=== PATIENT | male | born 1935 | race Caucasian/White ===

== ENCOUNTER → 2018-05-06 10:45 | Outpatient (CLI) | payer OTHER, SELFPAY ==
[2018-05-06 11:43] LABS: Add Manual Diff / Slide Review NO; Basophils Percent Auto 0.7 % (0-2); Eosinophils Percent Auto 3.6 % (2-4); Hematocrit 46.3 % (41-53); Hemoglobin 15.8 g/dL (13.5-17.5); Mean Corpuscular Hemoglobin 30.7 PG (26-34); Mean Corpuscular Volume 90.1 fL (80-100); Monocytes Percent Auto 8.9 % (3-14); Neutrophils Absolute Auto 6200 /uL (3000-5900); Neutrophils Percent Auto 69.8 % (50-75); Platelet Count 356 X10^3/uL (150-400); Red Blood Cell Count 5.14 X10^6/uL (4.5-5.9); Red Cell Distribution Width 13.1 % (11.6-14.8); White Blood Cell Count 8.8 X10^3/uL (4.5-11.0)
[2018-05-06 12:23] LABS: Alanine Aminotransferase 27 IU/L (21-72); Albumin 4.3 g/dL (3.5-5.0); Albumin Globulin Ratio 1.4 (1.0-2.8); Alkaline Phosphatase 102 U/L (38-126); Aspartate Aminotransferase 26 IU/L (17-59); BUN Creatinine Ratio 18.8 (6-22); Bilirubin Total 1.1 mg/dL (0.2-1.3); Blood Urea Nitrogen 15 mg/dL (9-20); Calcium 9.2 mg/dL (8.4-10.2); Carbon Dioxide 30 mmol/L (22-32); Chloride 106 mmol/L (98-107); Cholesterol 122 mg/dL (140-199); Estimated Glomerular Filt Rate > 60.0 mL/min (>60); Glucose 89 mg/dL (80-110); HDL Cholesterol 38 mg/dL (40-60); HEMOLYSIS < 15 (0-50); LDL Cholesterol Calculated 69 mg/dL (<100); Potassium 5.2 mmol/L (3.4-5.1); Sodium 146 mmol/L (137-145); Total Protein 7.3 g/dL (6.3-8.2); Triglycerides 74 mg/dL (35-150)
[2018-05-06 12:51] LABS: Prostate Specific Antigen Scrn 8.94 ng/mL (0.1-4.0)
[2018-05-06 12:52] LABS: Thyroid Stimulating Hormone 2.66 uIU/mL (0.47-4.68)
== END ==
PROVIDERS: PCP Family Medicine; Visit Provider Family Medicine
DX: E78.2 Mixed hyperlipidemia (principal)
CPT/HCPCS: 36415; 80053; 80061; 84443; 85025; G0103

== ENCOUNTER → 2018-11-11 10:38 | Outpatient (CLI) | payer OTHER, SELFPAY ==
[2018-11-11 11:30] LABS: Add Manual Diff / Slide Review NO; Basophils Absolute Auto 100 /uL (0-100); Basophils Percent Auto 0.6 % (0-2); Eosinophils Absolute Auto 400 /uL (0-450); Eosinophils Percent Auto 4.3 % (2-4); Hematocrit 48.3 % (41-53); Lymphocytes Absolute Auto 1200 /uL (1100-4500); Lymphocytes Percent Auto 13.6 % (25-40); Mean Corpuscular HGB Conc 33.1 % (30-36); Mean Corpuscular Hemoglobin 30.2 PG (26-34); Mean Corpuscular Volume 91.2 fL (80-100); Monocytes Absolute Auto 700 /uL (0-900); Monocytes Percent Auto 8.5 % (3-14); Neutrophils Absolute Auto 6400 /uL (1500-7000); Platelet Count 302 X10^3/uL (150-400); White Blood Cell Count 8.7 X10^3/uL (4.5-11.0)
[2018-11-11 11:49] LABS: Alanine Aminotransferase 30 IU/L (21-72); Albumin 4.4 g/dL (3.5-5.0); Albumin Globulin Ratio 1.3 (1.0-2.8); Alkaline Phosphatase 94 U/L (38-126); Aspartate Aminotransferase 28 IU/L (17-59); BUN Creatinine Ratio 21.4 (6-22); Bilirubin Total 1.9 mg/dL (0.2-1.3); Blood Urea Nitrogen 15 mg/dL (9-20); Carbon Dioxide 29 mmol/L (22-32); Chloride 102 mmol/L (98-107); Cholesterol 124 mg/dL (140-199); Estimated Glomerular Filt Rate > 60.0 mL/min (>60); Globulin 3.4 g/dL (1.7-4.1); Glucose 93 mg/dL (80-110); HDL Cholesterol 32 mg/dL (40-60); HEMOLYSIS < 15 (0-50); LDL Cholesterol Calculated 70 mg/dL (<100); Potassium 4.5 mmol/L (3.4-5.1); Sodium 141 mmol/L (137-145); Total Protein 7.8 g/dL (6.3-8.2); Triglycerides 111 mg/dL (35-150)
[2018-11-11 12:16] LABS: Thyroid Stimulating Hormone 3.17 uIU/mL (0.47-4.68)
== END ==
PROVIDERS: PCP Family Medicine; Visit Provider Family Medicine
DX: E78.2 Mixed hyperlipidemia (principal)
CPT/HCPCS: 36415; 80053; 80061; 84443; 85025

== ENCOUNTER 2019-01-07 02:05 | Emergency (ER) | payer OTHER, SELFPAY ==
--- NOTE | 2019-01-07 02:08 | ED.SYNCOPE ---
HPI - Syncope General Chief Complaint: Syncope Stated Complaint: Syncope Time Seen by Provider: 01/07/19 02:08 Source: patient and EMS Mode of arrival: EMS Limitations: altered mental status History of Present Illness HPI narrative: The patient apparently fell in the hallway at home, on his way to the bathroom. His son heard him go down. When his son reached him he was unconscious lying on the floor. Paramedics were summoned. There were waking him. He was able sit up without issues. He was able stand without issues. The patient is oriented to person and place upon arrival. He has no complaints of chest pain or dyspnea. He denies headache. He denies visual changes. He denies focal weakness and numbness. He has had no palpitations. He has no cardiac history. His son suggested his memory has been in decline. Related Data Home Medications Medication Instructions Recorded Confirmed ASPIRIN (#ASPIRIN) 81 mg PO QDAY #0 08/22/11 11/11/18 Previous Rx's Medication Instructions Recorded sildenafil [Viagra] 100 mg PO PRN #5 tab 06/28/17 ondansetron [Zofran ODT] 4 mg SUBLINGUAL Q6HP PRN #10 odt 09/27/17 lisinopril 10 mg tablet 20 mg PO QDAY #180 tab 11/11/18 simvastatin 40 mg tablet 40 mg PO HS #90 tab 11/11/18 Allergies Allergy/AdvReac Type Severity Reaction Status Date / Time ciprofloxacin Allergy Unknown DIZZY/LIGHT Unverified 11/11/18 10:10 HEADED/CONF USION/AGITA TION Sulfa (Sulfonamide Allergy Unknown Unverified 11/11/18 10:10 Antibiotics) Review of Systems Review of Systems ROS Unobtainable: All systems reviewed & are unremarkable except as noted in HPI and below Constitutional Denies chills, Denies fatigue, Denies fever(s), Denies frequent falls, Denies lethargy and Denies weakness Eyes Denies change in vision and Denies loss of vision ENT Ears, Nose, Mouth, and Throat: Denies neck pain and Denies sore throat Cardiovascular Denies chest pain, Denies irregular heart rhythm, Denies lightheadedness, Denies palpitations, Denies dyspnea, Denies dyspnea on exertion and Denies orthopnea Respiratory Denies cough, Denies dyspnea, Denies dyspnea on exertion and Denies wheezing Gastrointestinal Gastrointestinal: Denies abdominal pain, Denies change in bowel habits, Denies diarrhea, Denies nausea and Denies vomiting Musculoskeletal Denies neck pain Integumentary/Breasts Denies pruritus, Denies erythema, Denies rash and Denies wounds Neurologic Denies frequent falls, Denies loss of vision and Denies weakness Endocrine Denies fatigue and Denies palpitations Allergic/Immunologic Denies wheezing [facility] Medical History Asthma (Chronic) Coronary artery disease (Chronic) Depression (Chronic) Elevated PSA (Chronic) Hyperlipidemia (Chronic) Hypertension (Chronic) Surgical History History of colon polyps (Resolved ~2007) S/P CABG x 3 (Resolved ~2006) Family History (Updated 02/08/18 @ 22:28 by Jennifer Carvajal) Father Stroke Social History Smoking Status: Former smoker Family History Father Stroke Social History Smoking Status: Former smoker Exam Initial Vital Signs Initial Vital Signs: Vital Signs Pulse Rate 65 01/07/19 02:11 Respiratory Rate 18 01/07/19 02:11 Blood Pressure 115/58 L 01/07/19 02:11 Pulse Oximetry 96 01/07/19 02:11 Const General: cooperative and well developed Nutritional Appearance: well nourished Orientation: alert, awake, oriented x3 and not confused [facility] Head: normocephalic Face and sinus: normal facial exam Mouth: oral mucosae normal Eyes General: appearance normal, both eyes and all related structures Eyelids: eyelids normal Conjunctivae: conjunctivae normal Sclera: sclerae normal Pupils: PERRL EOM: EOM intact bilaterally Neck Neck: supple and No tender Chest Chest: normal inspection of the chest Resp Effort & Inspection: normal respiratory effort, able to speak in complete sentences, no respiratory distress and no use of accessory muscles Auscultation: clear to auscultation bilaterally, no rales, no rhonchi and no wheezes Cardio Rate: regular rate Rhythm: regular rhythm Heart Sounds: no click, no gallops, no murmurs and no rubs Pulses: normal peripheral pulses GI Inspection: non-distended Palpation: soft, no hepatosplenomegaly, No guarding, No pulsatile mass and No tender Auscultation: normal bowel sounds Skin General: no rashes or lesions noted, No jaundice and No petechiae Neuro General: alert, oriented x3, gait normal and no focal motor deficits Speech: speech normal Extrem General: full ROM, no clubbing, cyanosis or edema, no pedal edema and no calf tenderness Psych Appearance: well kempt Mental Status: mental status grossly normal Attitude: cooperative Thought Content: normal Judgment: judgment good Course Course Narrative: The patient has been asymptomatic and neurologically intact since arrival. Posturals were normal. He can ambulate without assistance. There is no cardiovascular, neurologic, infectious, or obvious metabolic reason for the patient to pass out. His nurse noted that he had stool in his underwear, the nurse suggested he may have had a vasovagal episode shortly after leaving the toilet. This was explained to the patient. He feels well now. He is discharged home. Orders Ordered: ED Orders 01/07/19 EKG-12 Lead Stat 01/07/19 02:23 EKG-12 Lead Stat 01/07/19 02:26 Complete Blood Count AUTO DIFF Stat Comprehensive Metabolic Panel Stat Troponin & CK Cardiac Panel Stat Discontinued Medications Sodium Chloride (Normal Saline 0.9%) 1,000 mls @ 1,000 mls/hr IV BOLUS ONE Stop: 01/07/19 03:22 Last Admin: 01/07/19 02:34 Dose: 1,000 mls/hr Vital Signs - 8 hr 01/07/19 02:11 01/07/19 02:22 01/07/19 02:45 Temperature 97.9 F Pulse Rate 65 68 Pulse Rate [Orthostatic Lying] Pulse Rate [Orthostatic Sitting] Pulse Rate [Orthostatic Standing] Respiratory Rate 18 18 Blood Pressure 115/58 L Blood Pressure [Left Arm] 112/59 L Blood Pressure [Orthostatic Lying] Blood Pressure [Orthostatic Sitting] Blood Pressure [Orthostatic Standing] Pulse Oximetry 96 96 01/07/19 03:15 01/07/19 03:16 Temperature Pulse Rate Pulse Rate [Orthostatic Lying] 76 Pulse Rate [Orthostatic Sitting] 74 Pulse Rate [Orthostatic Standing] 76 Respiratory Rate Blood Pressure Blood Pressure [Left Arm] Blood Pressure [Orthostatic Lying] 113/60 Blood Pressure [Orthostatic Sitting] 114/65 Blood Pressure [Orthostatic Standing] 124/60 Pulse Oximetry MDM - Syncope Lab Data Result diagrams: 01/07/19 02:26 01/07/19 02:26 Lab Results 01/07/19 01/07/19 Range/Units 02:26 02:26 WBC 9.5 (4.5-11.0) X10^3/uL RBC 4.94 (4.5-5.9) X10^6/uL Hgb 15.3 (13.5-17.5) g/dL Hct 45.5 (41-53) % MCV 92.1 (80-100) fL MCH 31.0 (26-34) PG MCHC 33.7 (30-36) % RDW 13.0 (11.6-14.8) % Plt Count 294 (150-400) X10^3/uL Neut % (Auto) 66.2 (50-75) % Lymph % (Auto) 22.3 L (25-40) % [place] % (Auto) 7.3 (3-14) % Eos % (Auto) 3.6 (2-4) % Baso % (Auto) 0.6 (0-2) % Neut # (Auto) 6300 (6251-0581) /uL Lymph # (Auto) 2100 (1720-8934) /uL [place] # (Auto) 700 (0-900) /uL Eos # (Auto) 300 (0-450) /uL Baso # (Auto) 100 (0-100) /uL Sodium 140 (137-145) mmol/L Potassium 4.0 (3.4-5.1) mmol/L Chloride 103 (98-107) mmol/L Carbon Dioxide 26 (22-32) mmol/L BUN 21 H (9-20) mg/dL Creatinine 0.90 (0.66-1.25) mg/dL Estimated GFR > 60.0 (>60) mL/min BUN/Creatinine Ratio 23.3 H (6-22) Glucose 123 H (80-110) mg/dL Calcium 9.0 (8.4-10.2) mg/dL Total Bilirubin 1.0 (0.2-1.3) mg/dL AST 29 (17-59) IU/L ALT 23 (21-72) IU/L Alkaline Phosphatase 98 (38-126) U/L Total Creatine Kinase 68 (55-170) U/L CK-MB (CK-2) TNP CK-MB (CK-2) Rel Index TNP Troponin I 0.013 (0.01-0.034) ng/mL Total Protein 7.6 (6.3-8.2) g/dL Albumin 4.3 (3.5-5.0) g/dL Globulin 3.3 (1.7-4.1) g/dL Albumin/Globulin Ratio 1.3 (1.0-2.8) ECG Data Attestation: I personally reviewed and interpreted this ECG as follows: (Normal sinus rhythm rate 67 be PN incomplete RBBB. Voltage criteria for LVH. Possible anterior ND, no acute findings.) Discharge Plan Departure Patient Disposition: Home Clinical Impression: Syncope, vasovagal Discharge Date/Time: 01/07/19 04:05 Interventions: ED Discharge Assessment Last Done: 01/07/19 04:18 Instructions: DI for Syncope in Adults (Fainting) Activity Restrictions/Additional Instructions: Continue her current symptoms. Follow-up with her doctor, at home cardiac monitoring may be useful. Return the ER as needed. Prescriptions: No Action ASPIRIN (#ASPIRIN) 81 mg PO QDAY Qty: 0 RF: 0 sildenafil [Viagra] 100 MG tablet 100 mg PO PRN Qty: 5 RF: 3 ondansetron [Zofran ODT] 4 MG tablet,disintegrating 4 mg Sublingual Q6HP PRNQty: 10 RF: 0 lisinopril 10 mg tablet 20 mg PO QDAY Qty: 180 RF: 3 simvastatin 40 mg tablet 40 mg PO HS Qty: 90 RF: 3 Referrals: Corey Bragg MD [Primary Care Provider] -
[2019-01-07 02:11] VITALS: BP 115/58; PULSE 65; RESP 18; O2SAT 96
[2019-01-07 02:22] VITALS: TEMP 36.6
[2019-01-07 02:33] LABS: Add Manual Diff / Slide Review NO; Basophils Absolute Auto 100 /uL (0-100); Basophils Percent Auto 0.6 % (0-2); Eosinophils Absolute Auto 300 /uL (0-450); Eosinophils Percent Auto 3.6 % (2-4); Hematocrit 45.5 % (41-53); Hemoglobin 15.3 g/dL (13.5-17.5); Lymphocytes Absolute Auto 2100 /uL (1100-4500); Lymphocytes Percent Auto 22.3 % (25-40); Mean Corpuscular HGB Conc 33.7 % (30-36); Mean Corpuscular Volume 92.1 fL (80-100); Monocytes Absolute Auto 700 /uL (0-900); Monocytes Percent Auto 7.3 % (3-14); Neutrophils Absolute Auto 6300 /uL (1500-7000); Neutrophils Percent Auto 66.2 % (50-75); Platelet Count 294 X10^3/uL (150-400); Red Blood Cell Count 4.94 X10^6/uL (4.5-5.9); White Blood Cell Count 9.5 X10^3/uL (4.5-11.0)
[2019-01-07] MEDS: SODIUM CHLORIDE 0.9% 1,000 ML 1000 ML IV (02:34)
[2019-01-07 02:35] LABS: Alanine Aminotransferase 23 IU/L (21-72); Albumin 4.3 g/dL (3.5-5.0); Albumin Globulin Ratio 1.3 (1.0-2.8); Alkaline Phosphatase 98 U/L (38-126); Aspartate Aminotransferase 29 IU/L (17-59); BUN Creatinine Ratio 23.3 (6-22); Blood Urea Nitrogen 21 mg/dL (9-20); Carbon Dioxide 26 mmol/L (22-32); Chloride 103 mmol/L (98-107); Creatine Kinase 68 U/L (55-170); Estimated Glomerular Filt Rate > 60.0 mL/min (>60); Globulin 3.3 g/dL (1.7-4.1); Glucose 123 mg/dL (80-110); HEMOLYSIS 27 (0-50); Sodium 140 mmol/L (137-145); Total Protein 7.6 g/dL (6.3-8.2)
[2019-01-07 02:45] VITALS: BP 112/59; PULSE 68; RESP 18; O2SAT 96
[2019-01-07 02:47] LABS: Troponin I 0.013 ng/mL (0.01-0.034)
[2019-01-07 03:15] VITALS: BP 113/60; PULSE 76
[2019-01-07 03:16] VITALS: BP 114/65; BP 124/60; PULSE 74; PULSE 76
--- NOTE | 2019-01-28 19:49 | PC.NURSE ---
He received one liter normal saline bolus over one hour,it infused at 0325 on 01/07/19.
== END 2019-01-07 04:05 | disposition home or self-care (01) ==
PROVIDERS: Emergency Provider Emergency Medicine; PCP Family Medicine
DX: R55 Syncope and collapse (principal)
CPT/HCPCS: 80053; 82550; 84484; 85025; 93005; 93010; 96360; 99283; 99284

== ENCOUNTER → 2019-11-10 10:35 | Outpatient (CLI) | payer OTHER, SELFPAY ==
[2019-11-10 12:39] LABS: Add Manual Diff / Slide Review NO; Basophils Absolute Auto 100 /uL (0-100); Basophils Percent Auto 0.6 % (0-2); Eosinophils Absolute Auto 200 /uL (0-450); Hematocrit 47.6 % (41-53); Hemoglobin 15.8 g/dL (13.5-17.5); Lymphocytes Absolute Auto 1300 /uL (1100-4500); Lymphocytes Percent Auto 13.5 % (25-40); Mean Corpuscular HGB Conc 33.2 % (30-36); Mean Corpuscular Hemoglobin 30.5 PG (26-34); Mean Corpuscular Volume 91.9 fL (80-100); Monocytes Absolute Auto 900 /uL (0-900); Monocytes Percent Auto 9.4 % (3-14); Neutrophils Absolute Auto 7100 /uL (1500-7000); Neutrophils Percent Auto 74.5 % (50-75); Platelet Count 260 X10^3/uL (150-400); Red Blood Cell Count 5.18 X10^6/uL (4.5-5.9); Red Cell Distribution Width 13.2 % (11.6-14.8); White Blood Cell Count 9.5 X10^3/uL (4.5-11.0)
[2019-11-10 13:24] LABS: Alanine Aminotransferase 26 IU/L (<50); Albumin 4.4 g/dL (3.5-5.0); Albumin Globulin Ratio 1.3 (1.0-2.8); Alkaline Phosphatase 121 U/L (38-126); Aspartate Aminotransferase 27 IU/L (17-59); BUN Creatinine Ratio 16.5 (6-22); Bilirubin Total 2.4 mg/dL (0.2-1.3); Blood Urea Nitrogen 15 mg/dL (9-20); Calcium 9.4 mg/dL (8.4-10.2); Carbon Dioxide 29 mmol/L (22-32); Chloride 104 mmol/L (98-107); Cholesterol 128 mg/dL (140-199); Estimated Glomerular Filt Rate > 60.0 mL/min (>60); Globulin 3.4 g/dL (1.7-4.1); Glucose 95 mg/dL (80-110); HDL Cholesterol 31 mg/dL (40-60); HEMOLYSIS < 15 (0-50); LDL Cholesterol Calculated 71 mg/dL (<100); Sodium 142 mmol/L (137-145); Total Protein 7.8 g/dL (6.3-8.2); Triglycerides 130 mg/dL (35-150)
[2019-11-10 13:33] LABS: Potassium 6.2 mmol/L (3.4-5.1)
== END ==
PROVIDERS: PCP Family Medicine; Referring Provider Family Medicine; Visit Provider Family Medicine
DX: E78.2 Mixed hyperlipidemia (principal)
CPT/HCPCS: 36415; 80053; 80061; 85025

== ENCOUNTER → 2019-11-30 09:48 | Outpatient (CLI) | payer OTHER, SELFPAY ==
[2019-11-30 10:58] LABS: HEMOLYSIS < 15 (0-50); Potassium 4.4 mmol/L (3.4-5.1)
== END ==
PROVIDERS: PCP Family Medicine; Referring Provider Family Medicine; Visit Provider Family Medicine
DX: E87.5 Hyperkalemia (principal)
CPT/HCPCS: 36415; 84132

== ENCOUNTER → 2020-05-17 15:53 | Outpatient (CLI) | payer OTHER, SELFPAY | PROVIDERS: PCP Family Medicine; Visit Provider Family Medicine | DX: R30.0 Dysuria (principal); N39.0 Urinary tract infection, site not specified | CPT/HCPCS: 87086 ==

== ENCOUNTER → 2020-05-17 16:04 | Outpatient (CLI) | payer OTHER, SELFPAY ==
[2020-05-17 16:56] LABS: Add Manual Diff / Slide Review NO; Basophils Absolute Auto 0 /uL (0-100); Basophils Percent Auto 0.4 % (0-2); Eosinophils Absolute Auto 200 /uL (0-450); Eosinophils Percent Auto 2.6 % (2-4); Hematocrit 46.4 % (41-53); Hemoglobin 15.6 g/dL (13.5-17.5); Lymphocytes Absolute Auto 1300 /uL (1100-4500); Mean Corpuscular HGB Conc 33.6 % (30-36); Mean Corpuscular Hemoglobin 30.3 PG (26-34); Mean Corpuscular Volume 90.3 fL (80-100); Monocytes Absolute Auto 800 /uL (0-900); Monocytes Percent Auto 8.2 % (3-14); Neutrophils Absolute Auto 7400 /uL (1500-7000); Neutrophils Percent Auto 75.8 % (50-75); Platelet Count 271 X10^3/uL (150-400); Red Blood Cell Count 5.15 X10^6/uL (4.5-5.9); Red Cell Distribution Width 12.7 % (11.6-14.8); White Blood Cell Count 9.8 X10^3/uL (4.5-11.0)
[2020-05-17 17:17] LABS: BUN Creatinine Ratio 17.2 (6-22); Blood Urea Nitrogen 16 mg/dL (9-20); Calcium 9.4 mg/dL (8.4-10.2); Carbon Dioxide 33 mmol/L (22-32); Chloride 102 mmol/L (98-107); Estimated Glomerular Filt Rate > 60.0 mL/min (>60); Glucose 94 mg/dL (80-110); HEMOLYSIS < 15 (0-50); Sodium 143 mmol/L (137-145)
== END ==
PROVIDERS: PCP Family Medicine; Referring Provider Family Medicine; Visit Provider Family Medicine
DX: N39.0 Urinary tract infection, site not specified (principal); R30.0 Dysuria
CPT/HCPCS: 36415; 80048; 85025; 87086

== ENCOUNTER → 2020-12-29 14:26 | Outpatient (CLI) | payer MEDICARE, SELFPAY ==
[2020-12-29] MEDS: COVID-19 VACC #1, MRNA(MOD) 100 MCG/0.5 ML VIAL IM (14:37)
== END ==
PROVIDERS: PCP Family Medicine; Visit Provider Internal Medicine
DX: Z23 Encounter for immunization (principal)
CPT/HCPCS: 0011A; 91301

== ENCOUNTER → 2021-02-03 14:23 | Outpatient (CLI) | payer MEDICARE, SELFPAY ==
[2021-02-03] MEDS: COVID-19 VACC #2, MRNA(MOD) 100 MCG/0.5 ML VIAL IM (14:29)
== END ==
PROVIDERS: PCP Family Medicine; Visit Provider Internal Medicine
DX: Z23 Encounter for immunization (principal)
CPT/HCPCS: 0012A; 91301

== ENCOUNTER → 2021-06-06 09:38 | Outpatient (CLI) | payer OTHER, SELFPAY ==
[2021-06-06 10:34] LABS: Add Manual Diff / Slide Review NO; Basophils Absolute Auto 100 /uL (0-100); Basophils Percent Auto 0.6 % (0-2); Eosinophils Absolute Auto 400 /uL (0-450); Eosinophils Percent Auto 3.5 % (2-4); Hematocrit 47.3 % (41-53); Hemoglobin 15.6 g/dL (13.5-17.5); Lymphocytes Absolute Auto 1300 /uL (1100-4500); Mean Corpuscular Hemoglobin 30.2 PG (26-34); Mean Corpuscular Volume 91.6 fL (80-100); Monocytes Absolute Auto 1000 /uL (0-900); Monocytes Percent Auto 8.4 % (3-14); Neutrophils Absolute Auto 9100 /uL (1500-7000); Neutrophils Percent Auto 76.5 % (50-75); Platelet Count 275 X10^3/uL (150-400); Red Blood Cell Count 5.16 X10^6/uL (4.5-5.9); White Blood Cell Count 11.9 X10^3/uL (4.5-11.0)
[2021-06-06 11:21] LABS: Alanine Aminotransferase 17 IU/L (<50); Albumin 4.4 g/dL (3.5-5.0); Albumin Globulin Ratio 1.4 (1.0-2.8); Alkaline Phosphatase 101 U/L (38-126); Aspartate Aminotransferase 25 IU/L (17-59); BUN Creatinine Ratio 19.7 (6-22); Bilirubin Total 1.8 mg/dL (0.2-1.3); Blood Urea Nitrogen 15 mg/dL (9-20); Calcium 9.5 mg/dL (8.4-10.2); Carbon Dioxide 28 mmol/L (22-32); Chloride 101 mmol/L (98-107); Cholesterol 141 mg/dL (140-199); Estimated Glomerular Filt Rate > 60.0 mL/min (>60); Globulin 3.1 g/dL (1.7-4.1); Glucose 97 mg/dL (80-110); HDL Cholesterol 46 mg/dL (40-60); HEMOLYSIS < 15 (0-50); LDL Cholesterol Calculated 79 mg/dL (<100); Potassium 4.6 mmol/L (3.4-5.1); Sodium 139 mmol/L (137-145); Total Protein 7.5 g/dL (6.3-8.2); Triglycerides 81 mg/dL (35-150)
[2021-06-06 11:48] LABS: Prostate Specific Antigen 22.4 ng/mL (0.10-4.00)
== END ==
PROVIDERS: PCP Family Medicine; Referring Provider Family Medicine; Visit Provider Family Medicine
DX: R39.9 Unspecified symptoms and signs involving the genitourinary system (principal); Z12.11 Encounter for screening for malignant neoplasm of colon; R97.20 Elevated prostate specific antigen [PSA]
CPT/HCPCS: 36415; 80053; 80061; 84153; 85025

== ENCOUNTER → 2021-08-11 15:04 | Outpatient (CLI) | payer OTHER, SELFPAY ==
[2021-08-11 18:07] LABS: Prostate Specific Antigen 19.3 ng/mL (0.10-4.00)
== END ==
PROVIDERS: PCP Family Medicine; Referring Provider Urology; Visit Provider Urology
DX: R97.20 Elevated prostate specific antigen [PSA] (principal); R41.3 Other amnesia; R39.9 Unspecified symptoms and signs involving the genitourinary system; R39.0 Extravasation of urine
CPT/HCPCS: 36415; 51798; 81002; 84153; 99215

== ENCOUNTER → 2021-08-28 06:44 | Outpatient (CLI) | payer OTHER, SELFPAY ==
--- NOTE | 2021-08-28 06:45 | DI.MRI.S_ITS ---
PROCEDURE: MR PELIS WO/W CON INDICATIONS: Elevated PSA question prostate lesion TECHNIQUE: Coronal HASTE, axial T1 FSE with fat saturation, 3-plane nonbreath-hold T2 FSE. After the administration of contrast, dynamic axial, delayed axial and coronal VIBE or 2-D FLASH with fat saturation through the pelvis. Optional diffusion weighted imaging and ADC may be performed. COMPARISON: None. FINDINGS: Image quality: Diffusion weighted and dynamic contrast enhanced images are diagnostic. Prostate: Gland size is 5.5 x 5.4 x 5 cm; ellipsoid gland volume is 77 mL. Multiple BPH nodules. No significant intrinsic T1 hyperintense foci to suggest hemorrhage. Lesion size(s): Lesion 1: 1.8 x 1.6 cm, (12/09). Lesion 2: 1.2 x 0.6 cm, (12/12). Lesion location(s) (sector): Lesion 1: Left mid gland transitional zone anteriorly Lesion 2: Right apex peripheral zone Lesion description: Lesion 1: Oval Lesion 2: Oval T2 weighted imaging (T2WI) morphology score: Lesion 1: 5 Lesion 2: 4 Diffusion weighted imaging (DWI) morphology score: Lesion 1: 5 Lesion 2: 3 Dynamic contrast enhancement (DCE): Lesion 1: Present Lesion 2: Present Lesion PI-RADS score: Lesion 1: PI-RADS 5. No extraprostatic extension. Lesion 2: PI-RADS 4. Genitourinary system: Bladder diverticuli. Distal ureters are non distended. Bowel and peritoneum: No pathologic free pelvic fluid. Inferior colon and small bowel loops are normal in caliber. Diverticulosis. Nodes and vessels: No pelvic or inguinal adenopathy by size criteria. Abdominal aortic aneurysm measuring 4.5 cm. 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 Soft tissues: No definite inguinal hernias. Bones: Marrow demonstrates normal overall signal, without lesions to suggest metastases. IMPRESSION: 1. Prostatomegaly with multiple BPH nodules. 2. Left mid gland transitional zone anterior observation measuring 1.8 cm. PI-RADS 5. 3. Right apex peripheral zone observation measuring 1.2 cm. PI-RADS 4. 4. No enlarged lymph nodes. 5. Multiple bladder diverticuli. This suggest bladder outlet obstruction. 6. Abdominal aortic aneurysm measuring 4.5 cm. 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 -Recommend further evaluation with CTA abdomen and pelvis. 7. Diverticulosis. Comment: Findings were called to the office of Dr. Alex Walker at the time of dictation. Dictated by: Cruz Mahoney M.D. on 08/28/2021 at 9:00 Approved by: Cruz Mahoney M.D. on 08/28/2021 at 9:28
== END ==
PROVIDERS: PCP Family Medicine; Referring Provider Urology; Visit Provider Urology
DX: N40.2 Nodular prostate without lower urinary tract symptoms (principal); N40.0 Benign prostatic hyperplasia without lower urinary tract symptoms; I71.4 Abdominal aortic aneurysm, without rupture; R97.20 Elevated prostate specific antigen [PSA]; N32.3 Diverticulum of bladder; K57.90 Diverticulosis of intestine, part unspecified, without perforation or abscess without bleeding
CPT/HCPCS: 72197; A9579

== ENCOUNTER → 2021-09-08 09:59 | Outpatient (CLI) | payer OTHER, SELFPAY ==
--- NOTE | 2021-09-08 10:01 | DI.NM.S_ITS ---
PROCEDURE: NM BONE SCAN WHOLE BODY RADIOPHARMACEUTICAL: 21.4 mCi Tc-99m MDP IV. INDICATIONS: Prostate cancer new diagnosis TECHNIQUE: Delayed whole-body scintigrams were obtained approximately 3-4 hours after intravenous injection of radiotracer. Anterior and posterior views were acquired from vertex to feet. Additional left and right oblique views of the pelvis were obtained. COMPARISON: [facility], MR, MR PELVIS WO/W CON, 08/28/2021, 7:08. FINDINGS: There is a focus of increased uptake in the sternum suspicious for metastasis. Increased activity in paranasal area and maxilla are likely related to paranasal sinus disease and dental disease. No lesions are identified in skull, clavicles, scapulae, ribs, bony pelvis, and visualized shafts of the long bones. There is low level increased uptake in cervical, thoracic and lumbar spine with distribution indistinguishable from degenerative disc and facet disease; early metastasis to spine could be obscured by degenerative changes. There are foci of increased periarticular activity involving shoulders, sternoclavicular joints, elbows, wrists, hands, hips, SI joints, ankles and feet, compatible with degenerative/arthritic changes. Pelvis is partially obscured by intense urinary activity. IMPRESSION: 1. Increased uptake in sternum is suspicious for metastasis. 2. Foci of increased uptake is also noted in the lower cervical spine, lower thoracic spine and lower lumbar spine are indeterminate. Recommend radiographic correlation. Dictated by: Yanet Hamilton M.D. on 09/08/2021 at 17:12 Approved by: Yanet Hamilton M.D. on 09/08/2021 at 17:19
[2021-09-08 10:59] LABS: BUN Creatinine Ratio 18.8 (6-22); Blood Urea Nitrogen 16 mg/dL (9-20); Calcium 9.2 mg/dL (8.4-10.2); Carbon Dioxide 28 mmol/L (22-32); Chloride 104 mmol/L (98-107); Estimated Glomerular Filt Rate > 60.0 mL/min (>60); Glucose 105 mg/dL (80-110); HEMOLYSIS < 15 (0-50); Potassium 4.4 mmol/L (3.4-5.1); Sodium 139 mmol/L (137-145)
== END ==
PROVIDERS: PCP Family Medicine; Referring Provider Urology; Visit Provider Urology
DX: C61 Malignant neoplasm of prostate (principal); Z01.812 Encounter for preprocedural laboratory examination
CPT/HCPCS: 36415; 78306; 80048; A9503

== ENCOUNTER → 2021-09-13 15:35 | Outpatient (CLI) | payer OTHER, SELFPAY | PROVIDERS: PCP Family Medicine; Referring Provider Urology; Visit Provider Urology | DX: C61 Malignant neoplasm of prostate (principal); M81.0 Age-related osteoporosis without current pathological fracture; R97.20 Elevated prostate specific antigen [PSA]; M85.852 Other specified disorders of bone density and structure, left thigh; R41.3 Other amnesia; R39.9 Unspecified symptoms and signs involving the genitourinary system | CPT/HCPCS: 77080; 96402; 99214; J9217 ==

== ENCOUNTER 2021-09-19 05:34 | Emergency (ER) | payer OTHER, SELFPAY ==
--- NOTE | 2021-09-19 05:46 | ED.MALEGU ---
HPI - Male Genitourinary General Chief complaint: Urogenital-Male Stated complaint: unable to urinate x2 days Time Seen by Provider: 09/19/21 05:42 History of Present Illness HPI Narrative: Patient brought here by his son. Complaints of decreased urination the past 2 days. History of cancer of the prostate. Patient has had Mack catheters in the past for urinary retention according to son. Patient is followed by Urology, Dr. Alex Walker. Recently had PSA levels measured 6 days ago. Patient thinks he has been drinking plain water and fluids. However son states he has not been drinking very much through the day because afraid of not being able to urinate if he drinks anything Related Data Home Medications Medication Instructions Recorded Confirmed ASPIRIN (#ASPIRIN) 81 mg PO QDAY #0 08/22/11 09/13/21 Previous Rx's Medication Instructions Recorded ondansetron 4 mg disintegrating 4 mg SUBLINGUAL Q6HP PRN #10 odt 09/27/17 tablet (Zofran ODT) simvastatin 40 mg tablet See Rx Instructions .ROUTE 11/22/20 .COMPLEX #90 tab lisinopril 10 mg tablet See Rx Instructions .ROUTE 06/06/21 .COMPLEX #180 tab bicalutamide 50 mg tablet (Casodex) 50 mg PO DAILY #30 tab 08/30/21 cephalexin 500 mg capsule 500 mg PO BID #10 cap 09/19/21 Allergies Allergy/AdvReac Type Severity Reaction Status Date / Time ciprofloxacin Allergy Unknown DIZZY/LIGHT Verified 09/13/21 15:10 HEADED/CONF USION/AGITA TION Sulfa (Sulfonamide Allergy Unknown Verified 09/13/21 15:10 Antibiotics) Review of Systems Review of Systems Narrative: GENERAL: Denies chills, fatigue, malaise, fever, sweats. HEENT: Denies sinus pain, ear pain, sore throat RESPIRATORY: Denies dyspnea, cough CARDIOVASCULAR: Denies chest pain, palpitations GASTROINTESTINAL: Denies nausea, vomiting, abdominal pain : Positive retention/oliguria MUSCULOSKELETAL: denies muscle or bony pain SKIN: Denies rash, skin lesions NEUROLOGIC: Denies weakness, numbness ROS Unobtainable: All systems reviewed & are unremarkable except as noted in HPI and below Patient History Medical History Asthma Coronary artery disease Depression Elevated PSA Excessive cerumen in both ear canals Hyperlipidemia Hypertension Lower urinary tract symptoms (LUTS) Prostate cancer Screen for colon cancer Surgical History History of colon polyps (~2007) S/P CABG x 3 (~2006) Family History Father Stroke Social History marital status: number of children: 3 Previous occupational history: retired [employer] Smoking Status: Former smoker Smoking Status: Former smoker Exam Narrative Exam Narrative: GENERAL: in no distress, not toxic not dyspneic HEAD: Normocephalic. EYES: Pupils equal round No scleral icterus. NECK: Trachea midline. CARDIOVASCULAR: Regular rate and rhythm without murmurs RESPIRATORY: Clear to auscultation. Breath sounds equal bilaterally. No wheezes, rales, or rhonchi. GASTROINTESTINAL: Abdomen soft, mild suprapubic tenderness/fullness. Normal external genital exam. EXTREMITIES: No gross deformities. NEURO: Awake alert oriented self and event SKIN: Warm and dry PSYCH: Not anxious, is cooperative Initial Vital Signs Initial Vital Signs: Vital Signs Temperature 99.1 F 09/19/21 05:49 Pulse Rate 91 H 09/19/21 05:49 Respiratory Rate 15 09/19/21 05:49 Blood Pressure 192/92 H 09/19/21 05:49 Pulse Oximetry 96 09/19/21 05:49 Course Course Course Narrative: Mack catheter placed with ease, 600 mL urine in bag Orders Ordered: Discontinued Medications Cephalexin HCl (Cephalexin 250 Mg Capsule) 500 mg PO NOW ONE Stop: 09/19/21 06:27 Last Admin: 09/19/21 06:50 Dose: 500 mg Documented by: MACRINA Sodium Chloride (Normal Saline 0.9%) 1,000 mls @ 1,000 mls/hr IV BOLUS ONE Stop: 09/19/21 06:53 Last Infusion: 09/19/21 07:16 Dose: 0 mls/hr Documented by: Admin: 09/19/21 06:06 Dose: 1,000 mls/hr Documented by: MACRINA Reevaluation(s) Reevaluation #1: Reviewed results with patient and son. Agree with treatment plan and follow-up with his urologist. Prophylactic antibiotics provided. Labs are reassuring otherwise. 114/66 Time: 06:26 Vital Signs Vital signs: Vital Signs - 8 hr 09/19/21 05:49 Temperature 99.1 F Pulse Rate 91 H Respiratory Rate 15 Blood Pressure 192/92 H Pulse Oximetry 96 MDM - Male Genitourinary Differential Diagnosis Differential diagnosis: Likely urinary tract infection and acute retention of urine Lab Data Result diagrams: 09/19/21 06:00 09/19/21 06:00 Labs: Lab Results 09/19/21 09/19/21 09/19/21 Range/Units 05:45 06:00 06:00 WBC 11.4 H (4.5-11.0) X10^3/uL RBC 4.99 (4.5-5.9) X10^6/uL Hgb 14.9 (13.5-17.5) g/dL Hct 44.7 (41-53) % MCV 89.5 (80-100) fL MCH 29.8 (26-34) PG MCHC 33.2 (30-36) % RDW 12.7 (11.6-14.8) % Plt Count 257 (150-400) X10^3/uL Neut % (Auto) 76.2 H (50-75) % Lymph % (Auto) 12.2 L (25-40) % [place] % (Auto) 8.3 (3-14) % Eos % (Auto) 2.8 (2-4) % Baso % (Auto) 0.5 (0-2) % Neut # (Auto) 8700 H (4168-5958) /uL Lymph # (Auto) 1400 (6385-0271) /uL [place] # (Auto) 900 (0-900) /uL Eos # (Auto) 300 (0-450) /uL Baso # (Auto) 100 (0-100) /uL Sodium 136 L (137-145) mmol/L Potassium 4.3 (3.4-5.1) mmol/L Chloride 103 (98-107) mmol/L Carbon Dioxide 27 (22-32) mmol/L BUN 12 (9-20) mg/dL Creatinine 0.76 (0.66-1.25) mg/dL Estimated GFR > 60.0 (>60) mL/min BUN/Creatinine Ratio 15.8 (6-22) Glucose 120 H (80-110) mg/dL Calcium 9.2 (8.4-10.2) mg/dL Total Bilirubin 1.7 H (0.2-1.3) mg/dL AST 32 (17-59) IU/L ALT 22 (<50) IU/L Alkaline Phosphatase 102 (38-126) U/L Total Protein 7.8 (6.3-8.2) g/dL Albumin 4.4 (3.5-5.0) g/dL Globulin 3.4 (1.7-4.1) g/dL Albumin/Globulin Ratio 1.3 (1.0-2.8) Urine Color Yellow Urine Appearance Clear Urine pH 5.0 (4.5-8.0) Ur Specific [place] <=1.005 (1.000-1.035) Urine Protein Negative (Negative) Urine Glucose (UA) Negative (Negative) g/dL Urine Ketones Negative (NEGATIVE) Urine Occult Blood 3+ H (Negative) Urine Nitrate Negative (Negative) Urine Bilirubin Negative (NEGATIVE) Urine Urobilinogen 0.2 (0.2) E.U./dL Ur Leukocyte Esterase Negative (NEGATIVE) Urine RBC 0-1/hpf (0-5/HPF) Urine WBC None seen (0-5/HPF) Ur Transition Epith Cell 0-1/hpf (0-5/HPF) Urine Bacteria None seen (None) Ur Culture Indicated? Cult not indicated MDM Narrative Medical decision making narrative: Appropriate for discharge home. Exam and laboratory studies reassuring. Blood pressure pre Mack catheterization likely due to pain and discomfort. No imaging indicated. Return precautions reviewed patient and son. They desired discharge home. They agree with treatment plan. Discharge Plan Departure Patient Disposition: Home Clinical Impression: Acute retention of urine Instructions: How to Care for Your Mack Catheter -- Male, DI for Urinary Retention in Men Prescriptions: New cephalexin 500 mg capsule 500 mg PO BID Qty: 10 0RF No Action ASPIRIN (#ASPIRIN) 81 mg PO QDAY Qty: 0 0RF ondansetron [Zofran ODT] 4 MG tablet,disintegrating 4 mg Sublingual Q6HP PRNQty: 10 0RF simvastatin 40 mg tablet See Rx Instructions .ROUTE .COMPLEX Qty: 90 2RF Dose Instruction: TAKE 1 TABLET BY MOUTH AT BEDTIME Rx Instructions: TAKE 1 TABLET BY MOUTH AT BEDTIME lisinopril 10 mg tablet See Rx Instructions .ROUTE .COMPLEX Qty: 180 1RF Dose Instruction: TAKE 2 TABLETS BY MOUTH EVERY DAY Rx Instructions: TAKE 2 TABLETS BY MOUTH EVERY DAY bicalutamide [Casodex] 50 mg tablet 50 mg PO DAILY Qty: 30 0RF Referrals: Abraham Melton DO [Primary Care Provider] -
[2021-09-19 05:49] VITALS: BP 192/92; PULSE 91; RESP 15; TEMP 37.3; O2SAT 96; BMI 25.7
--- NOTE | 2021-09-19 05:56 | PC.NURSE ---
600 ml urine returned
[2021-09-19 05:58] LABS: Bilirubin Urine UA NEGATIVE (NEGATIVE); Color Urine UA YELLOW; Glucose Urine UA NEGATIVE (Negative); Ketones Urine UA NEGATIVE (NEGATIVE); Leukocyte Esterase Urine UA NEGATIVE (NEGATIVE); Nitrite Urine UA NEGATIVE (Negative); Occult Blood Urine UA 3+ (Negative); Protein Urine UA NEGATIVE (Negative); Specific Gravity Urine UA <=1.005 (1.000-1.035); Urobilinogen Urine UA 0.2 E.U./dL (0.2)
[2021-09-19 06:06] LABS: Appearance Urine UA CLEAR
[2021-09-19] MEDS: SODIUM CHLORIDE 0.9% 1,000 ML 1000 ML IV (06:06)
[2021-09-19 06:07] LABS: Bacteria Urine None Seen; Culture Indicated Urine Cult Not Indicated; RBC Urine 0-1/HPF (0-5/HPF); Transitional Epi Cells Urine 0-1/HPF (0-5/HPF); WBC Urine None Seen (0-5/HPF)
[2021-09-19 06:09] LABS: Add Manual Diff / Slide Review NO; Basophils Absolute Auto 100 /uL (0-100); Basophils Percent Auto 0.5 % (0-2); Eosinophils Absolute Auto 300 /uL (0-450); Eosinophils Percent Auto 2.8 % (2-4); Hematocrit 44.7 % (41-53); Hemoglobin 14.9 g/dL (13.5-17.5); Lymphocytes Absolute Auto 1400 /uL (1100-4500); Lymphocytes Percent Auto 12.2 % (25-40); Mean Corpuscular HGB Conc 33.2 % (30-36); Mean Corpuscular Hemoglobin 29.8 PG (26-34); Mean Corpuscular Volume 89.5 fL (80-100); Monocytes Absolute Auto 900 /uL (0-900); Monocytes Percent Auto 8.3 % (3-14); Neutrophils Absolute Auto 8700 /uL (1500-7000); Neutrophils Percent Auto 76.2 % (50-75); Platelet Count 257 X10^3/uL (150-400); Red Blood Cell Count 4.99 X10^6/uL (4.5-5.9); Red Cell Distribution Width 12.7 % (11.6-14.8); White Blood Cell Count 11.4 X10^3/uL (4.5-11.0)
[2021-09-19 06:18] LABS: Alanine Aminotransferase 22 IU/L (<50); Albumin 4.4 g/dL (3.5-5.0); Albumin Globulin Ratio 1.3 (1.0-2.8); Alkaline Phosphatase 102 U/L (38-126); Aspartate Aminotransferase 32 IU/L (17-59); BUN Creatinine Ratio 15.8 (6-22); Bilirubin Total 1.7 mg/dL (0.2-1.3); Blood Urea Nitrogen 12 mg/dL (9-20); Calcium 9.2 mg/dL (8.4-10.2); Carbon Dioxide 27 mmol/L (22-32); Chloride 103 mmol/L (98-107); Estimated Glomerular Filt Rate > 60.0 mL/min (>60); Globulin 3.4 g/dL (1.7-4.1); Glucose 120 mg/dL (80-110); HEMOLYSIS < 15 (0-50); Potassium 4.3 mmol/L (3.4-5.1); Sodium 136 mmol/L (137-145); Total Protein 7.8 g/dL (6.3-8.2)
[2021-09-19 06:28] VITALS: PULSE 80; O2SAT 96
[2021-09-19 06:29] VITALS: BP 114/66; PULSE 73; PULSE 78; RESP 18; O2SAT 93; O2SAT 94
[2021-09-19 06:30] VITALS: BP 113/65; PULSE 73; O2SAT 94
[2021-09-19] MEDS: cephALEXin 250 MG CAPSULE 500 MG PO (06:50)
[2021-09-19 06:53] VITALS: PULSE 79; O2SAT 94
[2021-09-19 07:01] VITALS: BP 130/65
--- NOTE | 2021-09-19 07:19 | PC.NURSE ---
leg bag placed on pt with instructions to pt and pt's son on emptying
== END 2021-09-19 07:20 | disposition home or self-care (01) ==
PROVIDERS: Emergency Provider Emergency Medicine; PCP Family Medicine
DX: R33.9 Retention of urine, unspecified (principal)
CPT/HCPCS: 36415; 80053; 81001; 85025; 96360; 99284

== ENCOUNTER → 2021-09-29 15:16 | Outpatient (CLI) | payer OTHER, SELFPAY ==
[2021-09-29 18:08] LABS: Prostate Specific Antigen 7.59 ng/mL (0.10-4.00)
[2021-10-06 15:10] LABS: 1,25-Dihydroxy, Vitamin D-2 <10 pg/mL (.)
== END ==
PROVIDERS: PCP Family Medicine; Referring Provider Urology; Visit Provider Urology
DX: C61 Malignant neoplasm of prostate (principal); M81.0 Age-related osteoporosis without current pathological fracture; R33.8 Other retention of urine
CPT/HCPCS: 36415; 51798; 52000; 82306; 82652; 84153

== ENCOUNTER → 2021-10-23 14:37 | Outpatient (CLI) | payer OTHER, SELFPAY ==
--- NOTE | 2021-10-23 14:40 | DI.RAD.S_ITS ---
PROCEDURE: XR STERNUM MIN 2V INDICATIONS: Metastisis TECHNIQUE: 2 views of the sternum acquired. COMPARISON: [facility], , CHEST 1 VIEW, 09/27/2017, 21:03. [facility], [place], [place] BONE SCAN WHOLE BODY, 09/08/2021, 14:06. FINDINGS: Sternotomy. Bones: No fractures or dislocations. No suspicious bony lesions. Soft tissues: Retrosternal soft tissues appear normal. IMPRESSION: Sternotomy. No suspicious tear in a lesion identified on radiograph. Dictated by: Yanet Hamilton M.D. on 10/23/2021 at 17:50 Approved by: Yanet Hamilton M.D. on 10/25/2021 at 8:00
--- NOTE | 2021-10-23 14:40 | DI.RAD.S_ITS ---
PROCEDURE: XR THORACIC SPINE 2V INDICATIONS: Metastasis TECHNIQUE: 3 views of the thoracic spine were acquired. COMPARISON: [place], [place], [place] BONE SCAN WHOLE BODY, 09/08/2021, 14:06. FINDINGS: Bones: No fractures or dislocations. No suspicious bony lesions. 12 pairs of ribs are noted, and appear intact where visualized. Mild degenerative disc changes noted in the upper thoracic spine. Moderate degenerative disc changes noted in the mid and lower thoracic spine. No osseous erosive changes. Soft tissues: No paravertebral stripe thickening. Status post CABG procedure. Probable gallstones. IMPRESSION: 1. No evidence of metastatic disease by plain film radiograph. No acute osseous lesion. If symptoms and/or clinical suspicion for pathology persists, evaluation with MRI should be considered for further assessment. 2. Multilevel degenerative disc disease. Dictated by: Mary Jane Woodson MD, PhD on 10/23/2021 at 16:04 Approved by: Mary Jane Woodson MD, PhD on 10/23/2021 at 16:06
--- NOTE | 2021-10-23 14:40 | DI.RAD.S_ITS ---
PROCEDURE: XR CERVICAL SPINE 2V OR 3V INDICATIONS: Metastasis TECHNIQUE: Three views of the cervical spine were acquired. COMPARISON: None. FINDINGS: Bones: No acute fractures or dislocations to the C7 level. There is reversal of the normal cervical lordosis, which may be positional or related to degenerative changes. Multilevel disc space narrowing degenerative endplate changes are seen that are most prominent at the C5-6 and C6-7 levels. Multilevel facet and uncovertebral joint hypertrophy are seen. No cervical ribs. The lateral masses of C1 appear intact on the odontoid view. No suspicious bony lesions. Soft tissues: No prevertebral soft tissue swelling. Sternal wires and mediastinal clips are partially imaged. IMPRESSION: 1. No definite focal osseous lesion is seen. If there is continued clinical concern, MRI may be obtained for further evaluation. 2. Multilevel spondylosis and reversal of the normal cervical lordosis. Dictated by: Jose Benites M.D. on 10/23/2021 at 17:00 Approved by: Jose Benites M.D. on 10/23/2021 at 17:03
--- NOTE | 2021-10-23 14:40 | DI.RAD.S_ITS ---
PROCEDURE: XR LUMBAR SPINE 2-3V INDICATIONS: Metastasis TECHNIQUE: 3 views of the lumbar spine were acquired. COMPARISON: [place], [place], [place] BONE SCAN WHOLE BODY, 09/08/2021, 14:06. FINDINGS: Bones: 5 [id number] vertebrae are present. There is grade 1 anterolisthesis of L4 on L5 secondary to facet hypertrophy. No vertebral body compression fractures. No suspicious bony lesions. Multilevel disc space narrowing and degenerative endplate changes are seen as well as multilevel facet hypertrophy. Soft tissues: Overlying bowel gas pattern is normal. Calcifications in the right upper quadrant of the abdomen are most likely gallstones. IMPRESSION: 1. No focal osseous lesion is seen. If there is continued clinical concern, recommend MRI for further evaluation. 2. Multilevel spondylosis. 3. Cholelithiasis. Dictated by: Jose Benites M.D. on 10/23/2021 at 17:03 Approved by: Jose Benites M.D. on 10/23/2021 at 17:04
== END ==
PROVIDERS: PCP Family Medicine; Referring Provider Urology; Visit Provider Urology
DX: C61 Malignant neoplasm of prostate (principal); M51.34 Other intervertebral disc degeneration, thoracic region; M47.812 Spondylosis without myelopathy or radiculopathy, cervical region; M47.816 Spondylosis without myelopathy or radiculopathy, lumbar region; K80.20 Calculus of gallbladder without cholecystitis without obstruction; R97.20 Elevated prostate specific antigen [PSA]; M81.8 Other osteoporosis without current pathological fracture; R41.3 Other amnesia; R39.9 Unspecified symptoms and signs involving the genitourinary system; R33.9 Retention of urine, unspecified; Z95.1 Presence of aortocoronary bypass graft
CPT/HCPCS: 71120; 72040; 72070; 72100; 99214

== ENCOUNTER 2021-10-31 21:05 | Emergency (ER) | payer OTHER, SELFPAY ==
[2021-10-31 21:10] VITALS: BP 211/98; PULSE 82; RESP 20; TEMP 36.1; O2SAT 96; BMI 24.4
--- NOTE | 2021-10-31 22:12 | PC.NURSE ---
Patient has had an indwelling catheter for 2 months with 3 to 4 failed attempts to successfully remove it and have patient void independently. The recent attempt was at 1530 today. Patient appears in great discomfort.
--- NOTE | 2021-10-31 22:38 | ED.MALEGU ---
HPI - Male Genitourinary General Chief complaint: Urogenital-Male Stated complaint: unable to urinate, removed catheter today Time Seen by Provider: 10/31/21 22:32 Source: patient and family Mode of arrival: Ambulatory History of Present Illness HPI Narrative: 86M non smoker with a history of prostate cancer presents with family and the chief complaint of lower abdominal pain and inability to urinate over the course of the day. He has had recent issues with urinary retention and actually had a Mack catheter removed in the office earlier today. He denies any fever chills. He is not dizzy nor weak or lightheaded. He has had no nausea or vomiting Related Data Home Medications Medication Instructions Recorded Confirmed ASPIRIN (#ASPIRIN) 81 mg PO QDAY #0 08/22/11 10/23/21 calcium carbonate 200 mg calcium 200 mg PO TID 10/05/21 10/23/21 (500 mg) chewable tablet (Tums) Previous Rx's Medication Instructions Recorded ondansetron 4 mg disintegrating 4 mg SUBLINGUAL Q6HP PRN #10 odt 09/27/17 tablet (Zofran ODT) lisinopril 10 mg tablet See Rx Instructions .ROUTE 06/06/21 .COMPLEX #180 tab bicalutamide 50 mg tablet (Casodex) 50 mg PO DAILY #30 tab 08/30/21 simvastatin 40 mg tablet See Rx Instructions .ROUTE 09/28/21 .COMPLEX #90 tab tamsulosin 0.4 mg capsule 0.8 mg PO DAILY #60 cap 09/29/21 cholecalciferol (vitamin D3) 1,250 1,250 mcg PO QWEEK #8 cap 10/05/21 mcg (50,000 unit) capsule Allergies Allergy/AdvReac Type Severity Reaction Status Date / Time ciprofloxacin Allergy Unknown DIZZY/LIGHT Verified 10/23/21 13:48 HEADED/CONF USION/AGITA TION Sulfa (Sulfonamide Allergy Unknown Verified 10/23/21 13:48 Antibiotics) Review of Systems Review of Systems Narrative: GENERAL: Denies chills, fatigue, malaise, fever, sweats. HEENT: Denies sinus pain, ear pain, sore throat, difficulty swallowing, dizziness. RESPIRATORY: Denies dyspnea, cough, wheezing, hemoptysis, sputum. CARDIOVASCULAR: Denies chest pain, palpitations, orthopnea, edema, GASTROINTESTINAL: See HPI : See HPI MUSCULOSKELETAL: denies weakness, joint pain, or bony pain SKIN: Denies rash, skin lesions, or other NEUROLOGIC: Denies weakness, headache, numbness, change in speech, confusion, seizures, incoordination. PSYCHIATRIC: No concerning psychosocial issues. 12 point review of systems is negative except for those stated above Patient History Medical History Asthma Coronary artery disease Depression Elevated PSA Excessive cerumen in both ear canals Hyperlipidemia Hypertension Lower urinary tract symptoms (LUTS) Osteoporosis Prostate cancer Screen for colon cancer Surgical History History of colon polyps (~2007) S/P CABG x 3 (~2006) Family History Father Stroke Social History marital status: number of children: 3 Previous occupational history: retired [employer] Smoking Status: Never smoker Smoking Status: Never smoker Substance Use Type: does not use Exam Narrative Exam Narrative: GEN: AOx3 and in mild distress EYES: Pupils are equal, round, and reactive to light and accommodation. Extraoccular muscles are intact bilaterally. There is no subconjunctival hemorrhage or exudate. CHEST: Lungs are clear to auscultation bilaterally and free of wheezes, rales, or rhonchi. Heart rate is regular rhythm, there are no murmurs, clicks, rubs, or gallops. There is no chest wall tenderness. ABD: Abdomen is soft and minimally tender over the bladder. There is no guarding or rebound. Bowel sounds are normal in all 4 quadrants. There is no mass or organomegaly. EXT: Full painless ROM of all extremities with no loss of sensation or strength. SKIN: Warm, pink, and dry. No erythema or rash Initial Vital Signs Initial Vital Signs: Vital Signs Temperature 97 F L 10/31/21 21:10 Pulse Rate 82 10/31/21 21:10 Respiratory Rate 20 10/31/21 21:10 Blood Pressure 211/98 H 10/31/21 21:10 Pulse Oximetry 96 10/31/21 21:10 Course Course Course Narrative: Mack catheter placed by nursing and patient has a newer immediate and complete relief Orders Ordered: ED Orders 10/31/21 22:57 Urine Microscopic Stat Vital Signs Vital signs: Vital Signs - 8 hr 10/31/21 21:10 Temperature 97 F L Pulse Rate 82 Respiratory Rate 20 Blood Pressure 211/98 H Pulse Oximetry 96 MDM - Male Genitourinary Lab Data Labs: Lab Results 10/31/21 Range/Units 22:45 Urine RBC 1-5/hpf (0-5/HPF) Urine WBC None seen (0-5/HPF) Urine Bacteria None seen (None) Ur Culture Indicated? Cult not indicated Urine Dip Bedside Urine Glucose Negative Bedside Urine Bilirubin - Negative Bedside Urine Ketone - Negative Urine Specific [place] 1.020 Bedside Urine Occult Blood +/- Bedside Urine pH 6.0 Bedside Urine Protein - Negative Bedside Urine Urobilinogen - Negative Bedside Urine Nitrite - Negative Bedside Urine Leukocytes - Negative Esterase Discharge Plan Departure Patient Disposition: Home Clinical Impression: Acute urinary retention Instructions: DI for Urinary Retention in Men Activity Restrictions/Additional Instructions: *You have been diagnosed with [urinary retention ] *What to do: *Please continue to take your regular medications as directed. [ ] New medication prescriptions sent to your pharmacy: [ ] [ ] New medication written as a paper prescription [ ] No new medications given *Please follow up with your primary care provider in 2-3 days, call for an appointment. Let them know you were seen in the Emergency Department and that we ask that you be seen in follow up. We will electronically transmit a record of today's note if your PCP is in our system *If you do not have a primary care provider please contact the [facility] Resource line at [phone]. They will ask some questions about your medical history and help get you set up with a doctor in the community. *Return to Emergency Department if you should have any new, worsening or concerning symptoms, such as [fever greater than 101 F, shaking chills, worsening pain, persistent vomiting or other bothersome symptoms] Prescriptions: No Action ASPIRIN (#ASPIRIN) 81 mg PO QDAY Qty: 0 0RF ondansetron [Zofran ODT] 4 MG tablet,disintegrating 4 mg Sublingual Q6HP PRNQty: 10 0RF simvastatin 40 mg tablet See Rx Instructions .ROUTE .COMPLEX Qty: 90 2RF Dose Instruction: TAKE 1 TABLET BY MOUTH AT BEDTIME Rx Instructions: TAKE 1 TABLET BY MOUTH AT BEDTIME cholecalciferol (vitamin D3) 1,250 mcg (50,000 unit) capsule 1,250 mcg PO QWEEK Qty: 8 0RF lisinopril 10 mg tablet See Rx Instructions .ROUTE .COMPLEX Qty: 180 1RF Dose Instruction: TAKE 2 TABLETS BY MOUTH EVERY DAY Rx Instructions: TAKE 2 TABLETS BY MOUTH EVERY DAY bicalutamide [Casodex] 50 mg tablet 50 mg PO DAILY Qty: 30 0RF tamsulosin 0.4 mg capsule 0.8 mg PO DAILY Qty: 60 12RF calcium carbonate [Tums] 200 mg calcium (500 mg) tablet,chewable 200 mg PO TID 0RF Referrals: Alex Walker MD [Physician] - Abraham Melton DO [Primary Care Provider] -
[2021-10-31 23:13] VITALS: BP 153/76; PULSE 66; RESP 14; O2SAT 94
[2021-10-31 23:16] LABS: Bacteria Urine None Seen; Culture Indicated Urine Cult Not Indicated; RBC Urine 1-5/HPF (0-5/HPF); WBC Urine None Seen (0-5/HPF)
== END 2021-10-31 23:14 | disposition home or self-care (01) ==
PROVIDERS: Emergency Provider Emergency Medicine; PCP Family Medicine
DX: R33.9 Retention of urine, unspecified (principal)
CPT/HCPCS: 51702; 51798; 81003; 81015; 99283

== ENCOUNTER 2021-11-20 08:39 | Emergency (ER) | payer OTHER, SELFPAY ==
[2021-11-20] VITALS (14 sets, daily range): BP systolic 70–127; BP diastolic 50–69; PULSE 67–80; RESP 0–18; TEMP 36.1; O2SAT 92–99; BMI 27.8
--- NOTE | 2021-11-20 08:47 | ED.GENADULT ---
HPI - General Adult General Chief complaint: Syncope Stated complaint: from urology, Became unresponsive, dizzy Time Seen by Provider: 11/20/21 08:40 Source: patient Mode of arrival: Wheelchair Limitations: no limitations History of Present Illness HPI narrative: Patient is an 86-year-old male. He is here with family. He was sent over from the urology clinic. Per report the patient was being seen in the urology clinic to have a Mack catheter removed that was placed because of urinary retention. Is reported by family that as the catheter is being removed he became unresponsive. Was diaphoretic. Unsure as to how long the situation lasted however family at bedside reports that he is not quite back to baseline but is ?getting better ?the patient does have a history of dementia and is hard of hearing although at baseline does not very often knows where he is and what year it is. Patient states he states that he feels ?better ?he denied any chest pain. No shortness of breath. No headache. He is unsure exactly what happened to him prior to arrival. There is no reports of trauma. Related Data Home Medications Medication Instructions Recorded Confirmed ASPIRIN (#ASPIRIN) 81 mg PO QDAY #0 08/22/11 10/23/21 calcium carbonate 200 mg calcium 200 mg PO TID 10/05/21 10/23/21 (500 mg) chewable tablet (Tums) Previous Rx's Medication Instructions Recorded ondansetron 4 mg disintegrating 4 mg SUBLINGUAL Q6HP PRN #10 odt 09/27/17 tablet (Zofran ODT) lisinopril 10 mg tablet See Rx Instructions .ROUTE 06/06/21 .COMPLEX #180 tab bicalutamide 50 mg tablet (Casodex) 50 mg PO DAILY #30 tab 08/30/21 simvastatin 40 mg tablet See Rx Instructions .ROUTE 09/28/21 .COMPLEX #90 tab tamsulosin 0.4 mg capsule 0.8 mg PO DAILY #60 cap 09/29/21 cholecalciferol (vitamin D3) 1,250 1,250 mcg PO QWEEK #8 cap 10/05/21 mcg (50,000 unit) capsule Allergies Allergy/AdvReac Type Severity Reaction Status Date / Time ciprofloxacin Allergy Unknown DIZZY/LIGHT Verified 11/20/21 08:55 HEADED/CONF USION/AGITA TION Sulfa (Sulfonamide Allergy Unknown Verified 11/20/21 08:55 Antibiotics) Review of Systems Review of Systems ROS Unobtainable: All systems reviewed & are unremarkable except as noted in HPI and below Patient History Medical History Asthma Coronary artery disease Depression Elevated PSA Excessive cerumen in both ear canals Hyperlipidemia Hypertension Lower urinary tract symptoms (LUTS) Osteoporosis Prostate cancer Screen for colon cancer Surgical History History of colon polyps (~2007) S/P CABG x 3 (~2006) Family History Father Stroke Social History marital status: number of children: 3 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 Smoking Status: Never smoker Smoking Status: Never smoker Substance Use Type: does not use Exam Initial Vital Signs Initial Vital Signs: Vital Signs Temperature 96.9 F L 11/20/21 08:41 Pulse Rate 72 11/20/21 08:41 Respiratory Rate 15 11/20/21 08:41 Blood Pressure 113/63 11/20/21 08:41 Pulse Oximetry 94 11/20/21 08:41 Const Other: Somewhat diaphoretic HENMT Head: normal to inspection and normocephalic Resp Effort & Inspection: normal respiratory effort Auscultation: clear to auscultation bilaterally Cardio Rate: regular rate Rhythm: regular rhythm GI Inspection: normal to inspection Palpation: soft and No tender Skin Other: Cool and clammy no lesions Neuro General: patient alert, patient awake and moves all extremities Extrem General: normal to inspection and capillary refill normal Psych Appearance: grossly normal and well kempt Course Orders Ordered: ED Orders 11/20/21 08:50 Basic Metabolic Panel Stat Complete Blood Count AUTO DIFF Stat 11/20/21 08:55 EKG-12 Lead Stat Sodium Chloride (Normal Saline 0.9%) 1,000 mls @ 500 mls/hr IV BOLUS ONE Stop: 11/20/21 11:03 Last Infusion: 11/20/21 10:20 Dose: 0 mls/hr Documented by: Admin: 11/20/21 09:07 Dose: 500 mls/hr Documented by: DONITA Vital Signs Vital signs: Vital Signs - 8 hr 11/20/21 08:41 Temperature 96.9 F L Pulse Rate 72 Respiratory Rate 15 Blood Pressure 113/63 Pulse Oximetry 94 Medical Decision Making Lab Data Result diagrams: 11/20/21 08:50 11/20/21 08:50 Labs: Lab Results 11/20/21 11/20/21 Range/Units 08:50 08:50 WBC 10.6 (4.5-11.0) X10^3/uL RBC 4.54 (4.5-5.9) X10^6/uL Hgb 13.9 (13.5-17.5) g/dL Hct 40.9 L (41-53) % MCV 90.0 (80-100) fL MCH 30.5 (26-34) PG MCHC 33.9 (30-36) % RDW 13.0 (11.6-14.8) % Plt Count 251 (150-400) X10^3/uL Neut % (Auto) 76.1 H (50-75) % Lymph % (Auto) 12.7 L (25-40) % Lane % (Auto) 7.5 (3-14) % Eos % (Auto) 3.3 (2-4) % Baso % (Auto) 0.4 (0-2) % Neut # (Auto) 8100 H (1675-7497) /uL Lymph # (Auto) 1300 (5432-7581) /uL Lane # (Auto) 800 (0-900) /uL Eos # (Auto) 400 (0-450) /uL Baso # (Auto) 0 (0-100) /uL Sodium 140 (137-145) mmol/L Potassium 4.2 (3.4-5.1) mmol/L Chloride 107 (98-107) mmol/L Carbon Dioxide 24 (22-32) mmol/L BUN 24 H (9-20) mg/dL Creatinine 0.91 (0.66-1.25) mg/dL Estimated GFR > 60.0 (>60) mL/min BUN/Creatinine Ratio 26.4 H (6-22) Glucose 125 H (80-110) mg/dL Calcium 9.2 (8.4-10.2) mg/dL ECG Data Attestation: I personally reviewed and interpreted this ECG as follows: Prior ECG tracings: available for review Interpretation: Sinus rhythm Ventricular rate of 79 Normal axis Occasional PACs Normal QRS Normal QTC Incomplete right bundle branch block LVH Nonspecific ST T wave changes MDM Narrative Medical decision making narrative: Patient is at baseline per family members who are at bedside. Patient was able to get up and walk around the emergency department without issue. Labs are unremarkable. He did have some episodes of systolic blood pressures in the 70s to 90s however his mean arterial pressure was in the mid 60s and the patient was asymptomatic at the time. The event that brought him to the emergency department occurred while he was having a Mack catheter removed. I suspect that this was a vagal reaction although I cannot be 100% sure this however there is no other signs of CVA/TIA or cardiovascular etiology. I did discuss this with the patient and family. They are going to follow all of the instructions given to them by the urologist with regard to follow-up. There were given return precautions. They both expressed understanding and agreement. Discharge Plan Departure Patient Disposition: Home Clinical Impression: Pre-syncope Instructions: Fainting Activity Restrictions/Additional Instructions: I do recommend that you follow all of the instructions given to you by the urologist with regard to follow-up later today. Continue to take all of your medications as directed. Return to the emergency department for any new or worsening symptoms. Prescriptions: No Action ASPIRIN (#ASPIRIN) 81 mg PO QDAY Qty: 0 0RF ondansetron [Zofran ODT] 4 MG tablet,disintegrating 4 mg Sublingual Q6HP PRNQty: 10 0RF simvastatin 40 mg tablet See Rx Instructions .ROUTE .COMPLEX Qty: 90 2RF Dose Instruction: TAKE 1 TABLET BY MOUTH AT BEDTIME Rx Instructions: TAKE 1 TABLET BY MOUTH AT BEDTIME cholecalciferol (vitamin D3) 1,250 mcg (50,000 unit) capsule 1,250 mcg PO QWEEK Qty: 8 0RF lisinopril 10 mg tablet See Rx Instructions .ROUTE .COMPLEX Qty: 180 1RF Dose Instruction: TAKE 2 TABLETS BY MOUTH EVERY DAY Rx Instructions: TAKE 2 TABLETS BY MOUTH EVERY DAY bicalutamide [Casodex] 50 mg tablet 50 mg PO DAILY Qty: 30 0RF tamsulosin 0.4 mg capsule 0.8 mg PO DAILY Qty: 60 12RF calcium carbonate [Tums] 200 mg calcium (500 mg) tablet,chewable 200 mg PO TID 0RF Referrals: Abraham Melton DO [Primary Care Provider] -
[2021-11-20 09:02] LABS: Add Manual Diff / Slide Review NO; Basophils Absolute Auto 0 /uL (0-100); Basophils Percent Auto 0.4 % (0-2); Eosinophils Absolute Auto 400 /uL (0-450); Eosinophils Percent Auto 3.3 % (2-4); Hematocrit 40.9 % (41-53); Hemoglobin 13.9 g/dL (13.5-17.5); Lymphocytes Absolute Auto 1300 /uL (1100-4500); Lymphocytes Percent Auto 12.7 % (25-40); Mean Corpuscular HGB Conc 33.9 % (30-36); Mean Corpuscular Hemoglobin 30.5 PG (26-34); Monocytes Absolute Auto 800 /uL (0-900); Monocytes Percent Auto 7.5 % (3-14); Neutrophils Absolute Auto 8100 /uL (1500-7000); Neutrophils Percent Auto 76.1 % (50-75); Platelet Count 251 X10^3/uL (150-400); Red Blood Cell Count 4.54 X10^6/uL (4.5-5.9); White Blood Cell Count 10.6 X10^3/uL (4.5-11.0)
[2021-11-20] MEDS: SODIUM CHLORIDE 0.9% 1,000 ML 500 ML IV (09:07)
[2021-11-20 10:05] LABS: BUN Creatinine Ratio 26.4 (6-22); Blood Urea Nitrogen 24 mg/dL (9-20); Calcium 9.2 mg/dL (8.4-10.2); Carbon Dioxide 24 mmol/L (22-32); Chloride 107 mmol/L (98-107); Estimated Glomerular Filt Rate > 60.0 mL/min (>60); Glucose 125 mg/dL (80-110); HEMOLYSIS < 15 (0-50); Potassium 4.2 mmol/L (3.4-5.1); Sodium 140 mmol/L (137-145)
== END 2021-11-20 10:41 | disposition home or self-care (01) ==
PROVIDERS: Emergency Provider Emergency Medicine; PCP Family Medicine
DX: R55 Syncope and collapse (principal); R03.1 Nonspecific low blood-pressure reading; R33.8 Other retention of urine
CPT/HCPCS: 36415; 51701; 51798; 80048; 81002; 85025; 93005; 99284

== ENCOUNTER → 2021-11-21 08:13 | Outpatient (CLI) | payer OTHER, SELFPAY | PROVIDERS: PCP Family Medicine; Visit Provider Urology | DX: R30.0 Dysuria (principal); R33.9 Retention of urine, unspecified | CPT/HCPCS: 51798; 87077; 87086; 87147; 87186 ==

== ENCOUNTER 2021-11-25 18:24 | Emergency (ER) | payer OTHER, SELFPAY ==
[2021-11-25 18:32] VITALS: BP 181/88; PULSE 75; RESP 18; TEMP 37; O2SAT 98
--- NOTE | 2021-11-25 18:46 | ED_ITS ---
HPI - Male Genitourinary <Ania Schroeder, [facility] - Last Filed: 11/27/21 13:43> General Chief complaint: Urogenital-Male Stated complaint: Needs Cath Time Seen by Provider: 11/25/21 18:28 Mode of arrival: Family Vehicle History of Present Illness HPI Narrative: This is an 86-year-old male with dementia, enlarged prostate, and history of ur inary retention with recent Mack catheter removed 5 days ago. Patient is complaining of pelvic pressure and symptoms related to bladder fullness. Patient tried to void once this morning, and only dribbled small amount of urine. Patient's son is here with him, he denies any blood in his urine, pa tient is otherwise at baseline for himself without any mental status changes, fever, abdominal pain, vomiting, or other concern. Patient was seen in the emergency department on 11/20/21 for a near syncopal event when patient was at urology clinic having his urinary catheter removed. It was presumed that patient had a vasovagal response. Patient's son states that he has not had any new mental status changes or behaviors, today he was complaining about pelvic pressure, and he watched him attempt to void and patient was unable to empty his bladder. Related Data Home Medications Medication Instructions Recorded Confirmed ASPIRIN (#ASPIRIN) 81 mg PO QDAY #0 08/22/11 10/23/21 calcium carbonate 200 mg calcium 200 mg PO TID 10/05/21 10/23/21 (500 mg) chewable tablet (Tums) Previous Rx's Medication Instructions Recorded ondansetron 4 mg disintegrating 4 mg SUBLINGUAL Q6HP PRN #10 odt 09/27/17 tablet (Zofran ODT) lisinopril 10 mg tablet See Rx Instructions .ROUTE 06/06/21 .COMPLEX #180 tab bicalutamide 50 mg tablet (Casodex) 50 mg PO DAILY #30 tab 08/30/21 simvastatin 40 mg tablet See Rx Instructions .ROUTE 09/28/21 .COMPLEX #90 tab tamsulosin 0.4 mg capsule 0.8 mg PO DAILY #60 cap 09/29/21 cholecalciferol (vitamin D3) 1,250 1,250 mcg PO QWEEK #8 cap 10/05/21 mcg (50,000 unit) capsule doxycycline monohydrate 100 mg 100 mg PO BID #20 tab 04/01/22 tablet Allergies Allergy/AdvReac Type Severity Reaction Status Date / Time ciprofloxacin Allergy Unknown DIZZY/LIGHT Verified 11/25/21 18:34 HEADED/CONF USION/AGITA TION Sulfa (Sulfonamide Allergy Unknown Verified 11/25/21 18:34 Antibiotics) Review of Systems <REVA Stanton - Last Filed: 11/27/21 13:43> Review of Systems Narrative: General: denies fever, chills Head/Neck: denies headache, neck pain Eyes: denies visual changes, eye pain Cardio: denies chest pain, palpitations Respiratory: denies shortness of breath, cough GI: denies abdominal pain, nausea, vomiting, or diarrhea, endorses pelvic pressure : denies dysuria, hematuria, penile discharge, states void was only a small dribble of urine without blood MSK: denies joint pain, muscle weakness Skin: denies rash, itching Neuro: denies numbness, tingling Patient History <REVA Stanton - Last Filed: 11/27/21 13:43> Medical History Asthma Coronary artery disease Depression Elevated PSA Excessive cerumen in both ear canals Hyperlipidemia Hypertension Lower urinary tract symptoms (LUTS) Osteoporosis Prostate cancer Screen for colon cancer Surgical History History of colon polyps (~2007) S/P CABG x 3 (~2006) Family History Father Stroke Social History marital status: number of children: 3 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 Status: Never smoker Smoking Status: Never smoker Substance Use Type: does not use Exam <REVA Stanton - Last Filed: 11/27/21 13:43> Narrative Exam Narrative: Independently reviewed vitals signs and nursing notes. General: Awake, alert, nontoxic, no cardiorespiratory distress Head/Neck: Atraumatic, neck full range of motion Eyes: EOMI, conjunctiva normal Nose: nares patent, no rhinorrhea Mouth/Throat: moist mucus membranes, no oral lesions Cardio: Regular rate and rhythm, no peripheral edema Respiratory: respirations unlabored without wheezing, stridor, or rales. No retractions. GI: Abdomen soft, non-tender, bladder pressure with palpation, visibly distended, no rash, bladder scan shows over 875 mL of urine in his bladder. Mack catheter placed by ER nurse, patient tolerated well, over 100 mL of urine draining, clear yellow MSK: Moves all extremities, neurovascularly intact Skin: Normal capillary refill, no rash Neuro: Normal speech and cognition, normal gait Initial Vital Signs Initial Vital Signs: Vital Signs Temperature 98.6 F 11/25/21 18:32 Pulse Rate 75 11/25/21 18:32 Respiratory Rate 18 11/25/21 18:32 Blood Pressure 181/88 H 11/25/21 18:32 Pulse Oximetry 98 11/25/21 18:32 <Marcela Gunter DO - Last Filed: 11/25/21 21:24> Initial Vital Signs Initial Vital Signs: Vital Signs Temperature 98.6 F 11/25/21 18:32 Pulse Rate 75 11/25/21 18:32 Respiratory Rate 18 11/25/21 18:32 Blood Pressure 181/88 H 11/25/21 18:32 Pulse Oximetry 98 11/25/21 18:32 Course <REVA Stanton - Last Filed: 11/27/21 13:43> Orders Ordered: Discontinued Medications Ceftriaxone Sodium 1,000 mg/ (Sodium Chloride) 100 mls @ 200 mls/hr IV NOW ONE Stop: 11/25/21 19:27 Last Admin: 11/25/21 19:39 Dose: Not Given Documented by: MACRINA Ceftriaxone Sodium 1,000 mg/ (Sodium Chloride) 100 mls @ 200 mls/hr IV NOW ONE Stop: 11/25/21 19:27 Last Infusion: 11/25/21 20:47 Dose: 0 mls/hr Documented by: Admin: 11/25/21 20:09 Dose: 200 mls/hr Documented by: MACRINA Lidocaine HCl (Lidocaine 2% (Glydo) 6 Ml Gel) 6 ml TOP NOW ONE Stop: 11/25/21 18:45 Last Admin: 11/25/21 18:57 Dose: Not Given Documented by: EDY Vital Signs Vital signs: Vital Signs - 8 hr 11/25/21 18:32 11/25/21 20:48 Temperature 98.6 F Pulse Rate 75 71 Respiratory Rate 18 18 Blood Pressure 181/88 H 177/95 H Pulse Oximetry 98 97 <Marcela Gunter DO - Last Filed: 11/25/21 21:24> Orders Ordered: Discontinued Medications Ceftriaxone Sodium 1,000 mg/ (Sodium Chloride) 100 mls @ 200 mls/hr IV NOW ONE Stop: 11/25/21 19:27 Last Admin: 11/25/21 19:39 Dose: Not Given Documented by: MACRINA Ceftriaxone Sodium 1,000 mg/ (Sodium Chloride) 100 mls @ 200 mls/hr IV NOW ONE Stop: 11/25/21 19:27 Last Infusion: 11/25/21 20:47 Dose: 0 mls/hr Documented by: Admin: 11/25/21 20:09 Dose: 200 mls/hr Documented by: MACRINA Lidocaine HCl (Lidocaine 2% (Glydo) 6 Ml Gel) 6 ml TOP NOW ONE Stop: 11/25/21 18:45 Last Admin: 11/25/21 18:57 Dose: Not Given Documented by: EDY Vital Signs Vital signs: Vital Signs - 8 hr 11/25/21 18:32 11/25/21 20:48 Temperature 98.6 F Pulse Rate 75 71 Respiratory Rate 18 18 Blood Pressure 181/88 H 177/95 H Pulse Oximetry 98 97 MDM - Male Genitourinary <REVA Stanton - Last Filed: 11/27/21 13:43> Lab Data Result diagrams: 11/25/21 19:40 11/25/21 19:40 Labs: Lab Results 11/25/21 11/25/21 11/25/21 Range/Units 18:59 19:40 19:40 WBC 8.6 (4.5-11.0) X10^3/uL RBC 4.74 (4.5-5.9) X10^6/uL Hgb 14.5 (13.5-17.5) g/dL Hct 42.5 (41-53) % MCV 89.7 (80-100) fL MCH 30.6 (26-34) PG MCHC 34.1 (30-36) % RDW 13.2 (11.6-14.8) % Plt Count 241 (150-400) X10^3/uL Neut % (Auto) 67.8 (50-75) % Lymph % (Auto) 18.3 L (25-40) % [place] % (Auto) 9.4 (3-14) % Eos % (Auto) 3.6 (2-4) % Baso % (Auto) 0.9 (0-2) % Neut # (Auto) 5900 (8360-9139) /uL Lymph # (Auto) 1600 (0036-8254) /uL [place] # (Auto) 800 (0-900) /uL Eos # (Auto) 300 (0-450) /uL Baso # (Auto) 100 (0-100) /uL Sodium 138 (137-145) mmol/L Potassium 5.1 (3.4-5.1) mmol/L Chloride 104 (98-107) mmol/L Carbon Dioxide 26 (22-32) mmol/L BUN 22 H (9-20) mg/dL Creatinine 0.84 (0.66-1.25) mg/dL Estimated GFR > 60.0 (>60) mL/min BUN/Creatinine Ratio 26.2 H (6-22) Glucose 101 (80-110) mg/dL Lactate (0.7-2.1) mmol/L Calcium 9.3 (8.4-10.2) mg/dL Total Bilirubin 1.5 H (0.2-1.3) mg/dL AST 35 (17-59) IU/L ALT 47 (<50) IU/L Alkaline Phosphatase 83 (38-126) U/L Total Protein 7.9 (6.3-8.2) g/dL Albumin 4.3 (3.5-5.0) g/dL Globulin 3.6 (1.7-4.1) g/dL Albumin/Globulin Ratio 1.2 (1.0-2.8) Procalcitonin 0.05 (<0.5) ng/mL Urine Color Yellow Urine Appearance Sl cloudy Urine pH 5.0 (4.5-8.0) Ur Specific [place] 1.020 (1.000-1.035) Urine Protein Negative (Negative) Urine Glucose (UA) Negative (Negative) g/dL Urine Ketones Negative (NEGATIVE) Urine Occult Blood 2+ H (Negative) Urine Nitrate Positive H (Negative) Urine Bilirubin Negative (NEGATIVE) Urine Urobilinogen 0.2 (0.2) E.U./dL Ur Leukocyte Esterase 2+ H (NEGATIVE) Urine RBC 5-10/hpf H (0-5/HPF) Urine WBC 30-100/hpf H (0-5/HPF) Ur Squamous Epith Cells 0-1 /hpf (0-5/HPF) Urine Bacteria Few (2-10) H (None) Ur Culture Indicated? Specimen cultured 11/25/21 Range/Units 19:40 WBC (4.5-11.0) X10^3/uL RBC (4.5-5.9) X10^6/uL Hgb (13.5-17.5) g/dL Hct (41-53) % MCV (80-100) fL MCH (26-34) PG MCHC (30-36) % RDW (11.6-14.8) % Plt Count (150-400) X10^3/uL Neut % (Auto) (50-75) % Lymph % (Auto) (25-40) % [place] % (Auto) (3-14) % Eos % (Auto) (2-4) % Baso % (Auto) (0-2) % Neut # (Auto) (7686-8186) /uL Lymph # (Auto) (9956-4560) /uL [place] # (Auto) (0-900) /uL Eos # (Auto) (0-450) /uL Baso # (Auto) (0-100) /uL Sodium (137-145) mmol/L Potassium (3.4-5.1) mmol/L Chloride (98-107) mmol/L Carbon Dioxide (22-32) mmol/L BUN (9-20) mg/dL Creatinine (0.66-1.25) mg/dL Estimated GFR (>60) mL/min BUN/Creatinine Ratio (6-22) Glucose (80-110) mg/dL Lactate 1.3 (0.7-2.1) mmol/L Calcium (8.4-10.2) mg/dL Total Bilirubin (0.2-1.3) mg/dL AST (17-59) IU/L ALT (<50) IU/L Alkaline Phosphatase (38-126) U/L Total Protein (6.3-8.2) g/dL Albumin (3.5-5.0) g/dL Globulin (1.7-4.1) g/dL Albumin/Globulin Ratio (1.0-2.8) Procalcitonin (<0.5) ng/mL Urine Color Urine Appearance Urine pH (4.5-8.0) Ur Specific [place] (1.000-1.035) Urine Protein (Negative) Urine Glucose (UA) (Negative) g/dL Urine Ketones (NEGATIVE) Urine Occult Blood (Negative) Urine Nitrate (Negative) Urine Bilirubin (NEGATIVE) Urine Urobilinogen (0.2) E.U./dL Ur Leukocyte Esterase (NEGATIVE) Urine RBC (0-5/HPF) Urine WBC (0-5/HPF) Ur Squamous Epith Cells (0-5/HPF) Urine Bacteria (None) Ur Culture Indicated? MDM Narrative Medical decision making narrative: This is an 86-year-old male, urinary retention, dementia who presents to the emergency department with acute urinary retention with over 875 mL of urine in his bladder. Patient's Mack catheter is removed 5 days ago at Urology. Patient was seen in the emergency department afterwards for a presumed vasovagal reaction. Patient's son states that patient is still on Flomax daily. Patient has not had any mental status changes over the last week. On chart review it appears that patient had a positive urine culture from 11/21/2021 which grew out staphylococcus lugdunesis with susceptibilities to all antibiotics listed. UA today shows 2+ blood, positive nitrates, 2+ leukocyte esterase with white blood cells, red blood cells and few bacteria on the microscopy. Specimen was cultured. Patient did not have nitrates present on his previous urine tests. Blood cultures drawn, lab work obtained and is pending. On discussing this result with patient's son, patient's son states that he started antibiotics yesterday because urology clinic called him about this urine culture. On chart review it appears that patient was prescribed a 10 day course of doxycycline for Staphylococcus lugdunesis. Patient was given 1 g of ceftriaxone in the emergency department. Patient was signed out to Dr. Marcela Gunter. A Mack catheter, 16 [place] was placed without difficulty, patient tolerated well, patient was given a referral to Dr. Walker his urologist for follow-up. Patient and his son understand to follow up with Urology next week. Patient is appropriate and amenable to discharge home. Vital signs are stable on repeat examination is unremarkable. Patient has been informed of results. Patient has been given strict return to ER precautions for any new or worsening symptoms. Patient understands to follow up closely with outpatient providers as instructed. Patient understands plan and agrees to discharge home. All questions and concerns answered at this time. <Marcela Gunter, DO - Last Filed: 11/25/21 21:24> Lab Data Labs: Lab Results 11/25/21 11/25/21 11/25/21 Range/Units 18:59 19:40 19:40 WBC 8.6 (4.5-11.0) X10^3/uL RBC 4.74 (4.5-5.9) X10^6/uL Hgb 14.5 (13.5-17.5) g/dL Hct 42.5 (41-53) % MCV 89.7 (80-100) fL MCH 30.6 (26-34) PG MCHC 34.1 (30-36) % RDW 13.2 (11.6-14.8) % Plt Count 241 (150-400) X10^3/uL Neut % (Auto) 67.8 (50-75) % Lymph % (Auto) 18.3 L (25-40) % [place] % (Auto) 9.4 (3-14) % Eos % (Auto) 3.6 (2-4) % Baso % (Auto) 0.9 (0-2) % Neut # (Auto) 5900 (9086-9555) /uL Lymph # (Auto) 1600 (7041-0502) /uL [place] # (Auto) 800 (0-900) /uL Eos # (Auto) 300 (0-450) /uL Baso # (Auto) 100 (0-100) /uL Sodium 138 (137-145) mmol/L Potassium 5.1 (3.4-5.1) mmol/L Chloride 104 (98-107) mmol/L Carbon Dioxide 26 (22-32) mmol/L BUN 22 H (9-20) mg/dL Creatinine 0.84 (0.66-1.25) mg/dL Estimated GFR > 60.0 (>60) mL/min BUN/Creatinine Ratio 26.2 H (6-22) Glucose 101 (80-110) mg/dL Lactate (0.7-2.1) mmol/L Calcium 9.3 (8.4-10.2) mg/dL Total Bilirubin 1.5 H (0.2-1.3) mg/dL AST 35 (17-59) IU/L ALT 47 (<50) IU/L Alkaline Phosphatase 83 (38-126) U/L Total Protein 7.9 (6.3-8.2) g/dL Albumin 4.3 (3.5-5.0) g/dL Globulin 3.6 (1.7-4.1) g/dL Albumin/Globulin Ratio 1.2 (1.0-2.8) Procalcitonin 0.05 (<0.5) ng/mL Urine Color Yellow Urine Appearance Sl cloudy Urine pH 5.0 (4.5-8.0) Ur Specific [place] 1.020 (1.000-1.035) Urine Protein Negative (Negative) Urine Glucose (UA) Negative (Negative) g/dL Urine Ketones Negative (NEGATIVE) Urine Occult Blood 2+ H (Negative) Urine Nitrate Positive H (Negative) Urine Bilirubin Negative (NEGATIVE) Urine Urobilinogen 0.2 (0.2) E.U./dL Ur Leukocyte Esterase 2+ H (NEGATIVE) Urine RBC 5-10/hpf H (0-5/HPF) Urine WBC 30-100/hpf H (0-5/HPF) Ur Squamous Epith Cells 0-1 /hpf (0-5/HPF) Urine Bacteria Few (2-10) H (None) Ur Culture Indicated? Specimen cultured 11/25/21 Range/Units 19:40 WBC (4.5-11.0) X10^3/uL RBC (4.5-5.9) X10^6/uL Hgb (13.5-17.5) g/dL Hct (41-53) % MCV (80-100) fL MCH (26-34) PG MCHC (30-36) % RDW (11.6-14.8) % Plt Count (150-400) X10^3/uL Neut % (Auto) (50-75) % Lymph % (Auto) (25-40) % [place] % (Auto) (3-14) % Eos % (Auto) (2-4) % Baso % (Auto) (0-2) % Neut # (Auto) (9805-0136) /uL Lymph # (Auto) (7563-4494) /uL [place] # (Auto) (0-900) /uL Eos # (Auto) (0-450) /uL Baso # (Auto) (0-100) /uL Sodium (137-145) mmol/L Potassium (3.4-5.1) mmol/L Chloride (98-107) mmol/L Carbon Dioxide (22-32) mmol/L BUN (9-20) mg/dL Creatinine (0.66-1.25) mg/dL Estimated GFR (>60) mL/min BUN/Creatinine Ratio (6-22) Glucose (80-110) mg/dL Lactate 1.3 (0.7-2.1) mmol/L Calcium (8.4-10.2) mg/dL Total Bilirubin (0.2-1.3) mg/dL AST (17-59) IU/L ALT (<50) IU/L Alkaline Phosphatase (38-126) U/L Total Protein (6.3-8.2) g/dL Albumin (3.5-5.0) g/dL Globulin (1.7-4.1) g/dL Albumin/Globulin Ratio (1.0-2.8) Procalcitonin (<0.5) ng/mL Urine Color Urine Appearance Urine pH (4.5-8.0) Ur Specific [place] (1.000-1.035) Urine Protein (Negative) Urine Glucose (UA) (Negative) g/dL Urine Ketones (NEGATIVE) Urine Occult Blood (Negative) Urine Nitrate (Negative) Urine Bilirubin (NEGATIVE) Urine Urobilinogen (0.2) E.U./dL Ur Leukocyte Esterase (NEGATIVE) Urine RBC (0-5/HPF) Urine WBC (0-5/HPF) Ur Squamous Epith Cells (0-5/HPF) Urine Bacteria (None) Ur Culture Indicated? MDM Narrative Medical decision making narrative: This is an 86-year-old male, urinary retention, dementia who presents to the emergency department with acute urinary retention with over 875 mL of urine in his bladder. Patient's Mack catheter is removed 5 days ago at Urology. Guzman ellsworth was seen in the emergency department afterwards for a presumed vasovagal reaction. Patient's son states that patient is still on Flomax daily. Patient has not had any mental status changes over the last week. On chart review it appears that patient had a positive urine culture from 11/21/2021 which grew out staphylococcus lugdunesis with susceptibilities to all antibiotics listed. UA today shows 2+ blood, positive nitrates, 2+ leukocyte esterase with white blood cells, red blood cells and few bacteria on the microscopy. Specimen was cultured. Patient did not have nitrates present on his previous urine tests. Blood cultures drawn, lab work obtained and is pending. On discussing this result with patient's son, patient's son states that he started antibiotics yesterday because urology clinic called him about this urine culture. On chart review it appears that patient was prescribed a 10 day course of doxycycline for Staphylococcus lugdunesis. Patient was given 1 g of ceftriaxone in the emergency department. Patient was signed out to Dr. Marcela Gunter. A Mack catheter, 16 [place] was placed without difficulty, patient tolerated well, patient was given a referral to Dr. Walker his urologist for follow-up. Patient and his son understand to follow up with Urology next week. Patient is appropriate and amenable to discharge home. Vital signs are stable on repeat examination is unremarkable. Patient has been informed of results. Patient has been given strict return to ER precautions for any new or worsening symptoms. Patient understands to follow up closely with outpatient providers as instructed. Patient understands plan and agrees to discharge home. All questi ons and concerns answered at this time. Seen and evaluated patient myself, overall he appears well. He is afebrile. However had UTI placed on doxycycline he has only had 1 dose of antibiotic. Today's UA does show nitrates which it did not previous with. Concern for possible worsening infection. With patient has had dementia and age may be difficult to tell on exam. Blood work is actually overall reassuring no leukocytosis normal lactate he is not tachycardic or hypotensive. He is given 1 dose of IV Rocephin in the ED. At this time will wait for urine culture blood cultures are also pending. He has an appointment with Urology next week. Continue doxycycline in till we have more information and return as needed. Discharge Plan Departure Patient Disposition: Home Clinical Impression: Acute urinary retention, Prostate cancer, Acute UTI Instructions: How to Care for Your Mack Catheter -- Male, DI for Urinary Retention in Men Activity Restrictions/Additional Instructions: *You have been diagnosed with UTI *What to do: At this time please continue your antibiotic if he were previously prescribed. If her antibiotic needs to be changed we will call you in 2-3 days. Please keep the catheter in till seen by Urology *Continue to take medications as directed *Follow up with your primary care provider in 2-3 days or call [phone] Follow-up with urology as scheduled for next *Return to ER if you should have increased confusion, increasing pain, blood in Mack catheter, fever or any new, worsening or concerning symptoms Prescriptions: No Action ASPIRIN (#ASPIRIN) 81 mg PO QDAY Qty: 0 0RF ondansetron [Zofran ODT] 4 MG tablet,disintegrating 4 mg Sublingual Q6HP PRNQty: 10 0RF simvastatin 40 mg tablet See Rx Instructions .ROUTE .COMPLEX Qty: 90 2RF Dose Instruction: TAKE 1 TABLET BY MOUTH AT BEDTIME Rx Instructions: TAKE 1 TABLET BY MOUTH AT BEDTIME cholecalciferol (vitamin D3) 1,250 mcg (50,000 unit) capsule 1,250 mcg PO QWEEK Qty: 8 0RF doxycycline monohydrate 100 mg tablet 100 mg PO BID Qty: 20 0RF lisinopril 10 mg tablet See Rx Instructions .ROUTE .COMPLEX Qty: 180 1RF Dose Instruction: TAKE 2 TABLETS BY MOUTH EVERY DAY Rx Instructions: TAKE 2 TABLETS BY MOUTH EVERY DAY bicalutamide [Casodex] 50 mg tablet 50 mg PO DAILY Qty: 30 0RF tamsulosin 0.4 mg capsule 0.8 mg PO DAILY Qty: 60 12RF calcium carbonate [Tums] 200 mg calcium (500 mg) tablet,chewable 200 mg PO TID 0RF Referrals: Alex Walker MD [Physician] - 5-7 days Abraham Melton DO [Primary Care Provider] - <Marcela Gunter DO - Last Filed: 11/25/21 21:24> Cosign ED Attending Edgarature Attestation: I was immediately available in the department for consultation. Documentation has been reviewed. I agree with assessment and plan.
[2021-11-25 19:15] LABS: Appearance Urine UA SL CLOUDY; Bilirubin Urine UA NEGATIVE (NEGATIVE); Color Urine UA YELLOW; Glucose Urine UA NEGATIVE (Negative); Ketones Urine UA NEGATIVE (NEGATIVE); Leukocyte Esterase Urine UA 2+ (NEGATIVE); Nitrite Urine UA POSITIVE (Negative); Occult Blood Urine UA 2+ (Negative); Protein Urine UA NEGATIVE (Negative); Urobilinogen Urine UA 0.2 E.U./dL (0.2)
[2021-11-25 19:23] LABS: Bacteria Urine Few (2-10); Culture Indicated Urine Specimen Cultured; RBC Urine 5-10/HPF (0-5/HPF); Squamous Epithelial Cell Urine 0-1 /HPF (0-5/HPF); WBC Urine 30-100/HPF (0-5/HPF)
[2021-11-25 19:55] LABS: Add Manual Diff / Slide Review NO; Basophils Absolute Auto 100 /uL (0-100); Basophils Percent Auto 0.9 % (0-2); Eosinophils Absolute Auto 300 /uL (0-450); Eosinophils Percent Auto 3.6 % (2-4); Hematocrit 42.5 % (41-53); Hemoglobin 14.5 g/dL (13.5-17.5); Lymphocytes Absolute Auto 1600 /uL (1100-4500); Lymphocytes Percent Auto 18.3 % (25-40); Mean Corpuscular HGB Conc 34.1 % (30-36); Mean Corpuscular Hemoglobin 30.6 PG (26-34); Mean Corpuscular Volume 89.7 fL (80-100); Monocytes Absolute Auto 800 /uL (0-900); Monocytes Percent Auto 9.4 % (3-14); Neutrophils Absolute Auto 5900 /uL (1500-7000); Neutrophils Percent Auto 67.8 % (50-75); Platelet Count 241 X10^3/uL (150-400); Red Blood Cell Count 4.74 X10^6/uL (4.5-5.9); Red Cell Distribution Width 13.2 % (11.6-14.8); White Blood Cell Count 8.6 X10^3/uL (4.5-11.0)
[2021-11-25] MEDS: cefTRIAXone 1,000 MG in SODIUM CHLORIDE 0.9% 100 ML 200 ML IV (20:09)
[2021-11-25 20:19] LABS: Alanine Aminotransferase 47 IU/L (<50); Albumin 4.3 g/dL (3.5-5.0); Albumin Globulin Ratio 1.2 (1.0-2.8); Alkaline Phosphatase 83 U/L (38-126); Aspartate Aminotransferase 35 IU/L (17-59); BUN Creatinine Ratio 26.2 (6-22); Bilirubin Total 1.5 mg/dL (0.2-1.3); Blood Urea Nitrogen 22 mg/dL (9-20); Calcium 9.3 mg/dL (8.4-10.2); Carbon Dioxide 26 mmol/L (22-32); Chloride 104 mmol/L (98-107); Estimated Glomerular Filt Rate > 60.0 mL/min (>60); Globulin 3.6 g/dL (1.7-4.1); Glucose 101 mg/dL (80-110); HEMOLYSIS 16 (0-50); Potassium 5.1 mmol/L (3.4-5.1); Sodium 138 mmol/L (137-145); Total Protein 7.9 g/dL (6.3-8.2)
[2021-11-25 20:20] LABS: Lactate (Lactic Acid) 1.3 mmol/L (0.7-2.1)
[2021-11-25 20:35] LABS: Procalcitonin 0.05 ng/mL (<0.5)
--- NOTE | 2021-11-25 20:47 | PC.NURSE ---
leg bag applied, and miller bag emptied of 700 ml of urine
[2021-11-25 20:48] VITALS: BP 177/95; PULSE 71; RESP 18; O2SAT 97
== END 2021-11-25 20:50 | disposition home or self-care (01) ==
PROVIDERS: Nurse Practitioner Critical Care Medicine; Emergency Provider Emergency Medicine; PCP Family Medicine
DX: R33.9 Retention of urine, unspecified (principal); C61 Malignant neoplasm of prostate; N39.0 Urinary tract infection, site not specified
CPT/HCPCS: 36415; 51702; 51798; 80053; 81001; 83605; 84145; 85025; 87040; 87077; 87086; 87147; 87186; 96365; 99284; J0696

== ENCOUNTER → 2021-12-07 17:22 | Outpatient (CLI) | payer OTHER, SELFPAY ==
[2021-12-07 19:24] LABS: Prostate Specific Antigen 1.22 ng/mL (0.10-4.00)
== END ==
PROVIDERS: PCP Family Medicine; Referring Provider Urology; Visit Provider Urology
DX: C61 Malignant neoplasm of prostate (principal)
CPT/HCPCS: 36415; 84153

== ENCOUNTER → 2021-12-26 11:35 | Outpatient (CLI) | payer OTHER, SELFPAY | PROVIDERS: PCP Family Medicine; Visit Provider Urology | DX: R30.0 Dysuria (principal); R33.9 Retention of urine, unspecified | CPT/HCPCS: 51701; 87077; 87086; 87186 ==

== ENCOUNTER → 2022-01-27 11:43 | Outpatient (CLI) | payer OTHER, SELFPAY | PROVIDERS: PCP Family Medicine; Referring Provider Urology; Visit Provider Urology | DX: C61 Malignant neoplasm of prostate (principal) | CPT/HCPCS: 36415; 84153 ==

== ENCOUNTER → 2022-01-29 08:57 | Outpatient (CLI) | payer OTHER, SELFPAY | PROVIDERS: PCP Family Medicine; Visit Provider Specialist | DX: C61 Malignant neoplasm of prostate (principal); R30.0 Dysuria | CPT/HCPCS: 51702; 87077; 87086; 87147; 87186 ==

== ENCOUNTER → 2022-02-27 14:28 | Outpatient (CLI) | payer OTHER, SELFPAY | PROVIDERS: PCP Family Medicine; Visit Provider Urology | DX: R30.0 Dysuria (principal); R33.9 Retention of urine, unspecified | CPT/HCPCS: 51702; 87077; 87086; 87186 ==

== ENCOUNTER → 2022-03-06 17:38 | Outpatient (CLI) | payer OTHER, SELFPAY ==
[2022-03-08 04:37] LABS: Prostate Specific Antigen 0.626 ng/mL (0.10-4.00)
[2022-03-13 16:30] LABS: Appearance Urine UA CLEAR; Bilirubin Urine UA NEGATIVE (NEGATIVE); Color Urine UA YELLOW; Glucose Urine UA NEGATIVE (Negative); Ketones Urine UA 1+ (NEGATIVE); Leukocyte Esterase Urine UA TRACE (NEGATIVE); Nitrite Urine UA POSITIVE (Negative); Occult Blood Urine UA 3+ (Negative); Protein Urine UA 2+ (Negative); Specific Gravity Urine UA 1.025 (1.000-1.035); Urobilinogen Urine UA 0.2 E.U./dL (0.2)
[2022-03-13 16:34] LABS: Amorphous Sediment Urine 1+; Bacteria Urine Moderate (10-30); Culture Indicated Urine Specimen Cultured; RBC Urine 5-10/HPF (0-5/HPF); WBC Urine 5-10/HPF (0-5/HPF)
== END ==
PROVIDERS: PCP Family Medicine; Referring Provider Urology; Visit Provider Urology
DX: C61 Malignant neoplasm of prostate (principal)
CPT/HCPCS: 36415; 81001; 84153; 87077; 87086; 87186

== ENCOUNTER 2022-03-13 15:00 | Emergency (ER) | payer OTHER, SELFPAY ==
[2022-03-13] VITALS (11 sets, daily range): BP systolic 88–128; BP diastolic 52–61; PULSE 69–78; RESP 13–19; TEMP 36.9; O2SAT 95–99; BMI 25.2
--- NOTE | 2022-03-13 15:14 | ED.SYNCOPE ---
HPI - Syncope General Chief Complaint: Syncope Stated Complaint: hypotensive / neuro changes Time Seen by Provider: 03/13/22 15:11 History of Present Illness HPI narrative: 86-year-old gentleman arrives in the emergency department today having had some sort of a spell at the clinic where he was having his catheter managed. He has a past history of urinary retention, some dementia, near syncope, essential hypertension. No history of stroke. Patient himself does not have much insight as to what happened. He said he was feeling entirely well this morning as he has been over the past few days without any recent illness such as fever cough nausea vomiting diarrhea chest pain abdominal pain or any other symptoms of illness. He denies any recent changes in his baseline status. He says he was at the clinic to get his catheter adjusted and then he said he felt suddenly strange and many people were around him. He did not have any pain at the time. Paramedics report that clinic staff say that he became rigid in his right arm and flaccid his left arm and was unable to speak for a period of time such as a few minutes. This is approximately 2:30 p.m. today. Paramedics arrived to find him with a systolic pressure of 80 but mentating normally for them with a completely negative fast examination. Related Data Home Medications Medication Instructions Recorded Confirmed ASPIRIN (#ASPIRIN) 81 mg PO QDAY ##0 08/22/11 03/13/22 calcium carbonate 200 mg calcium 200 mg PO TID 10/05/21 03/13/22 (500 mg) chewable tablet (Tums) Previous Rx's Medication Instructions Recorded bicalutamide 50 mg tablet (Casodex) 50 mg PO DAILY #30 tabs 08/30/21 simvastatin 40 mg tablet See Rx Instructions .Route 09/28/21 .COMPLEX #90 tabs tamsulosin 0.4 mg capsule 0.8 mg PO DAILY #60 caps 09/29/21 lisinopril 10 mg tablet See Rx Instructions .Route 12/04/21 .COMPLEX #180 tabs cholecalciferol (vitamin D3) 1,250 1,250 mcg PO QWEEK #8 caps 01/15/22 mcg (50,000 unit) capsule Allergies Allergy/AdvReac Type Severity Reaction Status Date / Time ciprofloxacin Allergy Unknown DIZZY/LIGHT Verified 03/13/22 15:16 HEADED/CONF USION/AGITA TION Sulfa (Sulfonamide Allergy Unknown Verified 03/13/22 15:16 Antibiotics) Review of Systems Review of Systems Narrative: Complete review of systems is negative other than as noted in the HPI. Patient History Medical History (Updated 03/13/22 @ 17:29 by Kel Hazel MD) Asthma Coronary artery disease Depression Elevated PSA Excessive cerumen in both ear canals Hyperlipidemia Hypertension Lower urinary tract symptoms (LUTS) Osteoporosis Prostate cancer Retention of urine Screen for colon cancer Surgical History History of colon polyps (~2007) S/P CABG x 3 (~2006) Family History Father Stroke Social History marital status: number of children: 3 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 Status: Never smoker Smoking Status: Never smoker Substance Use Type: does not use Exam Narrative Exam Narrative: GENERAL: Alert, cooperative and in no distress. HEAD: Atraumatic. Normocephalic. EYES: Sclera are clear without icterus. Extraocular movements are full. ENT: No rhinorrhea. Oropharynx is moist. Mouth exam is benign. NECK: Supple. Full range of motion. CARDIOVASCULAR: Normal rate and rhythm without murmur gallop or rub. RESPIRATORY: Clear to auscultation. Breath sounds equal bilaterally. No wheezes, rales, or rhonchi. GASTROINTESTINAL: Abdomen soft, non-tender, nondistended. EXTREMITIES: No edema, full range of motion. No obvious trauma. BACK: Normal inspection, no CVA tenderness. NEURO: Nonfocal examination, normal speech, normal gait. Complete NIH stroke score reveals 2 points. Two points for both not knowing his age and not knowing the year. Otherwise completely normal and nonfocal neuro exam. SKIN: No rash or erythema of visible areas PSYCH: Normally oriented. Normal range of affect. Appropriate behavior Initial Vital Signs Initial Vital Signs: Vital Signs Temperature 98.4 F 03/13/22 15:02 Pulse Rate 73 03/13/22 15:02 Respiratory Rate 16 03/13/22 15:02 Blood Pressure 128/61 03/13/22 15:02 Pulse Oximetry 97 03/13/22 15:02 Oxygen Delivery Method 03/13/22 15:02 Course Orders Ordered: ED Orders 03/13/22 14:55 CBC Auto Diff [Complete Blood Count AUTO DIFF] Stat CMP [Comprehensive Metabolic Panel] Stat 03/13/22 15:12 EKG-12 Lead Stat Vital Signs Vital signs: Vital Signs - 8 hr 03/13/22 15:02 03/13/22 15:07 03/13/22 15:30 Temperature 98.4 F Pulse Rate 73 73 75 Respiratory Rate 16 17 Blood Pressure 128/61 Pulse Oximetry 97 96 96 Oxygen Delivery Method Room Air 03/13/22 15:31 03/13/22 15:31 03/13/22 16:00 Temperature Pulse Rate 78 71 Respiratory Rate 18 13 Blood Pressure 98/52 L Pulse Oximetry 96 97 Oxygen Delivery Method 03/13/22 16:17 03/13/22 16:17 03/13/22 16:18 Temperature Pulse Rate 69 71 Respiratory Rate 17 18 Blood Pressure 88/53 L Pulse Oximetry 95 96 Oxygen Delivery Method 03/13/22 16:18 Temperature Pulse Rate Respiratory Rate Blood Pressure 90/53 L Pulse Oximetry Oxygen Delivery Method MDM - Syncope Lab Data Result diagrams: 03/13/22 14:55 03/13/22 14:55 Labs: Lab Results 03/13/22 03/13/22 Range/Units 14:55 14:55 WBC 8.4 (4.5-11.0) X10^3/uL RBC 4.28 L (4.5-5.9) X10^6/uL Hgb 13.2 L (13.5-17.5) g/dL Hct 38.8 L (41-53) % MCV 90.7 (80-100) fL MCH 30.9 (26-34) PG MCHC 34.1 (30-36) % RDW 12.7 (11.6-14.8) % Plt Count 232 (150-400) X10^3/uL Neut % (Auto) 74.0 (50-75) % Lymph % (Auto) 14.7 L (25-40) % Lamar % (Auto) 7.2 (3-14) % Eos % (Auto) 3.4 (2-4) % Baso % (Auto) 0.7 (0-2) % Neut # (Auto) 6200 (4351-2211) /uL Lymph # (Auto) 1200 (5904-3090) /uL Lamar # (Auto) 600 (0-900) /uL Eos # (Auto) 300 (0-450) /uL Baso # (Auto) 100 (0-100) /uL Sodium 140 (137-145) mmol/L Potassium 4.1 (3.4-5.1) mmol/L Chloride 103 (98-107) mmol/L Carbon Dioxide 29 (22-32) mmol/L BUN 20 (9-20) mg/dL Creatinine 0.80 (0.66-1.25) mg/dL Estimated GFR > 60 (>60) mL/min BUN/Creatinine Ratio 25.0 H (6-22) Glucose 158 H (80-110) mg/dL Calcium 9.1 (8.4-10.2) mg/dL Total Bilirubin 1.0 (0.2-1.3) mg/dL AST 27 (17-59) IU/L ALT 18 (<50) IU/L Alkaline Phosphatase 87 (38-126) U/L Total Protein 7.2 (6.3-8.2) g/dL Albumin 3.9 (3.5-5.0) g/dL Globulin 3.3 (1.7-4.1) g/dL Albumin/Globulin Ratio 1.2 (1.0-2.8) Point of Care Testing Glucose POC 176 ECG Data Interpretation: EKG obtained at 3:22 p.m. shows a sinus rhythm at 73 beats per minute. There is a right bundle branch block. QTC is 429. He has a leftward axis MDM Narrative Medical decision making narrative: The stroke was certainly considered I do not believe this is likely what occurred. Most likely in my mind is vagal event related to the manipulation of the urinary catheter. He is completely back to normal now. Will check electrolytes and an EKG and a CBC and interview family for further details. I was able to talk to his who is at the bedside when this event occurred. The staff member at the urology clinic had just drawn a urine specimen off the catheter he began to stare off into space. She says this has happened to him before. He has returned to normal now and was normal since he arrived here in the ED. I do not think further workup is necessary in the emergency department. I recommend outpatient follow-up as needed. Discharge Plan Departure Patient Disposition: Home Clinical Impression: Near syncope Activity Restrictions/Additional Instructions: Thank you for interesting us with your care today. EKG and laboratory data were reassuring. Your physical examination was completely normal. I do not suspect stroke, heart attack, infection or any other dangerous cause for the event today. I believe what probably happened was that your blood pressure briefly dropped when they were adjusting your catheter. Follow-up with your doctor in a few days to discuss the events of today. Return to the ED for new or worsening symptoms. Prescriptions: No Action ASPIRIN (#ASPIRIN) 81 mg PO QDAY Qty: 0 simvastatin 40 mg tablet See Rx Instructions .ROUTE .COMPLEX Qty: 90 2RF Dose Instruction: TAKE 1 TABLET BY MOUTH AT BEDTIME Rx Instructions: TAKE 1 TABLET BY MOUTH AT BEDTIME lisinopril 10 mg tablet See Rx Instructions .ROUTE .COMPLEX Qty: 180 3RF Dose Instruction: TAKE 2 TABLETS BY MOUTH EVERY DAY Rx Instructions: TAKE 2 TABLETS BY MOUTH EVERY DAY cholecalciferol (vitamin D3) 1,250 mcg (50,000 unit) capsule 1,250 mcg PO QWEEK Qty: 8 0RF bicalutamide [Casodex] 50 mg tablet 50 mg PO DAILY Qty: 30 0RF tamsulosin 0.4 mg capsule 0.8 mg PO DAILY Qty: 60 12RF calcium carbonate [Tums] 200 mg calcium (500 mg) tablet,chewable 200 mg PO TID Referrals: Abraham Melton DO [Primary Care Provider] -
[2022-03-13 15:21] LABS: Add Manual Diff / Slide Review NO; Basophils Absolute Auto 100 /uL (0-100); Basophils Percent Auto 0.7 % (0-2); Eosinophils Absolute Auto 300 /uL (0-450); Eosinophils Percent Auto 3.4 % (2-4); Hematocrit 38.8 % (41-53); Hemoglobin 13.2 g/dL (13.5-17.5); Lymphocytes Absolute Auto 1200 /uL (1100-4500); Lymphocytes Percent Auto 14.7 % (25-40); Mean Corpuscular HGB Conc 34.1 % (30-36); Mean Corpuscular Hemoglobin 30.9 PG (26-34); Mean Corpuscular Volume 90.7 fL (80-100); Monocytes Absolute Auto 600 /uL (0-900); Monocytes Percent Auto 7.2 % (3-14); Neutrophils Absolute Auto 6200 /uL (1500-7000); Platelet Count 232 X10^3/uL (150-400); Red Blood Cell Count 4.28 X10^6/uL (4.5-5.9); Red Cell Distribution Width 12.7 % (11.6-14.8); White Blood Cell Count 8.4 X10^3/uL (4.5-11.0)
[2022-03-13 15:36] LABS: Alanine Aminotransferase 18 IU/L (<50); Albumin 3.9 g/dL (3.5-5.0); Albumin Globulin Ratio 1.2 (1.0-2.8); Alkaline Phosphatase 87 U/L (38-126); Aspartate Aminotransferase 27 IU/L (17-59); Blood Urea Nitrogen 20 mg/dL (9-20); Calcium 9.1 mg/dL (8.4-10.2); Carbon Dioxide 29 mmol/L (22-32); Chloride 103 mmol/L (98-107); Estimated Glomerular Filt Rate > 60 mL/min (>60); Globulin 3.3 g/dL (1.7-4.1); Glucose 158 mg/dL (80-110); HEMOLYSIS < 15 (0-50); Potassium 4.1 mmol/L (3.4-5.1); Sodium 140 mmol/L (137-145); Total Protein 7.2 g/dL (6.3-8.2)
== END 2022-03-13 17:35 | disposition home or self-care (01) ==
PROVIDERS: Emergency Provider Family Medicine Addiction Medicine; PCP Family Medicine
DX: C61 Malignant neoplasm of prostate (principal); R55 Syncope and collapse; R07.9 Chest pain, unspecified; R33.9 Retention of urine, unspecified; R39.89 Other symptoms and signs involving the genitourinary system; I95.0 Idiopathic hypotension; R41.82 Altered mental status, unspecified; R29.3 Abnormal posture; Z87.440 Personal history of urinary (tract) infections
CPT/HCPCS: 80053; 85025; 93005; 93010; 99215; 99281; 99284

== ENCOUNTER → 2022-03-27 10:39 | Outpatient (CLI) | payer OTHER, SELFPAY | PROVIDERS: PCP Family Medicine; Visit Provider Urology | DX: R30.0 Dysuria (principal); R33.9 Retention of urine, unspecified | CPT/HCPCS: 51702; 87086 ==

== ENCOUNTER → 2022-04-24 09:52 | Outpatient (CLI) | payer OTHER, SELFPAY ==
[2022-04-24 10:29] LABS: Appearance Urine UA CLOUDY; Bilirubin Urine UA NEGATIVE (NEGATIVE); Color Urine UA YELLOW; Glucose Urine UA TRACE g/dL (Negative); Ketones Urine UA TRACE (NEGATIVE); Leukocyte Esterase Urine UA 2+ (NEGATIVE); Nitrite Urine UA POSITIVE (Negative); Occult Blood Urine UA 3+ (Negative); Protein Urine UA 1+ (Negative); Specific Gravity Urine UA 1.025 (1.000-1.035); Urobilinogen Urine UA 0.2 E.U./dL (0.2)
[2022-04-24 10:57] LABS: Bacteria Urine None Seen; RBC Urine 30-100/HPF (0-5/HPF); Squamous Epithelial Cell Urine 1-5 /HPF (0-5/HPF); WBC Urine 10-30/HPF (0-5/HPF)
[2022-04-24 10:58] LABS: Culture Indicated Urine Specimen Cultured
== END ==
PROVIDERS: PCP Family Medicine; Visit Provider Urology
DX: N39.0 Urinary tract infection, site not specified (principal); R33.9 Retention of urine, unspecified; R39.9 Unspecified symptoms and signs involving the genitourinary system
CPT/HCPCS: 51702; 81001; 87077; 87086

== ENCOUNTER → 2022-05-22 09:48 | Outpatient (CLI) | payer OTHER, SELFPAY | PROVIDERS: PCP Family Medicine; Visit Provider Urology | DX: R39.9 Unspecified symptoms and signs involving the genitourinary system (principal); Z97.8 Presence of other specified devices | CPT/HCPCS: 51702; 87086 ==

== ENCOUNTER 2022-06-10 20:37 | Emergency (ER) | payer OTHER, SELFPAY ==
[2022-06-10 20:42] VITALS: BP 131/98; PULSE 113; RESP 22; TEMP 36.6; O2SAT 98
--- NOTE | 2022-06-10 20:47 | ED_ITS ---
HPI - Male Genitourinary General Chief complaint: Urogenital-Male Stated complaint: Catheter plugged up Time Seen by Provider: 06/10/22 20:41 Source: patient Mode of arrival: Ambulatory History of Present Illness HPI Narrative: 86-year-old male nonsmoker with a history of Miller catheter for many months presents with family in the chief complaint that it stopped draining about for 5 hours ago. Since his Miller has stopped draining he is developed some lower abdominal discomfort but states he felt fine earlier in the day. He is had no runny nose, sore throat or cough. He denies any chest pain or shortness of breath. Denies any change in bowel habits. He is had no fever or chills. His Miller catheter was last changed about 2 weeks ago Related Data Home Medications Medication Instructions Recorded Confirmed ASPIRIN (#ASPIRIN) 81 mg PO QDAY ##0 08/22/11 03/13/22 calcium carbonate 200 mg calcium 200 mg PO TID 10/05/21 03/13/22 (500 mg) chewable tablet (Tums) Previous Rx's Medication Instructions Recorded bicalutamide 50 mg tablet (Casodex) 50 mg PO DAILY #30 tabs 08/30/21 simvastatin 40 mg tablet See Rx Instructions .Route 09/28/21 .COMPLEX #90 tabs tamsulosin 0.4 mg capsule 0.8 mg PO DAILY #60 caps 09/29/21 lisinopril 10 mg tablet See Rx Instructions .Route 12/04/21 .COMPLEX #180 tabs cholecalciferol (vitamin D3) 1,250 1,250 mcg PO QWEEK #8 caps 01/15/22 mcg (50,000 unit) capsule cefdinir 300 mg capsule 300 mg PO BID #20 caps 03/15/22 amoxicillin 500 mg-potassium 1 tab PO TID #30 tabs 05/01/22 clavulanate 125 mg tablet (Augmentin) Allergies Allergy/AdvReac Type Severity Reaction Status Date / Time ciprofloxacin Allergy Unknown DIZZY/LIGHT Verified 03/13/22 15:16 HEADED/CONF USION/AGITA TION Sulfa (Sulfonamide Allergy Unknown Verified 03/13/22 15:16 Antibiotics) Review of Systems Review of Systems Narrative: GENERAL: Denies chills, fatigue, malaise, fever, sweats. HEENT: Denies sinus pain, ear pain, sore throat, difficulty swallowing, dizziness. RESPIRATORY: Denies dyspnea, cough, wheezing, hemoptysis, sputum. CARDIOVASCULAR: Denies chest pain, palpitations, orthopnea, edema, GASTROINTESTINAL: See HPI : See HPI MUSCULOSKELETAL: denies weakness, joint pain, or bony pain SKIN: Denies rash, skin lesions, or other NEUROLOGIC: Denies weakness, headache, numbness, change in speech, confusion, seizures, incoordination. PSYCHIATRIC: No concerning psychosocial issues. 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 Extraoccular muscles are intact bilaterally. There is no subconjunctival hemorrhage or exudate. CHEST: Lungs are clear to auscultation bilaterally and free of wheezes, rales, or rhonchi. Heart rate is regular rhythm, there are no murmurs, clicks, rubs, or gallops. There is no chest wall tenderness. ABD: Abdomen is soft and minimally tender. There is no guarding or rebound. Bowel sounds are normal in all 4 quadrants. There is no mass or organomegaly. EXT: Full painless ROM of all extremities with no loss of sensation or strength. SKIN: Warm, pink, and dry. No erythema or rash Initial Vital Signs Initial Vital Signs: Vital Signs Temperature 97.8 F 06/10/22 20:42 Pulse Rate 113 H 06/10/22 20:42 Respiratory Rate 22 06/10/22 20:42 Blood Pressure 131/98 H 06/10/22 20:42 Pulse Oximetry 98 06/10/22 20:42 Oxygen Delivery Method 06/10/22 20:42 Course Course Course Narrative: nursing care with miller easily flushes and there is appropriate urine flow. Patient with near immediate and complete improvement in symptoms Vital Signs Vital signs: Vital Signs - 8 hr 06/10/22 20:42 Temperature 97.8 F Pulse Rate 113 H Respiratory Rate 22 Blood Pressure 131/98 H Pulse Oximetry 98 Oxygen Delivery Method Room Air Discharge Plan Departure Patient Disposition: Home Clinical Impression: Miller catheter problem Instructions: How to Care for Your Miller Catheter -- Male Activity Restrictions/Additional Instructions: *You have been diagnosed with [Miller catheter problem, thankfully this was easily resolved with flush] *What to do: *Please continue to take your regular medications as directed. *Please follow up with your primary care provider in 2-3 days, call for an appointment. Let them know you were seen in the Emergency Department and that we ask that you be seen in follow up. We will electronically transmit a record of today's note if your PCP is in our system *Return to Emergency Department if you should have any new, worsening or concerning symptoms Prescriptions: No Action ASPIRIN (#ASPIRIN) 81 mg PO QDAY Qty: 0 simvastatin 40 mg tablet See Rx Instructions .ROUTE .COMPLEX Qty: 90 2RF Dose Instruction: TAKE 1 TABLET BY MOUTH AT BEDTIME Rx Instructions: TAKE 1 TABLET BY MOUTH AT BEDTIME lisinopril 10 mg tablet See Rx Instructions .ROUTE .COMPLEX Qty: 180 3RF Dose Instruction: TAKE 2 TABLETS BY MOUTH EVERY DAY Rx Instructions: TAKE 2 TABLETS BY MOUTH EVERY DAY cholecalciferol (vitamin D3) 1,250 mcg (50,000 unit) capsule 1,250 mcg PO QWEEK Qty: 8 0RF cefdinir 300 mg capsule 300 mg PO BID Qty: 20 0RF amoxicillin-pot clavulanate [Augmentin] 500-125 mg tablet 1 tab PO TID Qty: 30 0RF bicalutamide [Casodex] 50 mg tablet 50 mg PO DAILY Qty: 30 0RF tamsulosin 0.4 mg capsule 0.8 mg PO DAILY Qty: 60 12RF calcium carbonate [Tums] 200 mg calcium (500 mg) tablet,chewable 200 mg PO TID Referrals: Mumtaz Melton DO [Primary Care Provider] - Visit Report Forms: Patient Portal/API
== END 2022-06-10 21:04 | disposition home or self-care (01) ==
PROVIDERS: Emergency Provider Emergency Medicine; PCP Family Medicine
DX: T83.9XXA Unspecified complication of genitourinary prosthetic device, implant and graft, initial encounter (principal)
CPT/HCPCS: 51798; 99282

== ENCOUNTER 2022-06-13 16:07 | Inpatient (IN) | payer OTHER, SELFPAY ==
[2022-06-13 16:28] VITALS: BP 164/86; PULSE 87; RESP 16; TEMP 35.9; O2SAT 98; BMI 24.4
--- NOTE | 2022-06-13 17:23 | ED_ITS ---
HPI - Male Genitourinary <Ania Schroeder, [facility] - Last Filed: 06/13/22 20:08> General Chief complaint: Urogenital-Male Stated complaint: urinary catheter is plugged Time Seen by Provider: 06/13/22 17:15 Mode of arrival: Family Vehicle History of Present Illness HPI Narrative: This is an 86-year-old male who presents to the emergency department with his son with reported urinary catheter obstruction. He was seen 3 days ago in the emergency department for Mack catheter problem with obstruction, his Mack catheter had been in for 2 weeks at that time, did not have signs or symptoms of infection, his urinary catheter was flushed and he was discharged home there was no urine evaluation that day. He is brought in today for altered mental status, chills, concern for urinary tract infection with suprapubic tenderness. He has history of UTIs, wears a catheter for BPH and prostate cancer and is chronically indwelling. Patient's primary care provider is Dr. Melton. Review of urine cultures below. Patient went to his bridge engineer's appointment this morning, was getting clearance for upcoming urogenital surgery to ?remove his Mack catheter ?. Patient is not on anticoagulants, has not had recent antibiotics, currently on tamsulosin b.i.d., simvastatin, lisinopril and baby aspirin daily. Patient reports feeling ill, fatigued, he was diaphoretic during his cardiology appointment this morning and encouraged to go to the emergency department for evaluation. Patient reports having chills. Patient's son states that he was di aphoretic during his appointment at the bridge engineer office today. Name: Isaias Patel Age/Sex: 86/M Attend Dr: Alex Walker MD Unit#: [id number] : 1935Location: LAB Re04/24/22 Disch: Status: REG CLI SPEC #: [id number] PUMA: 04/24/22 STATUS: COMP REQ #: [id number] SPDESC: RECD: 04/24/22-[address]: Alex Walker MD SOURCE: UA Reflex ENTR: 04/24/22-[address]: Mumtaz Melton D.O. FAX TO: ORDERED: URINE CULTURE Procedure Result Verified Site Urine Culture Final 04/26/22-1040 Organism 1 Pantoea spp [place] Count >100,000 CFU/ml Action to follow Sent to Reference Lab for Workup Pantoea spp is unclaimed for sensitivity on the Vitek 2 panel. If further workup is requested, this organism will be sent to the reference lab. 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 Serratia liquefaciens group [facility] RX --------- --- * Amoxicillin/Clavulanate R * Cefazolin >=64 R * Cefepime <=1 S * Ceftazidime <=1 S * Ceftriaxone <=1 S * Ciprofloxacin <=0.25 S * Ertapenem <=0.5 S * Gentamicin <=1 S * Imipenem 1 S * Levofloxacin <=0.12 S * Nitrofurantoin 128 R * Tobramycin <=1 S * Trimethoprim/Sulfamethoxazole <=20 S * Piperacillin/Tazobactam <=4 S Related Data Home Medications Medication Instructions Recorded Confirmed ASPIRIN (#ASPIRIN) 81 mg PO QDAY ##0 08/22/11 06/13/22 calcium carbonate 200 mg calcium 200 mg PO TID 10/05/21 06/13/22 (500 mg) chewable tablet (Tums) lisinopril 10 mg tablet 20 mg PO DAILY 06/13/22 06/13/22 simvastatin 40 mg tablet 40 mg PO QPM 06/13/22 06/13/22 Previous Rx's Medication Instructions Recorded bicalutamide 50 mg tablet (Casodex) 50 mg PO DAILY #30 tabs 08/30/21 tamsulosin 0.4 mg capsule 0.8 mg PO DAILY #60 caps 09/29/21 Allergies Allergy/AdvReac Type Severity Reaction Status Date / Time ciprofloxacin Allergy Unknown DIZZY/LIGHT Verified 06/13/22 16:33 HEADED/CONF USION/AGITA TION Sulfa (Sulfonamide Allergy Unknown Verified 06/13/22 16:33 Antibiotics) Review of Systems <REVA Stanton - Last Filed: 06/13/22 20:08> Review of Systems Narrative: Review of systems is negative for acute abnormalities unless otherwise noted in HPI Patient History <REVA Stanton - Last Filed: 06/13/22 20:08> Medical History Asthma Chronic indwelling Mack catheter Coronary artery disease Depression Elevated PSA Excessive cerumen in both ear canals Hyperlipidemia Hypertension Lower urinary tract symptoms (LUTS) Osteoporosis Prostate cancer Retention of urine Screen for colon cancer Surgical History History of colon polyps (~2007) S/P CABG x 3 (~2006) Family History Father Stroke Social History marital status: number of children: 3 household members: spouse, family and children 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 General: cooperative, comfortable, in no acute distress, well groomed, warm skin to palpation HEENT: symmetrical facial expressions, moist mucous membranes Cardiovascular: regular rate and rhythm, no peripheral edema, warm extremities Respiratory: normal effort, able to speak in complete sentences, without wheezing, stridor, or abnormal breath sounds. No retractions or tachypnea. GI: abdomen soft, nontender to palpation, nondistended, without masses, rebound tenderness or exquisite tenderness with exam. : Indwelling Mack catheter was removed without difficulty, patient c omplained of pain with this procedure, new Mack catheter was placed and urine sample obtained and sent to lab. Patient has tenderness to his suprapubic region, excoriation/rash to his groin in intertriginous folds MSK: moves all extremities, neurovascularly intact, no weakness, normal tone Skin: brisk capillary refill, without pallor or erythema, erythema to the right groin skin fold with erythema to his scrotum, Neuro: normal speech and cognition, A&O x3, ambulatory, clear speech Psych: mental status is grossly normal, congruent mood, normal affect, pleasant and cooperative Initial Vital Signs Initial Vital Signs: Vital Signs Temperature 96.7 F L 06/13/22 16:28 Pulse Rate 87 06/13/22 16:28 Respiratory Rate 16 06/13/22 16:28 Blood Pressure 164/86 H 06/13/22 16:28 Pulse Oximetry 98 06/13/22 16:28 Oxygen Delivery Method 06/13/22 16:28 <Marcela Gunter DO - Last Filed: 06/14/22 07:42> Initial Vital Signs Initial Vital Signs: Vital Signs Temperature 96.7 F L 06/13/22 16:28 Pulse Rate 87 06/13/22 16:28 Respiratory Rate 16 06/13/22 16:28 Blood Pressure 164/86 H 06/13/22 16:28 Pulse Oximetry 98 06/13/22 16:28 Oxygen Delivery Method 06/13/22 16:28 Course <REVA Stanton - Last Filed: 06/13/22 20:08> Course Course Narrative: Consultation with pharmacy regarding patient's history of multiple drug resistance UTIs, chronic indwelling catheter, recent antibiotic of cefdinir, and she recommends ceftriaxone and ertapenem if discharging home, if admitting to the hospital to transition to Zosyn q.8 hours. Patient's lab work resulted with mild leukocytosis, hyperkalemia, elevation of his total bilirubin and patient has altered mental status currently. Will attempt admission to the hospitalist for sepsis with a urogenital source. Orders Ordered: Acetaminophen (Acetaminophen 325 Mg Tablet) 650 mg PO Q6H PRN PRN Reason: Fever/Mild Pain (1-3) Aspirin (Aspirin Ec 81 Mg Tablet) 81 mg PO DAILY [facility] Hydromorphone HCl (Hydromorphone 1 Mg Inj) 1 mg IV Q4H PRN PRN Reason: Pain, Severe (7-10) Sodium Chloride (Normal Saline 0.45%) 1,000 mls @ 100 mls/hr IV CONT [facility] Last Admin: 06/13/22 22:04 Dose: 100 mls/hr Documented By: DIANN Piperacillin Sod/Tazobactam (Sod 3.375 gm/ Sodium Chloride) 100 mls @ 25 mls/hr IV Q8H [facility] Last Admin: 06/14/22 06:17 Dose: 25 mls/hr Documented By: DIANN Lisinopril (Lisinopril 10 Mg Tablet) 10 mg PO DAILY [facility] Naloxone HCl (Naloxone 0.4 Mg/Ml Vial) 0.2 mg IV Q2MIN PRN PRN Reason: Opiate Reversal Ondansetron HCl (Ondansetron 4 Mg/2 Ml Inj) 4 mg IV Q8HR PRN PRN Reason: Nausea And Vomiting Oxycodone HCl (Oxycodone Ir 5 Mg Tablet) 5 mg PO Q3H PRN PRN Reason: Pain, Moderate (4-6) Tamsulosin HCl (Tamsulosin 0.4 Mg Capsule) 0.8 mg PO DAILY [facility] Discontinued Medications Sodium Chloride (Normal Saline 0.9%) 1,000 mls @ 1,000 mls/hr IV BOLUS ONE Stop: 06/13/22 18:23 Last Infusion: 06/13/22 19:37 Dose: 0 mls/hr Documented By: Admin: 06/13/22 18:27 Dose: 1,000 mls/hr Documented By: GARCIA Ceftriaxone Sodium 1,000 mg/ (Sodium Chloride) 100 mls @ 200 mls/hr IV NOW ONE Stop: 06/13/22 17:45 Last Infusion: 06/13/22 20:23 Dose: 0 mls/hr Documented By: Admin: 06/13/22 19:32 Dose: 200 mls/hr Documented By: ANASTACIA Ertapenem 1 gm/ Sodium (Chloride) 100 mls @ 200 mls/hr IV NOW ONE Stop: 06/13/22 17:59 Last Infusion: 06/13/22 19:32 Dose: 0 mls/hr Documented By: Admin: 06/13/22 18:27 Dose: 200 mls/hr Documented By: GARCIA Reevaluation(s) Reevaluation #1: Bladder scan shows 385, patient smells of urine, no drainage out catheter, patient states he is had this indwelling catheter for 3 weeks or longer, poor historian, new Mack catheter placed, urine sample obtained from new Mack catheter Vital Signs Vital signs: Vital Signs - 8 hr 06/13/22 16:28 Temperature 96.7 F L Pulse Rate 87 Respiratory Rate 16 Blood Pressure 164/86 H Pulse Oximetry 98 Oxygen Delivery Method Room Air <Marcela Botnick, DO - Last Filed: 06/14/22 07:42> Orders Ordered: Acetaminophen (Acetaminophen 325 Mg Tablet) 650 mg PO Q6H PRN PRN Reason: Fever/Mild Pain (1-3) Aspirin (Aspirin Ec 81 Mg Tablet) 81 mg PO DAILY TETO Hydromorphone HCl (Hydromorphone 1 Mg Inj) 1 mg IV Q4H PRN PRN Reason: Pain, Severe (7-10) Sodium Chloride (Normal Saline 0.45%) 1,000 mls @ 100 mls/hr IV CONT [facility] Last Admin: 06/13/22 22:04 Dose: 100 mls/hr Documented By: DIANN Piperacillin Sod/Tazobactam (Sod 3.375 gm/ Sodium Chloride) 100 mls @ 25 mls/hr IV Q8H [facility] Last Admin: 06/14/22 06:17 Dose: 25 mls/hr Documented By: DIANN Lisinopril (Lisinopril 10 Mg Tablet) 10 mg PO DAILY TETO Naloxone HCl (Naloxone 0.4 Mg/Ml Vial) 0.2 mg IV Q2MIN PRN PRN Reason: Opiate Reversal Ondansetron HCl (Ondansetron 4 Mg/2 Ml Inj) 4 mg IV Q8HR PRN PRN Reason: Nausea And Vomiting Oxycodone HCl (Oxycodone Ir 5 Mg Tablet) 5 mg PO Q3H PRN PRN Reason: Pain, Moderate (4-6) Tamsulosin HCl (Tamsulosin 0.4 Mg Capsule) 0.8 mg PO DAILY [facility] Discontinued Medications Sodium Chloride (Normal Saline 0.9%) 1,000 mls @ 1,000 mls/hr IV BOLUS ONE Stop: 06/13/22 18:23 Last Infusion: 06/13/22 19:37 Dose: 0 mls/hr Documented By: Admin: 06/13/22 18:27 Dose: 1,000 mls/hr Documented By: GARCIA Ceftriaxone Sodium 1,000 mg/ (Sodium Chloride) 100 mls @ 200 mls/hr IV NOW ONE Stop: 06/13/22 17:45 Last Infusion: 06/13/22 20:23 Dose: 0 mls/hr Documented By: Admin: 06/13/22 19:32 Dose: 200 mls/hr Documented By: ANASTACIA Ertapenem 1 gm/ Sodium (Chloride) 100 mls @ 200 mls/hr IV NOW ONE Stop: 06/13/22 17:59 Last Infusion: 06/13/22 19:32 Dose: 0 mls/hr Documented By: Admin: 06/13/22 18:27 Dose: 200 mls/hr Documented By: GARCIA Vital Signs Vital signs: Vital Signs - 8 hr 06/13/22 16:28 Temperature 96.7 F L Pulse Rate 87 Respiratory Rate 16 Blood Pressure 164/86 H Pulse Oximetry 98 Oxygen Delivery Method Room Air MDM - Male Genitourinary <ROSY StantonP - Last Filed: 06/13/22 20:08> Lab Data Result diagrams: 06/13/22 18:00 06/13/22 18:00 Labs: Lab Results 06/13/22 06/13/22 06/13/22 Range/Units 17:26 18:00 18:00 WBC 11.1 H (4.5-11.0) X10^3/uL RBC 4.34 L (4.5-5.9) X10^6/uL Hgb 13.2 L (13.5-17.5) g/dL Hct 39.0 L (41-53) % MCV 89.9 (80-100) fL MCH 30.3 (26-34) PG MCHC 33.7 (30-36) % RDW 13.0 (11.6-14.8) % Plt Count 232 (150-400) X10^3/uL Neut % (Auto) 84.7 H (50-75) % Lymph % (Auto) 7.3 L (25-40) % [place] % (Auto) 7.4 (3-14) % Eos % (Auto) 0.3 L (2-4) % Baso % (Auto) 0.3 (0-2) % Neut # (Auto) 9400 H (0428-6908) /uL Lymph # (Auto) 800 L (6366-6150) /uL [place] # (Auto) 800 (0-900) /uL Eos # (Auto) 0 (0-450) /uL Baso # (Auto) 0 (0-100) /uL Sodium 138 (137-145) mmol/L Potassium 5.2 H (3.4-5.1) mmol/L Chloride 102 (98-107) mmol/L Carbon Dioxide 27 (22-32) mmol/L BUN 28 H (9-20) mg/dL Creatinine 0.85 (0.66-1.25) mg/dL Estimated GFR > 60 (>60) mL/min BUN/Creatinine Ratio 32.9 H (6-22) Glucose 111 H (80-110) mg/dL Lactate (0.7-2.1) mmol/L Calcium 9.4 (8.4-10.2) mg/dL Total Bilirubin 1.6 H (0.2-1.3) mg/dL AST 31 (17-59) IU/L ALT 26 (<50) IU/L Alkaline Phosphatase 96 (38-126) U/L C-Reactive Protein 0.6 (<1.0) mg/dL Total Protein 7.9 (6.3-8.2) g/dL Albumin 4.3 (3.5-5.0) g/dL Globulin 3.6 (1.7-4.1) g/dL Albumin/Globulin Ratio 1.2 (1.0-2.8) Procalcitonin 0.06 (<0.5) ng/mL Urine Color Yellow Urine Appearance Cloudy Urine pH 7.0 (4.5-8.0) Ur Specific [place] 1.010 (1.000-1.035) Urine Protein 1+ H (Negative) Urine Glucose (UA) Negative (Negative) g/dL Urine Ketones Negative (NEGATIVE) Urine Occult Blood 3+ H (Negative) Urine Nitrate Positive H (Negative) Urine Bilirubin Negative (NEGATIVE) Urine Urobilinogen 0.2 (0.2) E.U./dL Ur Leukocyte Esterase 3+ H (NEGATIVE) Urine RBC 5-10/hpf H (0-5/HPF) Urine WBC 5-10/hpf H (0-5/HPF) Amorphous Sediment 1+ Urine Bacteria Moderate (10-30) H (None) Ur Culture Indicated? Culture not indicate 06/13/22 Range/Units 18:00 WBC (4.5-11.0) X10^3/uL RBC (4.5-5.9) X10^6/uL Hgb (13.5-17.5) g/dL Hct (41-53) % MCV (80-100) fL MCH (26-34) PG MCHC (30-36) % RDW (11.6-14.8) % Plt Count (150-400) X10^3/uL Neut % (Auto) (50-75) % Lymph % (Auto) (25-40) % [place] % (Auto) (3-14) % Eos % (Auto) (2-4) % Baso % (Auto) (0-2) % Neut # (Auto) (1683-0509) /uL Lymph # (Auto) (1847-0786) /uL [place] # (Auto) (0-900) /uL Eos # (Auto) (0-450) /uL Baso # (Auto) (0-100) /uL Sodium (137-145) mmol/L Potassium (3.4-5.1) mmol/L Chloride (98-107) mmol/L Carbon Dioxide (22-32) mmol/L BUN (9-20) mg/dL Creatinine (0.66-1.25) mg/dL Estimated GFR (>60) mL/min BUN/Creatinine Ratio (6-22) Glucose (80-110) mg/dL Lactate 1.3 (0.7-2.1) mmol/L Calcium (8.4-10.2) mg/dL Total Bilirubin (0.2-1.3) mg/dL AST (17-59) IU/L ALT (<50) IU/L Alkaline Phosphatase (38-126) U/L C-Reactive Protein (<1.0) mg/dL Total Protein (6.3-8.2) g/dL Albumin (3.5-5.0) g/dL Globulin (1.7-4.1) g/dL Albumin/Globulin Ratio (1.0-2.8) Procalcitonin (<0.5) ng/mL Urine Color Urine Appearance Urine pH (4.5-8.0) Ur Specific [place] (1.000-1.035) Urine Protein (Negative) Urine Glucose (UA) (Negative) g/dL Urine Ketones (NEGATIVE) Urine Occult Blood (Negative) Urine Nitrate (Negative) Urine Bilirubin (NEGATIVE) Urine Urobilinogen (0.2) E.U./dL Ur Leukocyte Esterase (NEGATIVE) Urine RBC (0-5/HPF) Urine WBC (0-5/HPF) Amorphous Sediment Urine Bacteria (None) Ur Culture Indicated? MDM Narrative Medical decision making narrative: This is a 86-year-old male with history of prostate cancer and indwelling catheter for the last 2 weeks and 2 days who presents to the emergency department with his son for urinary catheter obstruction with no drainage from his catheter. He was seen in the emergency department 3 days ago and his Mack catheter was flushed but no urine sample was obtained and he re obstructed his catheter today. This catheter was removed and a new 1 was placed without difficulty, patient complained of pain but did not have any difficulty placing. Patient's son reports that patient was diaphoretic this morning, on my exam he has an altered mental status, suprapubic pain, urine odor and prior history of multiple drug-resistant urinary tract infections. Consultation with the pharmacist for antibiotic recommendations, decided on ceftriaxone while in the emergency department with 1 g of ertapenem. His lab work was lost and unfortunately took 3 hours to result so when it did, it was notable that patient had end-organ changes concerning for sepsis and dehydration. Will transition to [facility] as an inpatient, attempted to call hospitalist for admission but they are changing shift, will retry later. Patient is receiving his IV fluids and antibiotics currently. Dr. Orozco hospitalist accepts patient for inpatient admission for urinary retention, sepsis with urinary source, ordered a renal ultrasound to rule out hydronephrosis, discuss his presentation, history with the Mack catheter, visit with Dr. Walker, recent antibiotics, and antibiotic plan as discussed with pharmacy for [facility] if admitted to the hospital for more complete coverage with MDR urine culture history. Patient was informed of lab and imaging results, pertinent diagnoses, consulting physicians, and treatment plan. I have spoken with the patient in regard to admission, patient understands and agrees. I have communicated the patient's evaluation and treatment plan to the admitting physician who agrees with admission. All questions answered at this time. <Marcela Gunter, DO - Last Filed: 06/14/22 07:42> Lab Data Labs: Lab Results 06/13/22 06/13/22 06/13/22 Range/Units 17:26 18:00 18:00 WBC 11.1 H (4.5-11.0) X10^3/uL RBC 4.34 L (4.5-5.9) X10^6/uL Hgb 13.2 L (13.5-17.5) g/dL Hct 39.0 L (41-53) % MCV 89.9 (80-100) fL MCH 30.3 (26-34) PG MCHC 33.7 (30-36) % RDW 13.0 (11.6-14.8) % Plt Count 232 (150-400) X10^3/uL Neut % (Auto) 84.7 H (50-75) % Lymph % (Auto) 7.3 L (25-40) % [place] % (Auto) 7.4 (3-14) % Eos % (Auto) 0.3 L (2-4) % Baso % (Auto) 0.3 (0-2) % Neut # (Auto) 9400 H (2903-7407) /uL Lymph # (Auto) 800 L (1204-4470) /uL [place] # (Auto) 800 (0-900) /uL Eos # (Auto) 0 (0-450) /uL Baso # (Auto) 0 (0-100) /uL Sodium 138 (137-145) mmol/L Potassium 5.2 H (3.4-5.1) mmol/L Chloride 102 (98-107) mmol/L Carbon Dioxide 27 (22-32) mmol/L BUN 28 H (9-20) mg/dL Creatinine 0.85 (0.66-1.25) mg/dL Estimated GFR > 60 (>60) mL/min BUN/Creatinine Ratio 32.9 H (6-22) Glucose 111 H (80-110) mg/dL Lactate (0.7-2.1) mmol/L Calcium 9.4 (8.4-10.2) mg/dL Total Bilirubin 1.6 H (0.2-1.3) mg/dL AST 31 (17-59) IU/L ALT 26 (<50) IU/L Alkaline Phosphatase 96 (38-126) U/L C-Reactive Protein 0.6 (<1.0) mg/dL Total Protein 7.9 (6.3-8.2) g/dL Albumin 4.3 (3.5-5.0) g/dL Globulin 3.6 (1.7-4.1) g/dL Albumin/Globulin Ratio 1.2 (1.0-2.8) Procalcitonin 0.06 (<0.5) ng/mL Urine Color Yellow Urine Appearance Cloudy Urine pH 7.0 (4.5-8.0) Ur Specific [place] 1.010 (1.000-1.035) Urine Protein 1+ H (Negative) Urine Glucose (UA) Negative (Negative) g/dL Urine Ketones Negative (NEGATIVE) Urine Occult Blood 3+ H (Negative) Urine Nitrate Positive H (Negative) Urine Bilirubin Negative (NEGATIVE) Urine Urobilinogen 0.2 (0.2) E.U./dL Ur Leukocyte Esterase 3+ H (NEGATIVE) Urine RBC 5-10/hpf H (0-5/HPF) Urine WBC 5-10/hpf H (0-5/HPF) Amorphous Sediment 1+ Urine Bacteria Moderate (10-30) H (None) Ur Culture Indicated? Culture not indicate 06/13/22 Range/Units 18:00 WBC (4.5-11.0) X10^3/uL RBC (4.5-5.9) X10^6/uL Hgb (13.5-17.5) g/dL Hct (41-53) % MCV (80-100) fL MCH (26-34) PG MCHC (30-36) % RDW (11.6-14.8) % Plt Count (150-400) X10^3/uL Neut % (Auto) (50-75) % Lymph % (Auto) (25-40) % [place] % (Auto) (3-14) % Eos % (Auto) (2-4) % Baso % (Auto) (0-2) % Neut # (Auto) (8250-8992) /uL Lymph # (Auto) (9886-3689) /uL [place] # (Auto) (0-900) /uL Eos # (Auto) (0-450) /uL Baso # (Auto) (0-100) /uL Sodium (137-145) mmol/L Potassium (3.4-5.1) mmol/L Chloride (98-107) mmol/L Carbon Dioxide (22-32) mmol/L BUN (9-20) mg/dL Creatinine (0.66-1.25) mg/dL Estimated GFR (>60) mL/min BUN/Creatinine Ratio (6-22) Glucose (80-110) mg/dL Lactate 1.3 (0.7-2.1) mmol/L Calcium (8.4-10.2) mg/dL Total Bilirubin (0.2-1.3) mg/dL AST (17-59) IU/L ALT (<50) IU/L Alkaline Phosphatase (38-126) U/L C-Reactive Protein (<1.0) mg/dL Total Protein (6.3-8.2) g/dL Albumin (3.5-5.0) g/dL Globulin (1.7-4.1) g/dL Albumin/Globulin Ratio (1.0-2.8) Procalcitonin (<0.5) ng/mL Urine Color Urine Appearance Urine pH (4.5-8.0) Ur Specific [place] (1.000-1.035) Urine Protein (Negative) Urine Glucose (UA) (Negative) g/dL Urine Ketones (NEGATIVE) Urine Occult Blood (Negative) Urine Nitrate (Negative) Urine Bilirubin (NEGATIVE) Urine Urobilinogen (0.2) E.U./dL Ur Leukocyte Esterase (NEGATIVE) Urine RBC (0-5/HPF) Urine WBC (0-5/HPF) Amorphous Sediment Urine Bacteria (None) Ur Culture Indicated? Discharge Plan Departure Patient Disposition: Admitted As Inpatient Clinical Impression: Acute urinary retention, Acute cystitis with hematuria, Acute hyperkalemia, Acute alteration in mental status, Total bilirubin, elevated Sepsis Qualifiers: Sepsis type: sepsis due to unspecified organism Sepsis acute organ dysfunction status: with acute organ dysfunction Severe sepsis acute organ dysfunction type: unspecified Admit Date/Time: 06/13/22 19:49 Admit Provider: Raven Orozco <Marcela Gunter DO - Last Filed: 06/14/22 07:42> Cosign ED Attending Edgarature Attestation: I was immediately available in the department for consultation. Documentation has been reviewed. I agree with assessment and plan.
[2022-06-13 17:50] LABS: Appearance Urine UA CLOUDY; Bilirubin Urine UA NEGATIVE (NEGATIVE); Color Urine UA YELLOW; Glucose Urine UA NEGATIVE (Negative); Ketones Urine UA NEGATIVE (NEGATIVE); Leukocyte Esterase Urine UA 3+ (NEGATIVE); Nitrite Urine UA POSITIVE (Negative); Occult Blood Urine UA 3+ (Negative); Protein Urine UA 1+ (Negative); Urobilinogen Urine UA 0.2 E.U./dL (0.2)
[2022-06-13 17:56] LABS: RBC Urine 5-10/HPF (0-5/HPF); WBC Urine 5-10/HPF (0-5/HPF)
[2022-06-13 17:57] LABS: Amorphous Sediment Urine 1+; Bacteria Urine Moderate (10-30)
[2022-06-13 18:12] LABS: Add Manual Diff / Slide Review NO; Basophils Absolute Auto 0 /uL (0-100); Basophils Percent Auto 0.3 % (0-2); Eosinophils Absolute Auto 0 /uL (0-450); Eosinophils Percent Auto 0.3 % (2-4); Hemoglobin 13.2 g/dL (13.5-17.5); Lymphocytes Absolute Auto 800 /uL (1100-4500); Lymphocytes Percent Auto 7.3 % (25-40); Mean Corpuscular HGB Conc 33.7 % (30-36); Mean Corpuscular Hemoglobin 30.3 PG (26-34); Mean Corpuscular Volume 89.9 fL (80-100); Monocytes Absolute Auto 800 /uL (0-900); Monocytes Percent Auto 7.4 % (3-14); Neutrophils Absolute Auto 9400 /uL (1500-7000); Neutrophils Percent Auto 84.7 % (50-75); Platelet Count 232 X10^3/uL (150-400); Red Blood Cell Count 4.34 X10^6/uL (4.5-5.9); White Blood Cell Count 11.1 X10^3/uL (4.5-11.0)
[2022-06-13] MEDS: SODIUM CHLORIDE 0.9% 1,000 ML 1000 ML IV (18:27)
[2022-06-13] MEDS: ERTAPENEM 1 GM in SODIUM CHLORIDE 0.9% 100 ML IV (18:27)
[2022-06-13 18:34] LABS: Lactate (Lactic Acid) 1.3 mmol/L (0.7-2.1)
[2022-06-13 18:35] LABS: Alanine Aminotransferase 26 IU/L (<50); Albumin 4.3 g/dL (3.5-5.0); Albumin Globulin Ratio 1.2 (1.0-2.8); Alkaline Phosphatase 96 U/L (38-126); Aspartate Aminotransferase 31 IU/L (17-59); BUN Creatinine Ratio 32.9 (6-22); Bilirubin Total 1.6 mg/dL (0.2-1.3); Blood Urea Nitrogen 28 mg/dL (9-20); Calcium 9.4 mg/dL (8.4-10.2); Carbon Dioxide 27 mmol/L (22-32); Chloride 102 mmol/L (98-107); Estimated Glomerular Filt Rate > 60 mL/min (>60); Globulin 3.6 g/dL (1.7-4.1); Glucose 111 mg/dL (80-110); HEMOLYSIS < 15 (0-50); Potassium 5.2 mmol/L (3.4-5.1); Sodium 138 mmol/L (137-145); Total Protein 7.9 g/dL (6.3-8.2)
[2022-06-13 18:52] LABS: Procalcitonin 0.06 ng/mL (<0.5)
[2022-06-13 19:05] LABS: C-Reactive Protein Quant 0.6 mg/dL (<1.0)
[2022-06-13] MEDS: cefTRIAXone 1,000 MG in SODIUM CHLORIDE 0.9% 100 ML 200 MG IV (19:32)
--- NOTE | 2022-06-13 19:40 | DI.US.S_ITS ---
PROCEDURE: US RENAL COMPLETE INDICATIONS: HYDRONEPHROSIS TECHNIQUE: Real-time scanning was performed of the kidneys and bladder, with image documentation. COMPARISON: None. FINDINGS: Kidneys: Kidneys are normal in size. Right kidney measures 11.3 cm long; left kidney measures 12.5 cm long. Right renal cortical thickness is 1.4 cm; left renal cortical thickness is 1.6 cm. Renal cortical echotexture is normal. No hydronephrosis or nephrolithiasis. No suspicious solid mass lesions. 2 simple appearing cysts are seen in right kidney measures 3.8 x 3 x 2.4 cm in size in lower pole right kidney and 2 x 1.8 x 2.4 cm in upper pole right kidney. Bladder: Mack catheter is seen in decompressed urinary bladder. Miscellaneous: No free pelvic fluid. IMPRESSION: Simple right renal cysts as above. No nephrolithiasis or hydronephrosis. No gross solid appearing renal lesion. Mack catheter in decompressed urinary bladder. Dictated by: Burton Mandujano M.D. on 06/13/2022 at 21:16 Approved by: Burton Mandujano M.D. on 06/13/2022 at 21:18
--- NOTE | 2022-06-13 20:46 | PM.HP.1 ---
History of Present Illness History of Present Illness Date Patient Seen: 06/13/22 Chief complaint: urinary catheter is plugged Narrative: This is an 86-year-old male who presents to the emergency department with his son with reported urinary catheter obstruction.? He was seen 3 days ago in the emergency department for Mack catheter problem with obstruction, his Mack catheter had been in for 2 weeks at that time, did not have signs or symptoms of infection, his urinary catheter was flushed and he was discharged home there was no urine evaluation that day.? He is brought in today for altered mental status, chills, concern for urinary tract infection with suprapubic tenderness.? He has history of UTIs, wears a catheter for BPH and prostate cancer and is chronically indwelling.? Patient's primary care provider is Dr. Melton.? Review of urine cultures below. Patient went to his extension service advisor's appointment this morning, was getting clearance for upcoming urogenital surgery to ?remove his Mack catheter ?.? Patient is not on anticoagulants, has not had recent antibiotics, currently on tamsulosin b.i.d., simvastatin, lisinopril and baby aspirin daily.? Patient reports feeling ill, fatigued, he was diaphoretic during his cardiology appointment this morning and encouraged to go to the emergency department for evaluation.? Patient reports having chills.? Patient's son states that he was diaphoretic during his appointment at the extension service advisor office today. Patient came to the ER for further evaluation and found to be in sepsis secondary to UTI. Mack catheter was not flushing, ER replaced Mack, IV fluid challenge help, urine output is adequate. Called for admission for sepsis secondary to UTI. When I saw the patient patient seems to be interactive, able to make a reasonable conversation even though he has some hard of hearing issues., son is at bedside confirmed most of the details as mentioned above. Patient denies any abdominal pain, fevers or chills at this time. Able to tolerate diet okay. Patient History Medical History Asthma Chronic indwelling Mack catheter Coronary artery disease Depression Elevated PSA Excessive cerumen in both ear canals Hyperlipidemia Hypertension Lower urinary tract symptoms (LUTS) Osteoporosis Prostate cancer Retention of urine Screen for colon cancer Surgical History History of colon polyps (~2007) S/P CABG x 3 (~2006) Family & Social History Family History Father Stroke Safety & Behavioral: Feels Safe in Current Yes Environment Been Physically Hurt or No Threatened By a Person Tobacco & Substance use: Smoking Status Never smoker Substance Use Type does not use Comment: Patient has 3 children, lives with his son who is at bedside. 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 Meds Home Medications and Allergies Home Medications Medication Instructions Recorded Confirmed Type ASPIRIN (#ASPIRIN) 81 mg PO QDAY ##0 08/22/11 03/13/22 History bicalutamide 50 mg tablet (Casodex) 50 mg PO DAILY #30 tabs 08/30/21 03/13/22 Rx simvastatin 40 mg tablet See Rx Instructions .Route 09/28/21 03/13/22 Rx .COMPLEX #90 tabs tamsulosin 0.4 mg capsule 0.8 mg PO DAILY #60 caps 09/29/21 03/13/22 Rx calcium carbonate 200 mg calcium 200 mg PO TID 10/05/21 03/13/22 History (500 mg) chewable tablet (Tums) lisinopril 10 mg tablet See Rx Instructions .Route 12/04/21 03/13/22 Rx .COMPLEX #180 tabs cholecalciferol (vitamin D3) 1,250 1,250 mcg PO QWEEK #8 caps 01/15/22 03/13/22 Rx mcg (50,000 unit) capsule cefdinir 300 mg capsule 300 mg PO BID #20 caps 03/15/22 Rx amoxicillin 500 mg-potassium 1 tab PO TID #30 tabs 05/01/22 Rx clavulanate 125 mg tablet (Augmentin) Allergies Allergy/AdvReac Type Severity Reaction Status Date / Time ciprofloxacin Allergy Unknown DIZZY/LIGHT Verified 06/13/22 16:33 HEADED/CONF USION/AGITA TION Sulfa (Sulfonamide Allergy Unknown Verified 06/13/22 16:33 Antibiotics) Review of Systems Review of Systems Narrative: All organ systems reviewed, negative other than as mentioned above in HPI. Exam Vital Signs (past 8 hours): - 06/13/22 16:28 Temperature 96.7 F L Pulse Rate 87 Respiratory Rate 16 Blood Pressure 164/86 H Pulse Oximetry 98 Oxygen Delivery Method Room Air Oxygen Delivery Method Room Air Narrative Exam Narrative: Alert oriented, able to make a reasonable conversation, hard of hearing, mild abdominal discomfort on deep palpation in the suprapubic area, no organomegaly, bowel sounds heard okay. Air entry bilateral lung fernando clear, few basal crackles, trace pedal edema. Cardiovascular, constitutional, HEENT, respiratory, GI, , skin, neuro, psych exam done, negative. Mack catheter is in place. Objective Labs Result Diagrams: 06/13/22 18:00 06/13/22 18:00 Labs: Laboratory Results - last 24 hr 06/13/22 06/13/22 06/13/22 17:26 18:00 18:00 WBC 11.1 H RBC 4.34 L Hgb 13.2 L Hct 39.0 L MCV 89.9 MCH 30.3 MCHC 33.7 RDW 13.0 Plt Count 232 Neut % (Auto) 84.7 H Lymph % (Auto) 7.3 L [place] % (Auto) 7.4 Eos % (Auto) 0.3 L Baso % (Auto) 0.3 Neut # (Auto) 9400 H Lymph # (Auto) 800 L [place] # (Auto) 800 Eos # (Auto) 0 Baso # (Auto) 0 Sodium 138 Potassium 5.2 H Chloride 102 Carbon Dioxide 27 BUN 28 H Creatinine 0.85 Estimated GFR > 60 BUN/Creatinine Ratio 32.9 H Glucose 111 H Lactate Calcium 9.4 Total Bilirubin 1.6 H AST 31 ALT 26 Alkaline Phosphatase 96 C-Reactive Protein 0.6 Total Protein 7.9 Albumin 4.3 Globulin 3.6 Albumin/Globulin Ratio 1.2 Procalcitonin 0.06 Urine Color Yellow Urine Appearance Cloudy Urine pH 7.0 Ur Specific [place] 1.010 Urine Protein 1+ H Urine Glucose (UA) Negative Urine Ketones Negative Urine Occult Blood 3+ H Urine Nitrate Positive H Urine Bilirubin Negative Urine Urobilinogen 0.2 Ur Leukocyte Esterase 3+ H Urine RBC 5-10/hpf H Urine WBC 5-10/hpf H Amorphous Sediment 1+ Urine Bacteria Moderate (10-30) H Ur Culture Indicated? Culture not indicate 06/13/22 18:00 WBC RBC Hgb Hct MCV MCH MCHC RDW Plt Count Neut % (Auto) Lymph % (Auto) [place] % (Auto) Eos % (Auto) Baso % (Auto) Neut # (Auto) Lymph # (Auto) [place] # (Auto) Eos # (Auto) Baso # (Auto) Sodium Potassium Chloride Carbon Dioxide BUN Creatinine Estimated GFR BUN/Creatinine Ratio Glucose Lactate 1.3 Calcium Total Bilirubin AST ALT Alkaline Phosphatase C-Reactive Protein Total Protein Albumin Globulin Albumin/Globulin Ratio Procalcitonin Urine Color Urine Appearance Urine pH Ur Specific [place] Urine Protein Urine Glucose (UA) Urine Ketones Urine Occult Blood Urine Nitrate Urine Bilirubin Urine Urobilinogen Ur Leukocyte Esterase Urine RBC Urine WBC Amorphous Sediment Urine Bacteria Ur Culture Indicated? Assessment & Plan Assessment and plan (1) Sepsis: Qualifiers: Sepsis acute organ dysfunction status: with acute organ dysfunction Sepsis type: sepsis due to unspecified organism Severe sepsis acute organ dysfunction type: unspecified Status: Acute (2) Acute cystitis with hematuria: Status: Acute (3) Mack catheter problem: Status: Acute Assessment & Plan narrative: Sepsis secondary to UTI in setting of indwelling Mack catheter -history of drug-resistant organisms UTI in the past, discussed with the pharmacyBlake recommended at this time -continue IV fluids, cultures pending, final antibiotics once cultures are back Indwelling Mack catheter presented with obstruction, replaced -now draining appropriately -urology consultation as an outpatient Other medical conditions Benign essential hypertension Hyperlipidemia Prostate cancer -urology following Lovenox for DVT prophylaxis, ppi for GI prophylaxis Patient is full code Care plan discussed with the patient and family members at bedside, answered all questions Time Spent With Patient Critical Care time: I spent a total of [] minutes of critical care time on this patient's care today; this time is exclusive of procedural time.
[2022-06-13 21:35] VITALS: BP 136/84; PULSE 83; RESP 20; TEMP 36.3; O2SAT 100
[2022-06-13 21:37] LABS: COVID19 -Nasal RAPID Negative (Negative)
[2022-06-13 21:51] VITALS: BMI 24.4
[2022-06-13] MEDS: SODIUM CHLORIDE 0.45% 1,000 ML 100 ML IV (22:04)
[2022-06-14] VITALS (7 sets, daily range): BP systolic 106–145; BP diastolic 59–83; PULSE 61–75; RESP 12–20; TEMP 35.8–36.3; O2SAT 95–99
--- NOTE | 2022-06-14 02:22 | PC.ADMIT ---
[facility] [place] Admission Note: The patient,Isaias Patel,86 y/o, was given written information regarding hospital policies, unit procedures and contact persons. Patient's smoking status: Former smoker. Vital Signs - 8 hr 06/13/22 21:35 06/14/22 02:13 06/14/22 02:18 Temperature 97.4 F L 97.1 F L Pulse Rate 83 73 Respiratory Rate 20 12 Blood Pressure 136/84 106/68 Pulse Oximetry 100 95 Oxygen Delivery Method Room Air Oxygen Flow Rate 0 0 Patient admitted at 2135 from ER per stretcher. Is alert; oriented only to name, birthdate and place. Breath sounds CTA with RA sat of 95%. HRR w/telemetry reading of SR w/1st degree AVB. Denies nausea. BT present and abdomen is soft. Indwelling catheter is patent; urine is clear yellow. Is able to turn himself in bed. Gait not assessed and unknown if he uses an assistive device at home (no family present at this time). Trace bilateral pedal edema. Bilateral calf SCD's were applied during admission. Fall risk score is high and bed alarm is activated. Denies pain. Oriented to call light and bed controls.
[2022-06-14] MEDS: PIPERACILLIN/TAZO 3.375 GM in SODIUM CHLORIDE 0.9% 100 ML IV ×3 (06:17→22:02)
[2022-06-14 08:02] LABS: Add Manual Diff / Slide Review NO; Basophils Absolute Auto 0 /uL (0-100); Basophils Percent Auto 0.4 % (0-2); Eosinophils Absolute Auto 300 /uL (0-450); Eosinophils Percent Auto 4.6 % (2-4); Hematocrit 35.7 % (41-53); Lymphocytes Absolute Auto 1400 /uL (1100-4500); Mean Corpuscular HGB Conc 33.7 % (30-36); Mean Corpuscular Hemoglobin 30.5 PG (26-34); Mean Corpuscular Volume 90.6 fL (80-100); Monocytes Absolute Auto 700 /uL (0-900); Monocytes Percent Auto 9.6 % (3-14); Neutrophils Absolute Auto 4700 /uL (1500-7000); Neutrophils Percent Auto 65.4 % (50-75); Platelet Count 229 X10^3/uL (150-400); Red Blood Cell Count 3.94 X10^6/uL (4.5-5.9); Red Cell Distribution Width 13.2 % (11.6-14.8); White Blood Cell Count 7.2 X10^3/uL (4.5-11.0)
[2022-06-14 08:21] LABS: Alanine Aminotransferase 21 IU/L (<50); Albumin 3.4 g/dL (3.5-5.0); Albumin Globulin Ratio 1.1 (1.0-2.8); Alkaline Phosphatase 86 U/L (38-126); Aspartate Aminotransferase 27 IU/L (17-59); BUN Creatinine Ratio 25.3 (6-22); Bilirubin Total 0.9 mg/dL (0.2-1.3); Blood Urea Nitrogen 20 mg/dL (9-20); C-Reactive Protein Quant 0.6 mg/dL (<1.0); Calcium 8.7 mg/dL (8.4-10.2); Carbon Dioxide 26 mmol/L (22-32); Chloride 106 mmol/L (98-107); Estimated Glomerular Filt Rate > 60 mL/min (>60); Globulin 3.1 g/dL (1.7-4.1); Glucose 94 mg/dL (80-110); HEMOLYSIS < 15 (0-50); Potassium 4.5 mmol/L (3.4-5.1); Sodium 139 mmol/L (137-145); Total Protein 6.5 g/dL (6.3-8.2)
[2022-06-14] MEDS: ASPIRIN EC 81 MG TABLET PO (08:34)
[2022-06-14] MEDS: lisinopriL 10 MG TABLET PO (08:34)
[2022-06-14] MEDS: SODIUM CHLORIDE 0.45% 1,000 ML 100 ML IV ×2 (08:35→18:50)
[2022-06-14] MEDS: TAMSULOSIN 0.4 MG CAPSULE 0.8 MG PO (08:35)
--- NOTE | 2022-06-14 10:44 | CM.DANOTE ---
Initial Discharge Assessment Note: Case reviewed, met with patient who is somewhat cognitively impaired, unsure of baseline. Introduced self and role. Payer: [facility] and self pay PCP: Dr Mumtaz Melton 86 year old male admitted yesterday with urinary catheter blockage and diagnosed with sepsis, UTI and placed on Zosyn IV. Awaiting cultures. Pt lives in [place] with his Flori and their son Lee. Per son, spouse has parkinson's disease. Son reports patient has been diagnosed with dementia. Spouse and son assist him in all ADLs. He is ambulatory but could use a walker the son states. He further reports that Dr Walker manages the miller catheter and he has had it for 7-8 months and is replaced monthly by urology. Son states that Home Health has not been involved but would be interested in having a HH RN for miller management. Will obtain orders. Son will come visit this afternoon. Plan: Return home to care of son and and patient's . Home Health RN, PT/OT, will send referral. CHETAN Discharge Planning/Care Management CM Discharge Assessment Start: 06/14/22 10:37 Freq: Status: Active Protocol: Document 06/14/22 10:37 (Rec: 06/14/22 10:44 [id number]) Discharge Planning Assessment Assigned Logging Engineer Chasity Mota RN/DCP Advance Directives? No History Provided By Patient,Medical Record Prior Living Arrangements House Household Members spouse,family,children Type of transporation used prior to Relies on Others admit Independent with ADL's Yes Is patient alert and oriented? Yes Needs Assistance With Bathing,Meal Prep,Managing Medications,Home Chores / Shopping Caregiver for Another No Barriers to Discharge No Discharge Plan Home Additional Comment Most likely need HH for miller catheter management Whiteboard Updated in Patient Room with Yes name and ext. # of Logging Engineer Review Status In Process Next Review Type Continued Stay Review
--- NOTE | 2022-06-14 12:25 | DI.ECHO.S_ITS ---
[facility] +---------+ : : [address] : : : : [id number] : : : : Phone: [phone] Echocardiogram Report + + :Name: DELISA DAVIS Study Date: 06/14/2022 Height: 72 in : :[facility] ReadingLocation: Weight: 180 lb : : Gender: Male BSA: 2.0 m2 : :: 1935 Age: 86 yrs BP: 116/59 mmHg: :Reason For Study: CORONARY ARTERY DISEASE, HYPERTENSION : :Ordering Physician: AJIT, : :NARAYAN Performed By: Carmen Perez : :Referring: NARAYAN FONG : + + Interpretation Summary Normal sinus rhythm. Normal LV size. There is moderate concentric left ventricular hypertrophy with ejection fraction of 60-65%. Moderate left atrial enlargement. Otherwise normal chamber sizes. Aortic valve is a trileaflet structure. Aortic valve leaflets are moderately thickened and calcified with moderately reduced leaflet excursion. Left coronary leaflet demonstrates best movement. There is moderate associated aortic stenosis with peak velocity of 3 m/s and mean gradient of 21 millimeters mercury. Calculated valve area is 1.2cmA? which is consistent with moderate aortic stenosis. There is mild-moderate associated aortic regurgitation. Pressure half-time is 605 ms which is more consistent with mild aortic regurgitation. There is mild tricuspid regurgitation with pulmonary artery systolic pressure estimated at 42 mm hg assuming RA pressure of 10 mm hg. No prior study available for comparison. Procedure: A two-dimensional transthoracic echocardiogram with color flow and Doppler was performed. The study quality was technically adequate. There is no prior echocardiogram noted for this patient. The patient was in sinus rhythm with heart rates between 63-68 bpm during the exam. Left Ventricle: The left ventricle is normal in size. There is moderate concentric left ventricular hypertrophy. The ejection fraction is estimated to be 50-55%. Right Ventricle: The right ventricle is normal size. Right ventricular systolic function is mildly reduced. Atria: The left atrium is moderately dilated. Right atrial size is normal. There is no Doppler evidence for an interatrial shunt. Mitral Valve: The mitral valve is normal in structure and function. There is mild mitral regurgitation. Aortic Valve: The aortic valve is moderately calcified. The aortic valve is trileaflet. The peak aortic velocity is 3.0 m/sec. The aortic valve mean gradient is 21 mmHg. The calculated aortic valve area is 1.2 cm2. There is moderate aortic stenosis. There is mild to moderate aortic regurgitation. Tricuspid Valve: The tricuspid valve is normal. There is mild to moderate tricuspid regurgitation. Right ventricular systolic pressure is estimated to be 32 mmHg plus the clinically estimated CVP which cannot be estimated on this exam. Pulmonic Valve: The pulmonic valve leaflets are thin and pliable; valve motion is normal. There is mild pulmonic regurgitation. Great Vessels: The aortic root is normal size. The dimensions of the ascending aorta are normal. The inferior vena cava was not well visualized. Pericardium/ Pleura There is no pericardial effusion. There is no pleural effusion. MMode/2D Measurements & Calculations LVIDd: 4.9 cm LVOT diam: 2.4 cm LVIDs: 3.2 cm Ao root diam: 3.9 cm FS: 34.7 % asc Aorta Diam: 3.7 cm EPSS: 0.89 cm Ao Arch Diam (Prox Trans): 3.0 cm IVSd: 1.4 cm LVPWd: 1.5 cm LV concepcion. diameter/BSA (cm/m^2): 2.4 LV sys. diameter/BSA (cm/m^2): 1.6 LA A2 area: 28.1 cm2 RA long axis: 5.4 cm LA A4 area: 19.4 cm2 RA area: 16.8 cm2 LA length (vol): 5.2 cm RA vol: 44.9 ml LA vol: 89.4 ml RA : 22.1 ml/m2 LA vol index: 43.9 ml/m2 RVD1 (basal): 3.9 cm TAPSE: 1.5 cm Doppler Measurements & Calculations Ao V2 max: 299.3 cm/sec LVOT Max Suresh: 79.1 cm/sec Ao V2 mean: 211.8 cm/sec LV V1 max P.5 mmHg Ao max P.8 mmHg LV V1 VTI: 17.2 cm Ao mean P.2 mmHg RENATA(I,D): 1.3 cm2 Ao V2 VTI: 59.4 cm RENATA(V,D): 1.2 cm2 sev ratio: 0.29 RENATA indexed to BSA (cm^2/m^2): 0.65 AI P1/2t: 610.9 msec AI dec slope: 214.3 cm/sec2 MV E max suresh: 59.8 cm/sec TR max suresh: 282.5 cm/sec MV A max suresh: 43.0 cm/sec TR max P.9 mmHg MV E/A: 1.4 PA V2 max: 70.8 cm/sec Med Peak E' Suresh: 4.9 cm/sec PA V2 mean: 49.3 cm/sec E/E' med: 12.2 PA mean P.1 mmHg Lat Peak E' Suresh: 6.7 cm/sec PA pr(Accel): 55.0 mmHg E/E' lat: 8.9 E/e' average: 10.6 MV dec time: 0.16 sec SV(LVOT): 78.6 ml Electronically signed by: Mary Wood M.D. on Reading Physician:06/14/2022 03:26 PM
--- NOTE | 2022-06-14 12:40 | P.PN_ITS ---
Subjective Subjective Interval history: This is an 86-year-old male who presented to the emergency department with his son with reported urinary catheter obstruction.? He was seen 3 days prior in the emergency department for Mack catheter problem with obstruction, his Mack catheter had been in for 2 weeks at that time, did not have signs or symptoms of infection, his urinary catheter was flushed and he was discharged home there was no urine evaluation that day.? He is brought in yesterday for altered mental status, chills, concern for urinary tract infection with suprapubic tenderness.? Urine culture is positive with Gram-positive cocci and patient is on Pip/Tazo intravenous medication. There was also a concern for sepsis however blood cultures are still pending. Patient feeling better today no fever or chills. No decrease in mentation. No discomfort. Exam Vital Signs (past 8 hours): - 06/14/22 05:25 06/14/22 08:34 06/14/22 08:44 Temperature 97.4 F L 96.5 F L Pulse Rate 68 65 61 Respiratory Rate 15 16 Blood Pressure 116/59 L 132/68 132/68 Pulse Oximetry 97 99 Oxygen Flow Rate 0 0 06/14/22 12:22 Temperature 96.9 F L Pulse Rate 63 Respiratory Rate 18 Blood Pressure 126/71 Pulse Oximetry 95 Oxygen Flow Rate 0 Oxygen Delivery Method Room Air Oxygen Flow Rate 0 Narrative Exam Narrative: General: Alert, appears in no acute medical distress. Obvious decreased hearing. Cardiovascular: Heart sounds normal. Respiratory: Clear to auscultation. : Mack in place draining well. Objective Labs Result Diagrams: 06/15/22 06:02 06/15/22 06:02 Labs: Laboratory Results - last 24 hr 06/13/22 06/13/22 06/13/22 17:26 18:00 18:00 WBC 11.1 H RBC 4.34 L Hgb 13.2 L Hct 39.0 L MCV 89.9 MCH 30.3 MCHC 33.7 RDW 13.0 Plt Count 232 Neut % (Auto) 84.7 H Lymph % (Auto) 7.3 L [place] % (Auto) 7.4 Eos % (Auto) 0.3 L Baso % (Auto) 0.3 Neut # (Auto) 9400 H Lymph # (Auto) 800 L [place] # (Auto) 800 Eos # (Auto) 0 Baso # (Auto) 0 Sodium 138 Potassium 5.2 H Chloride 102 Carbon Dioxide 27 BUN 28 H Creatinine 0.85 Estimated GFR > 60 BUN/Creatinine Ratio 32.9 H Glucose 111 H Lactate Calcium 9.4 Total Bilirubin 1.6 H AST 31 ALT 26 Alkaline Phosphatase 96 C-Reactive Protein 0.6 Total Protein 7.9 Albumin 4.3 Globulin 3.6 Albumin/Globulin Ratio 1.2 Procalcitonin 0.06 Urine Color Yellow Urine Appearance Cloudy Urine pH 7.0 Ur Specific [place] 1.010 Urine Protein 1+ H Urine Glucose (UA) Negative Urine Ketones Negative Urine Occult Blood 3+ H Urine Nitrate Positive H Urine Bilirubin Negative Urine Urobilinogen 0.2 Ur Leukocyte Esterase 3+ H Urine RBC 5-10/hpf H Urine WBC 5-10/hpf H Amorphous Sediment 1+ Urine Bacteria Moderate (10-30) H Ur Culture Indicated? Culture not indicate SARS-CoV-2 (PCR) 06/13/22 06/13/22 06/14/22 18:00 20:30 07:30 WBC 7.2 RBC 3.94 L Hgb 12.0 L Hct 35.7 L MCV 90.6 MCH 30.5 MCHC 33.7 RDW 13.2 Plt Count 229 Neut % (Auto) 65.4 Lymph % (Auto) 20.0 L [place] % (Auto) 9.6 Eos % (Auto) 4.6 H Baso % (Auto) 0.4 Neut # (Auto) 4700 Lymph # (Auto) 1400 [place] # (Auto) 700 Eos # (Auto) 300 Baso # (Auto) 0 Sodium Potassium Chloride Carbon Dioxide BUN Creatinine Estimated GFR BUN/Creatinine Ratio Glucose Lactate 1.3 Calcium Total Bilirubin AST ALT Alkaline Phosphatase C-Reactive Protein Total Protein Albumin Globulin Albumin/Globulin Ratio Procalcitonin Urine Color Urine Appearance Urine pH Ur Specific [place] Urine Protein Urine Glucose (UA) Urine Ketones Urine Occult Blood Urine Nitrate Urine Bilirubin Urine Urobilinogen Ur Leukocyte Esterase Urine RBC Urine WBC Amorphous Sediment Urine Bacteria Ur Culture Indicated? SARS-CoV-2 (PCR) Negative 06/14/22 07:30 WBC RBC Hgb Hct MCV MCH MCHC RDW Plt Count Neut % (Auto) Lymph % (Auto) [place] % (Auto) Eos % (Auto) Baso % (Auto) Neut # (Auto) Lymph # (Auto) [place] # (Auto) Eos # (Auto) Baso # (Auto) Sodium 139 Potassium 4.5 Chloride 106 Carbon Dioxide 26 BUN 20 Creatinine 0.79 Estimated GFR > 60 BUN/Creatinine Ratio 25.3 H Glucose 94 Lactate Calcium 8.7 Total Bilirubin 0.9 AST 27 ALT 21 Alkaline Phosphatase 86 C-Reactive Protein 0.6 Total Protein 6.5 Albumin 3.4 L Globulin 3.1 Albumin/Globulin Ratio 1.1 Procalcitonin Urine Color Urine Appearance Urine pH Ur Specific [place] Urine Protein Urine Glucose (UA) Urine Ketones Urine Occult Blood Urine Nitrate Urine Bilirubin Urine Urobilinogen Ur Leukocyte Esterase Urine RBC Urine WBC Amorphous Sediment Urine Bacteria Ur Culture Indicated? 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 Sepsis concern. Blood cultures are still pending. Patient clinically improving. ? ? ? 2. Acute cystitis with hematuria. Urine culture is positive. Currently on Zosyn. Continue and await identification of bacteria and sensitivities. 3. Indwelling Mack catheter with obstruction. Obstruction has been corrected and catheter replaced. Will need follow-up with Urology. 4. Hypertension. Adequately controlled with current medication. Continue. 5. Hyperlipidemia. Continue home medication.. 6. Prostate cancer. Urology is following as an outpatient. Follow labs and clinically. ? ? Lovenox for DVT prophylaxis. PPI for GI prophylaxis Patient is full code Substitute decision maker: Patient's son with whom he lives. Time Spent With Patient Critical Care time: I spent a total of [] minutes of critical care time on this patient's care today; this time is exclusive of procedural time.
[2022-06-15] VITALS (8 sets, daily range): BP systolic 140–180; BP diastolic 70–86; PULSE 60–71; RESP 18–20; TEMP 35.8–37; O2SAT 95–97
[2022-06-15] MEDS: SODIUM CHLORIDE 0.45% 1,000 ML 100 ML IV (04:23)
[2022-06-15] MEDS: PIPERACILLIN/TAZO 3.375 GM in SODIUM CHLORIDE 0.9% 100 ML IV ×3 (05:49→21:49)
[2022-06-15 06:40] LABS: Add Manual Diff / Slide Review NO; Basophils Absolute Auto 100 /uL (0-100); Basophils Percent Auto 0.9 % (0-2); Eosinophils Absolute Auto 500 /uL (0-450); Eosinophils Percent Auto 7.1 % (2-4); Hematocrit 35.9 % (41-53); Hemoglobin 12.2 g/dL (13.5-17.5); Lymphocytes Absolute Auto 1400 /uL (1100-4500); Lymphocytes Percent Auto 19.7 % (25-40); Mean Corpuscular HGB Conc 33.9 % (30-36); Mean Corpuscular Hemoglobin 30.4 PG (26-34); Mean Corpuscular Volume 89.9 fL (80-100); Monocytes Absolute Auto 700 /uL (0-900); Monocytes Percent Auto 9.6 % (3-14); Neutrophils Absolute Auto 4600 /uL (1500-7000); Neutrophils Percent Auto 62.7 % (50-75); Platelet Count 210 X10^3/uL (150-400); Red Blood Cell Count 3.99 X10^6/uL (4.5-5.9); Red Cell Distribution Width 13.2 % (11.6-14.8); White Blood Cell Count 7.3 X10^3/uL (4.5-11.0)
[2022-06-15 06:47] LABS: Alanine Aminotransferase 18 IU/L (<50); Albumin 3.4 g/dL (3.5-5.0); Albumin Globulin Ratio 1.1 (1.0-2.8); Alkaline Phosphatase 92 U/L (38-126); Aspartate Aminotransferase 24 IU/L (17-59); Bilirubin Total 0.8 mg/dL (0.2-1.3); Blood Urea Nitrogen 18 mg/dL (9-20); C-Reactive Protein Quant < 0.5 mg/dL (<1.0); Calcium 8.6 mg/dL (8.4-10.2); Carbon Dioxide 24 mmol/L (22-32); Chloride 107 mmol/L (98-107); Estimated Glomerular Filt Rate > 60 mL/min (>60); Globulin 3.2 g/dL (1.7-4.1); Glucose 98 mg/dL (80-110); HEMOLYSIS < 15 (0-50); Potassium 4.4 mmol/L (3.4-5.1); Sodium 139 mmol/L (137-145); Total Protein 6.6 g/dL (6.3-8.2)
[2022-06-15] MEDS: TAMSULOSIN 0.4 MG CAPSULE 0.8 MG PO (08:35)
[2022-06-15] MEDS: lisinopriL 10 MG TABLET PO (08:35)
[2022-06-15] MEDS: ASPIRIN EC 81 MG TABLET PO (08:36)
--- NOTE | 2022-06-15 09:12 | PM.PN.1 ---
Subjective Subjective Interval history: This is an 86-year-old male who presented to the emergency department with his son with reported urinary catheter obstruction.? He was seen 3 days prior to this admission in the emergency department for Mack catheter problem with obstruction, his Mack catheter had been in for 2 weeks at that time, did not have signs or symptoms of infection, his urinary catheter was flushed and he was discharged home. There was no urine evaluation that day.? On this admission, he presented to the ER with altered mental status, chills, concern for urinary tract infection with suprapubic tenderness.? Patient feeling well today, eating and drinking well. He has been afebrile. Slight increase in blood pressure and will not change medication just monitor at this time and stop IV fluids. Urine culture remains only as Gram-positive cocci with no identification but patient responding well to antibiotics. Exam Vital Signs (past 8 hours): - 06/15/22 04:31 06/15/22 07:57 06/15/22 08:35 Temperature 97.6 F 96.4 F L Pulse Rate 61 60 60 Respiratory Rate 18 18 Blood Pressure 142/70 H 152/77 H 155/77 H Pulse Oximetry 97 96 Oxygen Flow Rate 0 0 Oxygen Delivery Method Room Air Oxygen Flow Rate 0 Narrative Exam Narrative: General: Alert, appears in no acute medical distress. Obvious decreased hearing. Cardiovascular: Heart sounds normal. Respiratory: Clear to auscultation. : Mack in place draining well. Objective Labs Result Diagrams: 06/15/22 06:02 06/15/22 06:02 Labs: Laboratory Results - last 24 hr 06/15/22 06/15/22 06:02 06:02 WBC 7.3 RBC 3.99 L Hgb 12.2 L Hct 35.9 L MCV 89.9 MCH 30.4 MCHC 33.9 RDW 13.2 Plt Count 210 Neut % (Auto) 62.7 Lymph % (Auto) 19.7 L Campbell % (Auto) 9.6 Eos % (Auto) 7.1 H Baso % (Auto) 0.9 Neut # (Auto) 4600 Lymph # (Auto) 1400 Campbell # (Auto) 700 Eos # (Auto) 500 H Baso # (Auto) 100 Sodium 139 Potassium 4.4 Chloride 107 Carbon Dioxide 24 BUN 18 Creatinine 0.90 Estimated GFR > 60 BUN/Creatinine Ratio 20.0 Glucose 98 Calcium 8.6 Total Bilirubin 0.8 AST 24 ALT 18 Alkaline Phosphatase 92 C-Reactive Protein < 0.5 Total Protein 6.6 Albumin 3.4 L Globulin 3.2 Albumin/Globulin Ratio 1.1 PFS Medical History Asthma Chronic indwelling Mack catheter Coronary artery disease Depression Elevated PSA Excessive cerumen in both ear canals Hyperlipidemia Hypertension Lower urinary tract symptoms (LUTS) Osteoporosis Prostate cancer Retention of urine Screen for colon cancer Surgical History History of colon polyps (~2007) S/P CABG x 3 (~2006) Family History Father Stroke Social History marital status: number of children: 3 household members: spouse, family and children 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 Sepsis concern.? This has been ruled out with negative cultures. ? ? ? 2.? Acute cystitis with hematuria.? Urine culture is positive.? Currently on Zosyn.? Continue and await identification of bacteria and sensitivities. Currently only identified as Gram-positive cocci. 3. Indwelling Mack catheter with obstruction.? Obstruction has been corrected and catheter replaced.? Will need follow-up with Urology as an outpatient. 4. Hypertension.? Some slight elevation today. Discontinue IV fluids. Continue to monitor blood pressure. Continue regular medication. 5. Hyperlipidemia.? Continue home medication.. 6. Prostate cancer.? Urology is following as an outpatient. Follow labs and clinically. ? ? Lovenox for DVT prophylaxis. PPI for GI prophylaxis Patient is full code Substitute decision maker:? Patient's son with whom he lives. Time Spent With Patient Critical Care time: I spent a total of [] minutes of critical care time on this patient's care today; this time is exclusive of procedural time.
[2022-06-15] MEDS: SODIUM CHLORIDE 0.9% FLUSH 10 ML IV (21:49)
[2022-06-15] MEDS: OXYCODONE IR 5 MG TABLET PO (23:52)
[2022-06-16] VITALS (7 sets, daily range): BP systolic 117–144; BP diastolic 61–80; PULSE 61–70; RESP 16–20; TEMP 35.7–36.4; O2SAT 93–99
[2022-06-16] MEDS: OXYCODONE IR 5 MG TABLET PO (05:08)
[2022-06-16] MEDS: SODIUM CHLORIDE 0.9% FLUSH 10 ML IV ×3 (05:10→22:15)
[2022-06-16] MEDS: PIPERACILLIN/TAZO 3.375 GM in SODIUM CHLORIDE 0.9% 100 ML IV ×3 (05:13→22:15)
[2022-06-16] MEDS: lisinopriL 10 MG TABLET PO (10:14)
[2022-06-16] MEDS: ASPIRIN EC 81 MG TABLET PO (10:15)
[2022-06-16] MEDS: TAMSULOSIN 0.4 MG CAPSULE 0.8 MG PO (10:15)
[2022-06-16 10:52] LABS: Add Manual Diff / Slide Review NO; Basophils Absolute Auto 100 /uL (0-100); Basophils Percent Auto 0.7 % (0-2); Eosinophils Absolute Auto 500 /uL (0-450); Eosinophils Percent Auto 6.9 % (2-4); Hematocrit 40.2 % (41-53); Hemoglobin 13.5 g/dL (13.5-17.5); Lymphocytes Absolute Auto 1200 /uL (1100-4500); Lymphocytes Percent Auto 16.9 % (25-40); Mean Corpuscular HGB Conc 33.5 % (30-36); Mean Corpuscular Hemoglobin 30.5 PG (26-34); Monocytes Absolute Auto 600 /uL (0-900); Monocytes Percent Auto 8.1 % (3-14); Neutrophils Absolute Auto 4700 /uL (1500-7000); Neutrophils Percent Auto 67.4 % (50-75); Platelet Count 223 X10^3/uL (150-400); Red Blood Cell Count 4.42 X10^6/uL (4.5-5.9); Red Cell Distribution Width 13.2 % (11.6-14.8)
[2022-06-16 11:15] LABS: BUN Creatinine Ratio 20.2 (6-22); Blood Urea Nitrogen 19 mg/dL (9-20); Calcium 9.5 mg/dL (8.4-10.2); Carbon Dioxide 29 mmol/L (22-32); Chloride 102 mmol/L (98-107); Estimated Glomerular Filt Rate > 60 mL/min (>60); Glucose 116 mg/dL (80-110); HEMOLYSIS < 15 (0-50); Sodium 141 mmol/L (137-145)
[2022-06-16 11:16] LABS: Potassium 5.9 mmol/L (3.4-5.1)
--- NOTE | 2022-06-16 14:25 | P.PN_ITS ---
Subjective Subjective Date Patient Seen: 06/16/22 Interval history: This is an 86-year-old male who presented to the emergency department with his son with reported urinary catheter obstruction.? He was seen 3 days prior to this admission in the emergency department for Mack catheter problem with obstruction, his Mack catheter had been in for 2 weeks at that time, did not have signs or symptoms of infection, his urinary catheter was flushed and he was discharged home. There was no urine evaluation that day.? On this admission, he presented to the ER with altered mental status, chills, concern for urinary tract infection with suprapubic tenderness.? Patient feeling well today, eating and drinking well. He has been afebrile. Cultures are still pending at this time with gram positive cocci, now with two organisms growing now. Continue to await speciation and sensitivites to d etermine appropriate antibotics for discharge home. Exam Vital Signs (past 8 hours): - 06/16/22 08:09 06/16/22 10:14 06/16/22 12:13 Temperature 96.2 F L 96.3 F L Pulse Rate 70 70 61 Respiratory Rate 20 20 Blood Pressure 125/70 125/70 131/77 Pulse Oximetry 96 95 Oxygen Flow Rate 0 0 Oxygen Delivery Method Room Air Oxygen Flow Rate 0 Narrative Exam Narrative: General:? Patient is well developed and well nourished, in no distress at this time. HEENT:? Normocephalic, atraumatic, extraocular muscles intact, oral pharynx is clear and mucous membranes are moist. Neck: supple and symmetric, trachea is midline, no cervical adenopathy. Negative for JVD Chest:? Normal AP diameter and contour without kyphoscoliosis, no tachypnea, equal chest rise bilaterally. Lungs:? CTA b/l no wheezing rhonchi or rales. Cardio:?RRR no m/r/g. Abdomen: S NT ND. No CVA tenderness. Musculoskeletal:? Muscle strength and tone are equal within normal limits, no deformity. Extremities: No edema or joint effusions. No cyanosis or clubbing. Neuro:? Alert, sensation to touch intact in all extremities, no gross deficits noted of cranial nerves. Psych:? Patient has a well-kept appearance, appropriate affect, mental status attitude thought context and judgment are appropriate for age. Objective Labs Result Diagrams: 06/16/22 10:30 06/16/22 10:30 Labs: Laboratory Results - last 24 hr 06/16/22 06/16/22 10:30 10:30 WBC 7.0 RBC 4.42 L Hgb 13.5 Hct 40.2 L MCV 91.0 MCH 30.5 MCHC 33.5 RDW 13.2 Plt Count 223 Neut % (Auto) 67.4 Lymph % (Auto) 16.9 L Preston % (Auto) 8.1 Eos % (Auto) 6.9 H Baso % (Auto) 0.7 Neut # (Auto) 4700 Lymph # (Auto) 1200 Preston # (Auto) 600 Eos # (Auto) 500 H Baso # (Auto) 100 Sodium 141 Potassium 5.9 H D Chloride 102 Carbon Dioxide 29 BUN 19 Creatinine 0.94 Estimated GFR > 60 BUN/Creatinine Ratio 20.2 Glucose 116 H Calcium 9.5 PFSH Medical History Asthma Chronic indwelling Mack catheter Coronary artery disease Depression Elevated PSA Excessive cerumen in both ear canals Hyperlipidemia Hypertension Lower urinary tract symptoms (LUTS) Osteoporosis Prostate cancer Retention of urine Screen for colon cancer Surgical History History of colon polyps (~2007) S/P CABG x 3 (~2006) Family History Father Stroke Social History marital status: number of children: 3 household members: spouse, family and children 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 Sepsis concern.? This has been ruled out given SOFA score <2. ? ? ? 2.? Acute cystitis with hematuria.? Urine culture is positive.? Currently on Zosyn.? Continue and await identification of bacteria and sensitivities. Currently only identified as Gram-positive cocci. He is clinically improving so no changes for now until cultures result. 3. Indwelling Mack catheter with obstruction.? Obstruction has been corrected and catheter replaced.? Will need follow-up with Urology as an outpatient. 4. Hypertension.? Some slight elevation during the course of his admission though improved today. Discontinued IV fluids. Continue to monitor blood pressure. Continue regular medication. 5. Hyperlipidemia.? Continue home medication.. 6. Prostate cancer.? Urology is following as an outpatient. 7. Hyperkalemia, - unclear etiology at this time. Repeat testing, consider cessation of alexys- inhibition. ? ? Lovenox for DVT prophylaxis. PPI for GI prophylaxis Patient is full code Substitute decision maker:? Patient's son with whom he lives. Dispo: awaiting culture results to determine appropriate discharge therapy. He will discharge home with home health. Time Spent With Patient Critical Care time: I spent a total of [] minutes of critical care time on this patient's care today; this time is exclusive of procedural time.
[2022-06-17] VITALS (11 sets, daily range): BP systolic 78–164; BP diastolic 44–88; PULSE 65–77; RESP 14–20; TEMP 35.9–36.5; O2SAT 94–99
--- NOTE | 2022-06-17 03:53 | PC.NURSE ---
Pt has flat affect. No fever present, urine is clear and yellow. Pt has cough, states this is normal for him. Pt alert to self and place, when asked how is he at different times pt states still kicking, pt states he has not got much sleep.
[2022-06-17] MEDS: PIPERACILLIN/TAZO 3.375 GM in SODIUM CHLORIDE 0.9% 100 ML IV ×2 (05:46→14:10)
[2022-06-17 09:02] LABS: BUN Creatinine Ratio 21.2 (6-22); Blood Urea Nitrogen 18 mg/dL (9-20); Calcium 9.5 mg/dL (8.4-10.2); Carbon Dioxide 27 mmol/L (22-32); Chloride 101 mmol/L (98-107); Estimated Glomerular Filt Rate > 60 mL/min (>60); Glucose 114 mg/dL (80-110); HEMOLYSIS < 15 (0-50); Potassium 4.1 mmol/L (3.4-5.1); Sodium 140 mmol/L (137-145)
[2022-06-17] MEDS: lisinopriL 10 MG TABLET PO (09:37)
[2022-06-17] MEDS: ASPIRIN EC 81 MG TABLET PO (09:37)
[2022-06-17] MEDS: TAMSULOSIN 0.4 MG CAPSULE 0.8 MG PO (09:37)
--- NOTE | 2022-06-17 10:31 | P.DS_ITS ---
History of Present Illness History of Present Illness Date Patient Seen: 06/17/22 Chief complaint: urinary catheter is plugged Narrative: Per Dr. Orozco, This is an 86-year-old male who presents to the emergency department with his son with reported urinary catheter obstruction.? He was seen 3 days ago in the emergency department for Mack catheter problem with obstruction, his Mack catheter had been in for 2 weeks at that time, did not have signs or symptoms of infection, his urinary catheter was flushed and he was discharged home there was no urine evaluation that day.? He is brought in today for altered mental status, chills, concern for urinary tract infection with suprapubic tenderness.? He has history of UTIs, wears a catheter for BPH and prostate cancer and is chronically indwelling.? Patient's primary care provider is Dr. Melton.? Review of urine cultures below. Patient went to his corporation lawyer's appointment this morning, was getting clearance for upcoming urogenital surgery to ?remove his Mack catheter ?.? Patient is not on anticoagulants, has not had recent antibiotics, currently on tamsulosin b.i.d., simvastatin, lisinopril and baby aspirin daily.? Patient reports feeling ill, fatigued, he was diaphoretic during his cardiology appointment this morning and encouraged to go to the emergency department for evaluation.? Patient reports having chills.? Patient's son states that he was diaphoretic during his appointment at the corporation lawyer office today. Patient came to the ER for further evaluation and found to be in sepsis secondary to UTI. Mack catheter was not flushing, ER replaced Mack, IV fluid challenge help, urine output is adequate. Called for admission for sepsis secondary to UTI. When I saw the patient patient seems to be interactive, able to make a reasonable conversation even though he has some hard of hearing issues., son is at bedside confirmed most of the details as mentioned above. Patient denies any abdominal pain, fevers or chills at this time. Able to tolerate diet okay. Discharge Providers Provider Date of admission: 06/13/22 19:49 Discharge Date: 06/17/22 Primary care physician: Mumtaz Melton DO Consults: 06/13/22 22:06 Consult to [employer]ER - Hand Folder Routine Comment: extra needs at home 06/14/22 11:27 Consult to Home Health Routine Comment: Mack catheter management, safety, DME, strengthen Reason For Exam: Home Health: for RN, PT/OT Discharge provider: Perez Canada DO Summary Hospital Course Discharge Diagnosis: 1.? Sepsis concern.? This has been ruled out given SOFA score <2. ? ? ? 2.? Acute cystitis with hematuria.? Urine culture is positive.? Currently on Zosyn.? Continue and await identification of bacteria and sensitivities.? Currently only identified as Gram-positive cocci. He is clinically improving so no changes for now until cultures result. 3. Indwelling Mack catheter with obstruction.? Obstruction has been corrected and catheter replaced.? Will need follow-up with Urology as an outpatient. 4. Hypertension.? Some slight elevation during the course of his admission though improved today.? Discontinued IV fluids.? Continue to monitor blood pressure.? Continue regular medication. 5. Hyperlipidemia.? Continue home medication.. 6. Prostate cancer.? Urology is following as an outpatient. 7. Hyperkalemia, ?- unclear etiology at this time. Repeat testing, consider cessation of alexys- inhibition. Time Spent with Patient Time spent: Greater than 30 minutes Exam Vital Signs (past 8 hours): - 06/17/22 05:44 06/17/22 07:37 Temperature 97.1 F L 97.7 F Pulse Rate 74 67 Respiratory Rate 19 18 Blood Pressure 164/88 H 141/82 H Pulse Oximetry 96 97 Oxygen Flow Rate 0 0 Oxygen Delivery Method Room Air Oxygen Flow Rate 0 Narrative Exam Narrative: General:? Patient is well developed and well nourished, in no distress at this time. HEENT:? Normocephalic, atraumatic, extraocular muscles intact, oral pharynx is clear and mucous membranes are moist. Neck: supple and symmetric, trachea is midline, no cervical adenopathy. Negative for JVD Chest:? Normal AP diameter and contour without kyphoscoliosis, no tachypnea, equal chest rise bilaterally. Lungs:? CTA b/l no wheezing rhonchi or rales. Cardio:?RRR no m/r/g. Abdomen: S NT ND. No CVA tenderness. Musculoskeletal:? Muscle strength and tone are equal within normal limits, no deformity. Extremities: No edema or joint effusions. No cyanosis or clubbing. Neuro:? Alert, sensation to touch intact in all extremities, no gross deficits noted of cranial nerves. Psych:? Patient has a well-kept appearance, appropriate affect, mental status attitude thought context and judgment are appropriate for age. Objective Labs Result Diagrams: 06/16/22 10:30 06/17/22 08:40 Labs: Laboratory Results - last 24 hr 06/16/22 06/16/22 06/17/22 10:30 10:30 08:40 WBC 7.0 RBC 4.42 L Hgb 13.5 Hct 40.2 L MCV 91.0 MCH 30.5 MCHC 33.5 RDW 13.2 Plt Count 223 Neut % (Auto) 67.4 Lymph % (Auto) 16.9 L Dale % (Auto) 8.1 Eos % (Auto) 6.9 H Baso % (Auto) 0.7 Neut # (Auto) 4700 Lymph # (Auto) 1200 Dale # (Auto) 600 Eos # (Auto) 500 H Baso # (Auto) 100 Sodium 141 140 Potassium 5.9 H D 4.1 D Chloride 102 101 Carbon Dioxide 29 27 BUN 19 18 Creatinine 0.94 0.85 Estimated GFR > 60 > 60 BUN/Creatinine Ratio 20.2 21.2 Glucose 116 H 114 H Calcium 9.5 9.5 PFSH Medical History Asthma Chronic indwelling Mack catheter Coronary artery disease Depression Elevated PSA Excessive cerumen in both ear canals Hyperlipidemia Hypertension Lower urinary tract symptoms (LUTS) Osteoporosis Prostate cancer Retention of urine Screen for colon cancer Surgical History History of colon polyps (~2007) S/P CABG x 3 (~2006) Family History Father Stroke Social History marital status: number of children: 3 household members: spouse, family and children 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 Status: Former smoker alcohol intake: never Discharge Plan Discharge Plan Patient Disposition: Home Health Service Discharge orders & Medications Prescriptions: New linezolid 600 mg tablet 600 mg PO BID 7 Days Qty: 14 0RF Continued ASPIRIN (#ASPIRIN) 81 mg PO QDAY Qty: 0 lisinopril 10 mg tablet 20 mg PO DAILY simvastatin 40 mg tablet 40 mg PO QPM bicalutamide [Casodex] 50 mg tablet 50 mg PO DAILY Qty: 30 0RF tamsulosin 0.4 mg capsule 0.8 mg PO DAILY Qty: 60 12RF calcium carbonate [Tums] 200 mg calcium (500 mg) tablet,chewable 200 mg PO TID Follow up/Referrals: Mumtaz Melton, [Primary Care Provider] - Discharge Data Primary Care Provider: Mumtaz Melton
[2022-06-17] MEDS: SODIUM CHLORIDE 0.9% 500 ML 1000 ML IV (13:26)
--- NOTE | 2022-06-17 13:44 | PC.NURSE ---
hypotensive event approx 1315 pt leaning forward in recliner and states I feel a half inch from passing out. Pt assisted to sit back in recliner with feet elevated and head back. VS checked and showed low BP (78/45). Pt pale in coloration. notified by pt's primary RN Ambrosio and order for 500cc fluid bolus obtained. New IV placed and fluid bolus started. Reference EMAR.
--- NOTE | 2022-06-17 13:55 | CM.DPC ---
DCP Cont Per MD, pt seems medically stable to d/c home today and agreeable with HH. [facility] referral already made and F2F sent. Per RN, attempting to get ahold of pt's son or someone to provide transport. Pt then had hypotensive event and low bp and felt like he may pass out and being given a bolus and unclear if pt will d/c home today or not. Plan: SW to follow for possible d/c home this evening vs tomorrow and will alert [facility] at d/c. FARZAD Burnham
--- NOTE | 2022-06-17 14:14 | PM.PN.1 ---
Subjective Subjective Date Patient Seen: 06/17/22 Interval history: This is an 86-year-old male who presented to the emergency department with his son with reported urinary catheter obstruction.? He was seen 3 days prior to this admission in the emergency department for Miller catheter problem with obstruction, his Miller catheter had been in for 2 weeks at that time, did not have signs or symptoms of infection, his urinary catheter was flushed and he was discharged home. There was no urine evaluation that day.? On this admission, he presented to the ER with altered mental status, chills, concern for urinary tract infection with suprapubic tenderness.? Patient feeling well today, eating and drinking well. He has been afebrile. Cultures grew two separate staph species, antibiotics were to be narrowed to linezolid based on culture data and dischraged home but patient became hypotensive and dizzy, responsive to IV Fluid bolus today so discharge was held. Exam Vital Signs (past 8 hours): - 06/17/22 07:37 06/17/22 13:22 06/17/22 13:48 Temperature 97.7 F Pulse Rate 67 65 Respiratory Rate 18 18 Blood Pressure 141/82 H 78/45 L 82/44 L Pulse Oximetry 97 Oxygen Flow Rate 0 06/17/22 13:55 06/17/22 13:58 06/17/22 14:05 Temperature Pulse Rate 67 68 71 Respiratory Rate Blood Pressure 120/60 119/62 126/62 Pulse Oximetry Oxygen Flow Rate Oxygen Delivery Method Room Air Oxygen Flow Rate 0 Narrative Exam Narrative: General:? Patient is well developed and well nourished, in no distress at this time. HEENT:? Normocephalic, atraumatic, extraocular muscles intact, oral pharynx is clear and mucous membranes are moist. Neck: supple and symmetric, trachea is midline, no cervical adenopathy. Negative for JVD Chest:? Normal AP diameter and contour without kyphoscoliosis, no tachypnea, equal chest rise bilaterally. Lungs:? CTA b/l no wheezing rhonchi or rales. Cardio:?RRR no m/r/g. Abdomen: S NT ND. No CVA tenderness. Musculoskeletal:? Muscle strength and tone are equal within normal limits, no deformity. Extremities: No edema or joint effusions. No cyanosis or clubbing. Neuro:? Alert, sensation to touch intact in all extremities, no gross deficits noted of cranial nerves. Psych:? Patient has a well-kept appearance, appropriate affect, mental status attitude thought context and judgment are appropriate for age. Objective Labs Result Diagrams: 06/16/22 10:30 06/17/22 08:40 Labs: Laboratory Results - last 24 hr 06/17/22 08:40 Sodium 140 Potassium 4.1 D Chloride 101 Carbon Dioxide 27 BUN 18 Creatinine 0.85 Estimated GFR > 60 BUN/Creatinine Ratio 21.2 Glucose 114 H Calcium 9.5 PFSH Medical History Asthma Chronic indwelling Miller catheter Coronary artery disease Depression Elevated PSA Excessive cerumen in both ear canals Hyperlipidemia Hypertension Lower urinary tract symptoms (LUTS) Osteoporosis Prostate cancer Retention of urine Screen for colon cancer Surgical History History of colon polyps (~2007) S/P CABG x 3 (~2006) Family History Father Stroke Social History marital status: number of children: 3 household members: spouse, family and children 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 Sepsis with acute metabolic encephalopathy, hypotension secondary to #2. - Patient with confusion per ER reports, ipmroved with antibiotic therapy. - developed hypotension today as discussed above - continue antibiotics as noted below in problem #2. ? ? ? 2.? Acute cystitis with hematuria secondary to chronic indwelling miller catheter - Urine culture with two separate positive staph species. Was on zosyn but may not have been effective against these staph species.?Will change to linezolid today. With low BP today and dizziness will hold on discharge today. 3. Indwelling Miller catheter with obstruction.? Obstruction has been corrected and catheter replaced.? Will need follow-up with Urology as an outpatient. 4. Hypertension.? Some slight elevation during the course of his admission though improved today. Discontinued IV fluids. Continue to monitor blood pressure. Continue regular medication. 5. Hyperlipidemia.? Continue home medication.. 6. Prostate cancer.? Urology is following as an outpatient. 7. Hyperkalemia, - unclear etiology at this time. Repeat testing unremarkable the following day, consider cessation of alexys-inhibition. ? ? Lovenox for DVT prophylaxis. Patient is full code Substitute decision maker:? Patient's son with whom he lives. Dispo: awaiting culture results to determine appropriate discharge therapy. He will discharge home with home health. Time Spent With Patient Critical Care time: I spent a total of [] minutes of critical care time on this patient's care today; this time is exclusive of procedural time.
[2022-06-17] MEDS: LINEZOLID 600 MG TABLET PO (20:34)
[2022-06-17] MEDS: SODIUM CHLORIDE 0.9% FLUSH 10 ML IV (20:35)
[2022-06-18 04:11] VITALS: BP 103/56; PULSE 65; RESP 17; TEMP 36.2; O2SAT 100
--- NOTE | 2022-06-18 07:40 | PM.DS.1 ---
History of Present Illness History of Present Illness Date Patient Seen: 06/18/22 Chief complaint: urinary catheter is plugged Narrative: This is an 86-year-old male who presents to the emergency department with his son with reported urinary catheter obstruction.? He was seen 3 days ago in the emergency department for Miller catheter problem with obstruction, his Miller catheter had been in for 2 weeks at that time, did not have signs or symptoms of infection, his urinary catheter was flushed and he was discharged home there was no urine evaluation that day.? He is brought in today for altered mental status, chills, concern for urinary tract infection with suprapubic tenderness.? He has history of UTIs, wears a catheter for BPH and prostate cancer and is chronically indwelling.? Patient's primary care provider is Dr. Melton.? Review of urine cultures below. Patient went to his negative checker's appointment this morning, was getting clearance for upcoming urogenital surgery to ?remove his Miller catheter ?.? Patient is not on anticoagulants, has not had recent antibiotics, currently on tamsulosin b.i.d., simvastatin, lisinopril and baby aspirin daily.? Patient reports feeling ill, fatigued, he was diaphoretic during his cardiology appointment this morning and encouraged to go to the emergency department for evaluation.? Patient reports having chills.? Patient's son states that he was diaphoretic during his appointment at the negative checker office today.? Patient came to the ER for further evaluation and found to be in sepsis secondary to UTI.? Miller catheter was not flushing, ER replaced Miller, IV fluid challenge help, urine output is adequate.? Called for admission for sepsis secondary to UTI.? When I saw the patient patient seems to be interactive, able to make a reasonable conversation even though he has some hard of hearing issues., son is at bedside confirmed most of the details as mentioned above.? Patient denies any abdominal pain, fevers or chills at this time.? Able to tolerate diet okay. Discharge Providers Provider Date of admission: 06/13/22 19:49 Discharge Date: 06/18/22 Primary care physician: Mumtaz Melton DO Consults: 06/13/22 22:06 Consult to PLASTER APPLICATOR - Group Manager Routine Comment: extra needs at home 06/14/22 11:27 Consult to Home Health Routine Comment: Miller catheter management, safety, DME, strengthen Reason For Exam: Home Health: for RN, PT/OT Discharge provider: Zackery Monroe, DO Summary Hospital Course Discharge Diagnosis: 1.? Sepsis with acute toxic encephalopathy resolved ?- Patient with confusion per ER reports and likely due to UTI, improved with antibiotic therapy. ? ? ? 2.? Acute cystitis with hematuria secondary to chronic indwelling miller catheter - Urine culture with two separate positive staph species (staph epi and staph xylosus). Zosyn changed to linezolid following sensitivities to complete 10 days of treatment. 3. Indwelling Miller catheter with obstruction.? Obstruction has been corrected and catheter replaced.? Will need follow-up with Urology as an outpatient. 4. Hypertension.? Some slight elevation during the course of his admission though improved today.? Discontinued IV fluids.? Continue to monitor blood pressure.? Holding BP meds due to hypotension. 5. Hyperlipidemia.? Continue home medication.. 6. Prostate cancer.? Urology is following as an outpatient. 7. Hyperkalemia ?- unclear etiology at this time. Repeat testing unremarkable the following day, will stop home lisinopril on dc given hypotension and HyperK. 8. Hypotension -fluid responsive, BP meds held and flomax dose halved from 0.8 to 0.4mg daily -orthostatics negative prior to dc Hospital Course: Admitted for AMS and chills and found to have urinary tract infection with 2 staph species. Improved with IV Zosyn then discharged on 5 additional days of linezolid to complete 10 day course. You had low blood pressure and dizziness while in the hospital so lisinopril was stopped and lowered the dose of your flomax. Patient will f/u with urology as outpatient for miller and urinary retention management. Home health services setup at discharge. Time Spent with Patient Time spent: Greater than 30 minutes Exam Vital Signs (past 8 hours): - 06/18/22 04:11 Temperature 97.1 F L Pulse Rate 65 Respiratory Rate 17 Blood Pressure 103/56 L Pulse Oximetry 100 Oxygen Flow Rate 0 Oxygen Delivery Method Room Air Oxygen Flow Rate 0 Narrative Exam Narrative: General:? Patient is well developed and well nourished, in no distress at this time. HEENT:? Normocephalic, atraumatic, extraocular muscles intact, oral pharynx is clear and mucous membranes are moist. Neck: supple and symmetric, trachea is midline, no cervical adenopathy. Negative for JVD Chest:? Normal AP diameter and contour without kyphoscoliosis, no tachypnea, equal chest rise bilaterally. Lungs:? CTA b/l no wheezing rhonchi or rales. Cardio:?RRR no m/r/g. Abdomen: S NT ND. No CVA tenderness. Musculoskeletal:? Muscle strength and tone are equal within normal limits, no deformity. Extremities: No edema or joint effusions. No cyanosis or clubbing. Neuro:? Alert, sensation to touch intact in all extremities, no gross deficits noted of cranial nerves. Psych:? Patient has a well-kept appearance, appropriate affect, mental status attitude thought context and judgment are appropriate for age. Objective Labs Result Diagrams: 06/16/22 10:30 06/17/22 08:40 Labs: Laboratory Results - last 24 hr 06/17/22 08:40 Sodium 140 Potassium 4.1 D Chloride 101 Carbon Dioxide 27 BUN 18 Creatinine 0.85 Estimated GFR > 60 BUN/Creatinine Ratio 21.2 Glucose 114 H Calcium 9.5 PFSH Medical History Asthma Chronic indwelling Miller catheter Coronary artery disease Depression Elevated PSA Excessive cerumen in both ear canals Hyperlipidemia Hypertension Lower urinary tract symptoms (LUTS) Osteoporosis Prostate cancer Retention of urine Screen for colon cancer Surgical History History of colon polyps (~2007) S/P CABG x 3 (~2006) Family History Father Stroke Social History marital status: number of children: 3 household members: spouse, family and children Previous occupational history: retired [employer] Smoking Status: Former smoker alcohol intake: never Discharge Plan Discharge Plan Patient Disposition: Home Health Service Provider Discharge Comment: You were admitted to the hospital with a urinary tract infection. You improved with IV antibiotics, and will discharge on 5 additional days of oral antibiotic to finish which will complete treatment for your UTI. You had low blood pressure and dizziness while in the hospital so I stopped your lisinopril and lowered the dose of your flomax as these can both contribute to low blood pressure. Discharge orders & Medications Prescriptions: New linezolid 600 mg Tablet 600 mg PO BID 5 Days Qty: 10 0RF Rx Instructions: start morning of 06/19 Continued ASPIRIN (#ASPIRIN) 81 mg PO QDAY Qty: 0 simvastatin 40 mg tablet 40 mg PO QPM bicalutamide [Casodex] 50 mg tablet 50 mg PO DAILY Qty: 30 0RF calcium carbonate [Tums] 200 mg calcium (500 mg) tablet,chewable 200 mg PO TID Changed tamsulosin 0.4 mg capsule 0.4 mg PO DAILY Qty: 60 12RF Discontinued lisinopril 10 mg tablet 20 mg PO DAILY Follow up/Referrals: Mumtaz Melton DO [Primary Care Provider] - 2 Weeks Diet/Activity/Treatments Diet: Diet as Tolerated Activity: As tolerated Catheter: 2-way Miller Visit Report/Discharge Packet Instructions: Urinary Tract Infection, DI for Urinary Tract Infection (UTI), Linezolid Discharge Data Primary Care Provider: Mumtaz Melton
[2022-06-18 07:50] VITALS: BP 128/73; PULSE 64; RESP 16; TEMP 36.1; O2SAT 97
--- NOTE | 2022-06-18 08:48 | CM.DPC ---
DCP Discharge Home with HH Per MD, pt now medically stable to d/c after d/c was cancelled yesterday due to orthostatics and no identified barriers to discharge. SW called [facility] and alerted them to d/c and confirmed they have the F2F, referral and orders to open pt to service likely tomorrow 06/19/22. Plan: Patient to d/c home today via son POV and new [facility] to start after discharge. No further SW needs at this time. FARZAD Burnham
[2022-06-18 09:32] VITALS: BP 113/75; BP 117/67; BP 122/71; PULSE 101; PULSE 66; PULSE 71
[2022-06-18] MEDS: ASPIRIN EC 81 MG TABLET PO (09:34)
[2022-06-18] MEDS: LINEZOLID 600 MG TABLET PO (09:35)
[2022-06-18] MEDS: lisinopriL 10 MG TABLET PO (09:35)
[2022-06-18] MEDS: TAMSULOSIN 0.4 MG CAPSULE 0.8 MG PO (09:35)
[2022-06-18] MEDS: SODIUM CHLORIDE 0.9% FLUSH 10 ML IV (09:37)
--- NOTE | 2022-06-18 10:50 | PC.NURSE ---
Pt vss, afebrile, AnOx2. Fine crackles auscultated bilaterally on lung bases. Normoactive bowel sounds. Pt denies pain, reports feeling much better today. No dizziness during orthostatic vitals.
--- NOTE | 2022-06-18 12:29 | PC.NURSE ---
Pt discharged and paperwork gone over with Son. Getting dressed now and will go down to car by wheelchair.
== END 2022-06-18 12:43 | disposition home health service (06) | DRG 698 ==
LOC: ED 19:49 → AC 19:51
PROVIDERS: Neuromusculoskeletal Medicine, Sports Medicine; Nurse Practitioner Family; Admitting Provider Family Medicine; Emergency Provider Nurse Practitioner Critical Care Medicine; PCP Family Medicine; Referring Provider Nurse Practitioner Critical Care Medicine; Visit Provider Family Medicine
DX: T83.511A Infection and inflammatory reaction due to indwelling urethral catheter, initial encounter (principal); A41.9 Sepsis, unspecified organism; G93.41 Metabolic encephalopathy; R65.20 Severe sepsis without septic shock; N30.01 Acute cystitis with hematuria; C61 Malignant neoplasm of prostate; I10 Essential (primary) hypertension; E78.5 Hyperlipidemia, unspecified; B95.7 Other staphylococcus as the cause of diseases classified elsewhere; N40.1 Benign prostatic hyperplasia with lower urinary tract symptoms; Z20.822 Contact with and (suspected) exposure to COVID-19; Z87.891 Personal history of nicotine dependence
CPT/HCPCS: 36415; 51702; 51798; 76770; 80048; 80053; 81001; 83605; 84145; 85025; 86140; 87040; 87077; 87086; 87147; 87186; 87635; 93306; 96365; 96367; 99282; 99284; C9803; J0696; J1335; J2543; J7050

== ENCOUNTER → 2022-07-17 10:14 | Outpatient (CLI) | payer OTHER, SELFPAY ==
[2022-07-17 12:56] LABS: Prostate Specific Antigen 0.402 ng/mL (0.10-4.00)
== END ==
PROVIDERS: PCP Family Medicine; Referring Provider Urology; Visit Provider Urology
DX: C61 Malignant neoplasm of prostate (principal); N39.0 Urinary tract infection, site not specified; R33.8 Other retention of urine; R97.20 Elevated prostate specific antigen [PSA]; R41.3 Other amnesia; R55 Syncope and collapse; Z79.818 Long term (current) use of other agents affecting estrogen receptors and estrogen levels
CPT/HCPCS: 36415; 51702; 84153; 87077; 87086; 87186; 96402; 99214; J9217

== ENCOUNTER → 2022-08-06 15:54 | Outpatient (CLI) | payer OTHER, SELFPAY | PROVIDERS: PCP Family Medicine; Visit Provider Urology | DX: C61 Malignant neoplasm of prostate (principal); R33.8 Other retention of urine; R41.3 Other amnesia; B35.6 Tinea cruris; Z97.8 Presence of other specified devices; Z87.440 Personal history of urinary (tract) infections | CPT/HCPCS: 87077; 87086; 87186; 99214 ==

== ENCOUNTER 2022-08-14 11:13 | Day surgery (SDC) | payer OTHER, SELFPAY ==
[2022-08-14] VITALS (9 sets, daily range): BP systolic 108–152; BP diastolic 72–89; PULSE 67–92; RESP 11–22; TEMP 36.1–36.9; O2SAT 95–99; BMI 26.4
[2022-08-14] MEDS: LACTATED RINGERS 1,000 ML 42 ML IV (11:42)
[2022-08-14 11:57] LABS: COVID19 -Nasal RAPID Negative (Negative)
--- NOTE | 2022-08-14 12:02 | PM.PREOP ---
Pre-operative Note COVID-19 COVID-19 status: Negative Result date/Date tested (Pos, Neg/Pending): 08/14/22 Criteria for continued procedure: Delay expected to result in less-positive ultimate med/surg outcome and Non-surgical alternatives not available or appropriate per current SOC Interval Note History & Physical reviewed/Exam performed by Physician: Yes Changes to H&P: No
--- NOTE | 2022-08-14 12:24 | SUR.OPER ---
Lithotomy on padded OR bed, head on pillow, arms secured on padded arm boards at <90 degrees abduction. Legs secured in padded yellow fins stirrups.
[2022-08-14] MEDS: CEFAZOLIN 2 GM/100 ML PREMIX 100 ML IV (12:40)
[2022-08-14] MEDS: BUPIVACAINE 0.25% (PF) VIAL 5 ML SUBCUT (13:00)
[2022-08-14] MEDS: MINERAL OIL LIGHT TOPICAL 10 ML TOP (13:02)
--- NOTE | 2022-08-14 13:20 | PM.OP.1 ---
Procedure & Clinicians Procedure: Cystoscopy with percutaneous direct vision placement of suprapubic tube. Same procedure as scheduled: Yes Indications: This 87-year-old male has urinary retention and has been managed by an indwelling Mack catheter. He presents to transition to a suprapubic tube to manage his urinary concerns. Patient is covered with appropriate antibiotics. Surgeon: Alex Walker Click Yes if Unassisted: Yes Anesthesia Type: General Operative Notes Findings: Urethra normal to the prostatic fossa which shows some obstructive character. 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 There is some erythema from his Mack catheter having been in place. Otherwise normal anatomy was observed ureteral orifices in normal position with clear efflux. An 18 South African 5 cc all silicone catheter was placed as a SP tube and was in good position and draining well. Closure Type: primary Specimen(s): none sent Prosthetic devices, grafts, tissues, transplants, or devices: Eighteen South African all silicone catheter 10 cc of sterile water in balloon as an SP tube. Estimated Blood Loss (mL): 5 Blood products transfused: none Procedure in detail: Procedure in detail: After informed consent was obtained, the patient was identified and brought to the operating room where was placed in a supine position on the table. Patient then had anesthesia induced and maintained. Ensuring that there was an adequate level of anesthesia the patient was transitioned to the lithotomy position. Once in lithotomy position he was shaved, prepped, draped and prepared in a sterile fashion for the above procedure. After time-out, ensuring an adequate level of anesthesia 25 South African cystoscope was passed through the urethra prostate into bladder under direct vision. Cystoscopy was performed. The dome of the bladder was identified and 1 fingerbreadth above the mid pubic symphysis a spinal needle was passed into the bladder under direct vision. The spinal needle was then used to infiltrate the bladder wall subcutaneous tissues and skin with cord% plain Marcaine. A transverse incision was made. The trocar and sheath were then passed under direct vision with the patient in steep Trendelenburg from the skin into the bladder. The trocar was removed the sheath was left in place an 18 South African catheter was passed through the sheath and into the bladder where the balloon was filled with 10 cc of sterile water. The sheath was then backed out and removed and the catheter was left in place. The whole process was done under direct vision with the cystoscope. With the catheter in good position a 2-0 nylon was used in a horizontal mattress fashion to reapproximate the skin edges around the catheter and then the catheter was secured in place with a 2-0 nylon. This catheter was in check for drainage it drained well hemostasis was good and the scope was removed. Dressings were applied the catheter was placed to gravity drainage the patient was awakened and transferred to the postanesthesia care unit having tolerated the procedure well. There were no complications patient is to follow up my office in 10 days for stent removal in 30 days for his 1st SP tube change. Complications: none Post-operative Condition: stable Disposition: PACU Plan for aftercare: Discharge to home with SP tube in place follow-up my office 10 days for stitch removal (approximate) and then in 30 days for his 1st SP tube exchange.
== END 2022-08-14 14:45 | disposition home or self-care (01) ==
PROVIDERS: PCP Family Medicine; Referring Provider Urology; Visit Provider Urology
PROC: 0T9B30Z Drainage of Bladder with Drainage Device, Percutaneous Approach (ICD-10-PCS; CPT 51102; principal; 2022-08-14 12:30)
DX: R33.9 Retention of urine, unspecified (principal); C61 Malignant neoplasm of prostate; Z20.822 Contact with and (suspected) exposure to COVID-19
CPT/HCPCS: 51102; 82962; 87635; C9803; J0690; J2704; J3010; J3490

== ENCOUNTER → 2022-09-14 15:37 | Outpatient (CLI) | payer OTHER, SELFPAY | PROVIDERS: PCP Family Medicine; Visit Provider Urology | DX: C61 Malignant neoplasm of prostate (principal); N30.01 Acute cystitis with hematuria; R33.8 Other retention of urine; R33.9 Retention of urine, unspecified; Z43.5 Encounter for attention to cystostomy | CPT/HCPCS: 87077; 87086; 87186; 99213 ==

== ENCOUNTER → 2022-10-22 15:59 | Outpatient (CLI) | payer OTHER, SELFPAY | PROVIDERS: PCP Family Medicine; Visit Provider Urology | DX: C61 Malignant neoplasm of prostate (principal); Z43.5 Encounter for attention to cystostomy; R33.9 Retention of urine, unspecified; M81.8 Other osteoporosis without current pathological fracture; Z79.818 Long term (current) use of other agents affecting estrogen receptors and estrogen levels | CPT/HCPCS: 51702; 87077; 87086; 87186; 96402; 99214; J9217 ==

== ENCOUNTER → 2022-11-21 15:38 | Outpatient (CLI) | payer OTHER, SELFPAY | PROVIDERS: PCP Family Medicine; Visit Provider Urology | DX: R33.8 Other retention of urine (principal); R41.3 Other amnesia; Z97.8 Presence of other specified devices; Z43.5 Encounter for attention to cystostomy | CPT/HCPCS: 51702; 87086; 99213 ==

== ENCOUNTER → 2023-01-01 15:24 | Outpatient (CLI) | payer OTHER, SELFPAY | PROVIDERS: PCP Family Medicine; Visit Provider Urology | DX: N39.0 Urinary tract infection, site not specified (principal) | CPT/HCPCS: 87086 ==

== ENCOUNTER → 2023-01-01 16:07 | Outpatient (CLI) | payer OTHER, SELFPAY ==
[2023-01-01 18:20] LABS: Prostate Specific Antigen 0.279 ng/mL (0.10-4.00)
== END ==
PROVIDERS: PCP Family Medicine; Referring Provider Urology; Visit Provider Urology
DX: C61 Malignant neoplasm of prostate (principal); N39.0 Urinary tract infection, site not specified; R33.9 Retention of urine, unspecified; Z43.5 Encounter for attention to cystostomy
CPT/HCPCS: 36415; 51702; 84153; 87086; 99213

== ENCOUNTER → 2023-02-05 16:08 | Outpatient (CLI) | payer OTHER, SELFPAY | PROVIDERS: PCP Family Medicine; Visit Provider Urology | DX: N39.0 Urinary tract infection, site not specified (principal); R33.8 Other retention of urine; R39.9 Unspecified symptoms and signs involving the genitourinary system; R58 Hemorrhage, not elsewhere classified | CPT/HCPCS: 17250; 51702; 87077; 87086; 87186 ==

== ENCOUNTER → 2023-03-04 13:07 | Outpatient (CLI) | payer OTHER, SELFPAY | PROVIDERS: PCP Family Medicine; Visit Provider Specialist | DX: Z43.5 Encounter for attention to cystostomy (principal); R33.8 Other retention of urine; R33.9 Retention of urine, unspecified; R39.9 Unspecified symptoms and signs involving the genitourinary system; N39.0 Urinary tract infection, site not specified | CPT/HCPCS: 17250; 51702; 87077; 87086; 87186 ==

== ENCOUNTER → 2023-04-01 12:15 | Outpatient (CLI) | payer OTHER, SELFPAY | PROVIDERS: PCP Family Medicine; Visit Provider Urology | DX: Z43.5 Encounter for attention to cystostomy (principal); L92.8 Other granulomatous disorders of the skin and subcutaneous tissue; N30.01 Acute cystitis with hematuria; R33.8 Other retention of urine; R33.9 Retention of urine, unspecified; R39.9 Unspecified symptoms and signs involving the genitourinary system | CPT/HCPCS: 17250; 51702; 87077; 87086; 87186 ==

== ENCOUNTER → 2023-04-15 16:55 | Outpatient (CLI) | payer OTHER, SELFPAY ==
[2023-04-15 18:47] LABS: Prostate Specific Antigen 0.435 ng/mL (0.10-4.00)
== END ==
PROVIDERS: PCP Family Medicine; Referring Provider Urology; Visit Provider Urology
DX: C61 Malignant neoplasm of prostate (principal)
CPT/HCPCS: 36415; 84153

== ENCOUNTER 2023-04-16 17:29 | Emergency (ER) | payer OTHER, SELFPAY ==
[2023-04-16 17:38] VITALS: BP 137/84; PULSE 96; RESP 15; TEMP 36.8; O2SAT 96; BMI 24.4
[2023-04-16 18:49] LABS: Bacteria Urine Moderate (10-30); Culture Indicated Urine Specimen Cultured; RBC Urine None Seen (0-5/HPF); Squamous Epithelial Cell Urine None Seen (0-5/HPF); WBC Urine 10-30/HPF (0-5/HPF); White Blood Cell Casts Urine 1-5/LPF
--- NOTE | 2023-04-16 19:12 | ED_ITS ---
HPI - General Adult General Chief complaint: Urogenital-Male Stated complaint: urinary cath is plugged Time Seen by Provider: 04/16/23 18:03 Source: patient and family Mode of arrival: Ambulatory Limitations: no limitations History of Present Illness HPI narrative: Patient is an 87-year-old male. Has a history of a suprapubic catheter. He is here with family stating that the catheter has not drained most of the day. Patient denies any pain. No vomiting. The catheter that is currently in place has been there for approximately 2 weeks. The catheter is in place because of prostate cancer. Related Data Home Medications Medication Instructions Recorded Confirmed aspirin 81 mg capsule 81 mg PO DAILY ##0 08/22/11 04/01/23 calcium carbonate 200 mg calcium 200 mg PO TID 10/05/21 04/01/23 (500 mg) chewable tablet (Tums) Previous Rx's Medication Instructions Recorded nystatin 100,000 unit/gram topical 1 applic topical BID #60 grams 08/06/22 powder tamsulosin 0.4 mg capsule See Rx Instructions .Route 10/22/22 .COMPLEX #60 caps Allergies Allergy/AdvReac Type Severity Reaction Status Date / Time ciprofloxacin Allergy Unknown DIZZY/LIGHT Verified 04/16/23 17:38 HEADED/CONF USION/AGITA TION Sulfa (Sulfonamide Allergy Unknown Verified 04/16/23 17:38 Antibiotics) Review of Systems Gastrointestinal Gastrointestinal: Reports system reviewed and no additional complaints, except as documented Genitourinary Genitourinary: Reports system reviewed and no additional complaints, except as documented Integumentary/Breasts Skin/Breast: Reports system reviewed and no additional complaints, except as documented Patient History Medical History Asthma Chronic indwelling Mack catheter Coronary artery disease Depression Elevated PSA Encounter for care or replacement of suprapubic tube Encounter for monitoring androgen deprivation therapy Excessive cerumen in both ear canals Mack catheter in place Hyperlipidemia Hypertension Lower urinary tract symptoms (LUTS) Osteoporosis Prostate cancer Retention of urine Screen for colon cancer Surgical History History of colon polyps (~2007) S/P CABG x 3 (~2006) Family History Father Stroke Social History marital status: number of children: 3 household members: spouse, family and children 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 Status: Former smoker alcohol intake: never Smoking Status: Former smoker alcohol intake frequency: holidays/special occasions only Substance Use Type: does not use Exam Initial Vital Signs Initial Vital Signs: Vital Signs Temperature 98.2 F 04/16/23 17:38 Pulse Rate 96 H 04/16/23 17:38 Respiratory Rate 15 04/16/23 17:38 Blood Pressure 137/84 04/16/23 17:38 Pulse Oximetry 96 04/16/23 17:38 Oxygen Delivery Method Room Air 04/16/23 17:38 HENMT Head: normal to inspection and normocephalic GI Inspection: non-distended Other: Suprapubic catheter in place External: normal external exam Skin General: no rashes or lesions noted Course Orders Ordered: ED Orders 04/16/23 17:56 Urine Culture Stat Urine Microscopic Stat Vital Signs Vital signs: Vital Signs - 8 hr 04/16/23 17:38 Temperature 98.2 F Pulse Rate 96 H Respiratory Rate 15 Blood Pressure 137/84 Pulse Oximetry 96 Oxygen Delivery Method Room Air Medical Decision Making Lab Data Lab results reviewed: Yes I reviewed the patient's lab results. Labs: Lab Results 04/16/23 Range/Units 17:56 Urine RBC None seen (0-5/HPF) Urine WBC 10-30/hpf H (0-5/HPF) Ur Squamous Epith Cells None seen (0-5/HPF) Urine Bacteria Moderate (10-30) H (None) WBC Casts 1-5/lpf H (None) Ur Culture Indicated? Specimen cultured Urine Dip Bedside Urine Glucose Negative Bedside Urine Bilirubin - Negative Bedside Urine Ketone - Negative Urine Specific [facility] 1.015 Bedside Urine Occult Blood + Bedside Urine pH 6.0 Bedside Urine Protein - Negative Bedside Urine Urobilinogen - Negative Bedside Urine Nitrite + Positive Bedside Urine Leukocytes ++ 125 Esterase Point of care testing: Urine Dip Bedside Urine Glucose Negative Bedside Urine Bilirubin - Negative Bedside Urine Ketone - Negative Urine Specific [facility] 1.015 Bedside Urine Occult Blood + Bedside Urine pH 6.0 Bedside Urine Protein - Negative Bedside Urine Urobilinogen - Negative Bedside Urine Nitrite + Positive Bedside Urine Leukocytes ++ 125 Esterase MDM Narrative Medical decision making narrative: It appears that the suprapubic catheter has dislodged so a new 1 was replaced in his now draining without issue. Patient has no abdominal pain. Does have a nitrite positive urine however very well could be colonized. We will wait for the culture to resolve before starting any antibiotics. Will discharge patient home with return precautions. Patient and family at bedside expressed understanding and agreement. Discharge Plan Departure Patient Disposition: Home Clinical Impression: Mechanical complication of suprapubic catheter Activity Restrictions/Additional Instructions: Recommend that you continue to take all of your medications as directed. Contact your primary doctor for follow-up. Return to the emergency department for new or worsening symptoms. Prescriptions: No Action aspirin 81 mg Capsule 81 mg PO DAILY Qty: 0 tamsulosin 0.4 mg capsule See Rx Instructions .ROUTE .COMPLEX Qty: 60 11RF Dose Instruction: TAKE 2 CAPSULES BY MOUTH DAILY Rx Instructions: TAKE 2 CAPSULES BY MOUTH DAILY calcium carbonate [Tums] 200 mg calcium (500 mg) tablet,chewable 200 mg PO TID nystatin 100,000 unit/gram powder 1 applic topical BID Qty: 60 2RF Referrals: Mumtaz Melton DO [Primary Care Provider] - Stand Alone Forms: Patient Portal/API
--- NOTE | 2023-04-16 20:30 | PC.NURSE ---
pt placed in room and assessed by Dr Greer
--- NOTE | 2023-04-16 20:54 | PC.NURSE ---
Went to flush catheter, noticed suprapubic catheter was not in place. Pt had originally had a 22f catheter, tried to replace with a 22f unable to advance, changed to 16f coude and was able to place in suprapubic, draining urine now without difficulty
--- NOTE | 2023-04-16 21:16 | PC.NURSE ---
leg bag placed on pt
== END 2023-04-16 21:17 | disposition home or self-care (01) ==
PROVIDERS: Emergency Medicine; Emergency Provider Emergency Medicine; PCP Family Medicine
DX: T83.028A Displacement of other urinary catheter, initial encounter (principal)
CPT/HCPCS: 51702; 51798; 81003; 81015; 87077; 87086; 87186; 99283

== ENCOUNTER → 2023-05-21 11:15 | Outpatient (CLI) | payer OTHER, SELFPAY | PROVIDERS: PCP Family Medicine; Visit Provider Urology | DX: N39.0 Urinary tract infection, site not specified (principal); R33.8 Other retention of urine; R33.9 Retention of urine, unspecified; R39.9 Unspecified symptoms and signs involving the genitourinary system | CPT/HCPCS: 51702; 87077; 87086; 87186 ==

== ENCOUNTER → 2023-06-18 17:12 | Outpatient (CLI) | payer OTHER, SELFPAY | PROVIDERS: PCP Family Medicine; Visit Provider Urology | DX: Z43.5 Encounter for attention to cystostomy (principal); N39.0 Urinary tract infection, site not specified; R33.8 Other retention of urine; R33.9 Retention of urine, unspecified; R39.9 Unspecified symptoms and signs involving the genitourinary system | CPT/HCPCS: 51702; 87077; 87086; 87186 ==

== ENCOUNTER → 2023-07-17 08:32 | Outpatient (CLI) | payer OTHER, SELFPAY | PROVIDERS: PCP Family Medicine; Visit Provider Urology | DX: Z97.8 Presence of other specified devices (principal); R33.8 Other retention of urine; R33.9 Retention of urine, unspecified; R39.9 Unspecified symptoms and signs involving the genitourinary system; N39.0 Urinary tract infection, site not specified | CPT/HCPCS: 87077; 87086; 87186 ==

== ENCOUNTER 2023-07-23 02:32 | Emergency (ER) | payer OTHER, SELFPAY ==
[2023-07-23] VITALS (9 sets, daily range): BP systolic 98–139; BP diastolic 69–86; PULSE 56–118; RESP 18–32; TEMP 36.6; O2SAT 83–96
--- NOTE | 2023-07-23 02:38 | DI.CT.S_ITS ---
PROCEDURE: CT CERVICAL SPINE WO CON INDICATIONS: fall with head injury TECHNIQUE: Noncontrast 3 mm thick sections acquired from the skull base to the T4 level. Sagittal and coronal reformats were then constructed. For radiation dose reduction, the following was used: automated exposure control, adjustment of mA and/or kV according to patient size. COMPARISON: [facility], CR, XR CERVICAL SPINE 2V OR 3V, 10/23/2021, 14:35. [facility], CR, XR THORACIC SPINE 2V, 10/23/2021, 14:35. FINDINGS: Image quality: Excellent. Bones: No fractures or dislocations. There is kyphosis. Mild degenerative disc and facet disease in cervical spine. Osteopenia. Visualized superior ribs are intact. Sternotomy. Soft tissues: Prevertebral soft tissues are normal in thickness. No paravertebral hematomas. No apical pneumothoraces. Mild thoracic aortic aneurysm measuring 3.8 cm in aortic arch. IMPRESSION: No acute osseous abnormality. No significant discrepancy with the shift superintendent radiology preliminary report. Dictated by: Yanet Hamilton M.D. on 07/23/2023 at 7:30 Approved by: Yanet Hamilton M.D. on 07/23/2023 at 8:13
--- NOTE | 2023-07-23 02:38 | DI.CT.S_ITS ---
PROCEDURE: CT HEAD/BRAIN WO CON INDICATIONS: fall with hit head TECHNIQUE: Noncontrast 4.5 mm thick angled axial sections acquired from the foramen magnum to the vertex, with coronal and sagittal reformats. For radiation dose reduction, the following was used: automated exposure control, adjustment of mA and/or kV according to patient size. COMPARISON: [facility], CT, HEAD WITHOUT CONTRAST, 10/29/2013, 10:52. FINDINGS: Image quality: Excellent. CSF spaces: Basal cisterns are patent. No extra-axial fluid collections. The ventricles are symmetric in size and shape. Brain: No intracranial bleeds or masses. There is moderate cerebral volume loss with resultant ventricular and sulcal prominence. There are moderate periventricular and deep white matter chronic small vessel ischemic changes. There is intracranial internal carotid artery atherosclerosis. Skull and face: Calvarium and visualized facial bones appear intact, without suspicious lesions. Sinuses: Visualized sinuses and mastoids are clear. IMPRESSION: 1. No acute intracranial abnormalities. 2. Cerebral volume loss and chronic microvascular ischemic changes. Dictated by: Yanet Hamilton M.D. on 07/23/2023 at 7:29 Approved by: Yanet Hamilton M.D. on 07/23/2023 at 7:30
--- NOTE | 2023-07-23 03:23 | ED.FALL ---
HPI - Fall General Chief Complaint: Fall Stated Complaint: glf Time Seen by Provider: 07/23/23 02:37 Source: patient and EMS Mode of arrival: EMS History of Present Illness HPI Narrative: Patient is an 80-year-old male does have a prior diagnosis of ?memory impairment? was brought in by EMS for evaluation of generalized soreness after having a fall. Patient states he was trying to step up on a step and he seemed to missed it and then fell. He did state that he hit his head. No loss of consciousness. He is no specific extremity injuries and no neck pain but just feels sore all over. He knows that he is in the hospital on what city [place] and but does not know what year it is. I do somewhat question his complete knowledge of the events. No family at bedside to provide any HPI. Patient is unsure as to who contacted EMS. EMS did pick him up at home. Related Data Home Medications Medication Instructions Recorded Confirmed aspirin 81 mg capsule 81 mg PO DAILY ##0 08/22/11 06/18/23 calcium carbonate 200 mg calcium 200 mg PO TID 10/05/21 06/18/23 (500 mg) chewable tablet (Tums) Previous Rx's Medication Instructions Recorded nystatin 100,000 unit/gram topical 1 applic topical BID #60 grams 08/06/22 powder tamsulosin 0.4 mg capsule See Rx Instructions .Route 10/22/22 .COMPLEX #60 caps Allergies Allergy/AdvReac Type Severity Reaction Status Date / Time ciprofloxacin Allergy Unknown DIZZY/LIGHT Verified 04/23/23 13:47 HEADED/CONF USION/AGITA TION Sulfa (Sulfonamide Allergy Unknown Verified 04/23/23 13:47 Antibiotics) Review of Systems Constitutional Comments: Does describe a headache Cardiovascular Comments: No chest pain Respiratory Comments: No shortness of breath Gastrointestinal Comments: No abdominal pain Musculoskeletal Comments: No pains in arms or legs Patient History Medical History Encounter for care or replacement of suprapubic tube Mack catheter in place Encounter for monitoring androgen deprivation therapy Chronic indwelling Mack catheter Retention of urine Osteoporosis Prostate cancer Excessive cerumen in both ear canals Lower urinary tract symptoms (LUTS) Screen for colon cancer Asthma Elevated PSA Depression Hypertension Coronary artery disease Hyperlipidemia Surgical History S/P CABG x 3 (~2006) History of colon polyps (~2007) Family History Father Stroke Social History marital status: number of children: 3 household members: spouse, family and children 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 Status: Former smoker alcohol intake: never Smoking Status: Former smoker alcohol intake frequency: holidays/special occasions only Substance Use Type: does not use Exam Initial Vital Signs Initial Vital Signs: Vital Signs Pulse Rate 107 H 07/23/23 02:37 Respiratory Rate 19 07/23/23 02:37 Pulse Oximetry 96 07/23/23 02:37 HENMT Head: abrasion (Top of head) Resp Effort & Inspection: normal respiratory effort Auscultation: clear to auscultation bilaterally Cardio Rate: regular rate Rhythm: regular rhythm GI Inspection: normal to inspection and non-distended Neuro Other: Alert to person and place Extrem Other: Patient is able to ambulate. No tenderness to palpation of his pelvis. Is able to flex and extend at the hips and knees without discomfort. Upper extremities have no discomfort with movement. Course Orders Ordered: ED Orders 07/23/23 02:38 CT cervical spine wo con Stat CT head/brain wo con Stat 07/23/23 03:23 EKG-12 Lead Stat Vital Signs Vital signs: Vital Signs - 8 hr 07/23/23 02:37 07/23/23 02:43 07/23/23 03:05 Temperature 97.8 F Pulse Rate 107 H 106 H 116 H Respiratory Rate 19 18 32 H Blood Pressure 114/69 Pulse Oximetry 96 93 93 Oxygen Delivery Method Room Air 07/23/23 03:06 07/23/23 03:06 07/23/23 03:30 Temperature Pulse Rate 118 H Respiratory Rate 23 Blood Pressure 139/86 133/78 Pulse Oximetry 94 Oxygen Delivery Method 07/23/23 03:30 07/23/23 04:00 07/23/23 04:00 Temperature Pulse Rate 118 H 107 H Respiratory Rate 22 23 Blood Pressure 119/72 Pulse Oximetry 87 L 95 Oxygen Delivery Method 07/23/23 04:30 07/23/23 04:54 07/23/23 04:54 Temperature Pulse Rate 106 H 56 L 107 H Respiratory Rate 19 Blood Pressure 98/70 Pulse Oximetry 94 83 L 94 Oxygen Delivery Method 07/23/23 05:00 07/23/23 05:00 Temperature Pulse Rate 92 H Respiratory Rate 20 Blood Pressure 103/70 Pulse Oximetry 93 Oxygen Delivery Method MDM - Fall Imaging Data CT scan - head: Radiologist's Impression: No acute intracranial process Subcortical/periventricular white matter hypoattenuation statistically represents changes of chronic microvascular ischemia. CT - cervical spine: Radiologist's Impression: No acute fracture of the cervical spine Reversal of normal cervical lordosis at C4 through C6 Multilevel facet and uncovertebral joint arthropathy ECG Data Attestation: I personally reviewed and interpreted this ECG as follows: Interpretation: Sinus tachycardia Ventricular rate 121 First-degree AV block NE interval of 216 milliseconds Normal axis Nonspecific ST T wave changes MDM Narrative Medical decision making narrative: Head CT and cervical spine CT showed no acute pathology. He does not seem to have any extremity injuries. Patient initially was tachycardic in the 120s. Was sinus tachycardia. This improved to less than 110. Patient was able to ambulate in the emergency department. Patient is tolerating oral intake. This did appear to be a mechanical fall. Will discharge patient home. Discharge Plan Departure Patient Disposition: Home Clinical Impression: Fall Instructions: How to Prevent Falls Prescriptions: No Action aspirin 81 mg Capsule 81 mg PO DAILY Qty: 0 tamsulosin 0.4 mg capsule See Rx Instructions .ROUTE .COMPLEX Qty: 60 11RF Dose Instruction: TAKE 2 CAPSULES BY MOUTH DAILY Rx Instructions: TAKE 2 CAPSULES BY MOUTH DAILY calcium carbonate [Tums] 200 mg calcium (500 mg) tablet,chewable 200 mg PO TID nystatin 100,000 unit/gram powder 1 applic topical BID Qty: 60 2RF Referrals: Mumtaz Melton DO [Primary Care Provider] - Stand Alone Forms: Patient Portal/API
--- NOTE | 2023-07-23 05:07 | PC.NURSE ---
pt ambulated with walker with standby assist only
== END 2023-07-23 05:35 | disposition home or self-care (01) ==
PROVIDERS: Emergency Provider Emergency Medicine; PCP Family Medicine
DX: Z04.3 Encounter for examination and observation following other accident (principal); S09.90XA Unspecified injury of head, initial encounter; R00.0 Tachycardia, unspecified; I44.0 Atrioventricular block, first degree; I45.10 Unspecified right bundle-branch block; W10.9XXA Fall (on) (from) unspecified stairs and steps, initial encounter
CPT/HCPCS: 36415; 70450; 72125; 93005; 99283; 99284

== ENCOUNTER → 2023-08-13 15:42 | Outpatient (CLI) | payer OTHER, SELFPAY ==
[2023-08-13 17:09] LABS: Add Manual Diff / Slide Review NO; Basophils Absolute Auto 0 /uL (0-100); Basophils Percent Auto 0.5 % (0-2); Eosinophils Absolute Auto 600 /uL (0-450); Eosinophils Percent Auto 7.4 % (2-4); Hematocrit 41.1 % (41-53); Hemoglobin 13.8 g/dL (13.5-17.5); Lymphocytes Absolute Auto 1400 /uL (1100-4500); Lymphocytes Percent Auto 18.5 % (25-40); Mean Corpuscular HGB Conc 33.6 % (30-36); Mean Corpuscular Hemoglobin 29.8 PG (26-34); Mean Corpuscular Volume 88.6 fL (80-100); Monocytes Absolute Auto 600 /uL (0-900); Monocytes Percent Auto 8.2 % (3-14); Neutrophils Absolute Auto 4900 /uL (1500-7000); Neutrophils Percent Auto 65.4 % (50-75); Platelet Count 264 X10^3/uL (150-400); Red Blood Cell Count 4.64 X10^6/uL (4.5-5.9); Red Cell Distribution Width 13.4 % (11.6-14.8); White Blood Cell Count 7.5 X10^3/uL (4.5-11.0)
[2023-08-13 17:48] LABS: Alanine Aminotransferase 15 IU/L (<50); Albumin 4.2 g/dL (3.5-5.0); Albumin Globulin Ratio 1.1 (1.0-2.8); Alkaline Phosphatase 119 U/L (38-126); Aspartate Aminotransferase 30 IU/L (17-59); BUN Creatinine Ratio 25.4 (6-22); Blood Urea Nitrogen 17 mg/dL (9-20); Carbon Dioxide 26 mmol/L (22-32); Chloride 102 mmol/L (98-107); Cholesterol 138 mg/dL (140-199); Estimated Glomerular Filt Rate > 60 mL/min (>60); Globulin 3.7 g/dL (1.7-4.1); Glucose 100 mg/dL (80-110); HDL Cholesterol 34 mg/dL (40-60); HEMOLYSIS 18 (0-50); LDL Cholesterol Calculated 81 mg/dL (<100); Potassium 4.6 mmol/L (3.4-5.1); Sodium 137 mmol/L (137-145); Total Protein 7.9 g/dL (6.3-8.2); Triglycerides 113 mg/dL (35-150)
[2023-08-13 18:00] LABS: Prostate Specific Antigen 0.286 ng/mL (0.10-4.00)
== END ==
PROVIDERS: Family Medicine; PCP Family Medicine; Referring Provider Urology; Visit Provider Urology
DX: Z13.220 Encounter for screening for lipoid disorders (principal); E78.2 Mixed hyperlipidemia; C61 Malignant neoplasm of prostate
CPT/HCPCS: 36415; 80053; 80061; 84153; 85025

== ENCOUNTER → 2023-08-16 15:02 | Outpatient (CLI) | payer OTHER, SELFPAY | PROVIDERS: PCP Family Medicine; Visit Provider Urology | DX: N39.0 Urinary tract infection, site not specified (principal); R33.8 Other retention of urine; R39.9 Unspecified symptoms and signs involving the genitourinary system | CPT/HCPCS: 51702; 87077; 87086; 87186 ==

== ENCOUNTER → 2023-11-04 15:11 | Outpatient (CLI) | payer OTHER, SELFPAY ==
[2023-11-04 17:46] LABS: Prostate Specific Antigen 0.131 ng/mL (0.10-4.00)
== END ==
PROVIDERS: PCP Family Medicine; Referring Provider Urology; Visit Provider Urology
DX: R97.20 Elevated prostate specific antigen [PSA] (principal); R39.9 Unspecified symptoms and signs involving the genitourinary system
CPT/HCPCS: 36415; 84153

== ENCOUNTER → 2023-11-12 15:25 | Outpatient (CLI) | payer OTHER, SELFPAY | PROVIDERS: PCP Family Medicine; Visit Provider Urology | DX: C61 Malignant neoplasm of prostate (principal); R33.8 Other retention of urine; Z43.5 Encounter for attention to cystostomy; R39.9 Unspecified symptoms and signs involving the genitourinary system; M81.8 Other osteoporosis without current pathological fracture; Z97.8 Presence of other specified devices; Z79.818 Long term (current) use of other agents affecting estrogen receptors and estrogen levels | CPT/HCPCS: 51702; 87077; 87086; 87186; 96372; 96402; 99214; J0897; J9217 ==

== ENCOUNTER → 2023-12-10 13:51 | Outpatient (CLI) | payer OTHER, SELFPAY | PROVIDERS: PCP Family Medicine; Visit Provider Urology | DX: Z43.5 Encounter for attention to cystostomy (principal); R33.8 Other retention of urine; Z97.8 Presence of other specified devices | CPT/HCPCS: 51702; 87077; 87086; 87186 ==

== ENCOUNTER → 2024-01-07 14:51 | Outpatient (CLI) | payer OTHER, SELFPAY | PROVIDERS: PCP Family Medicine; Visit Provider Urology | DX: Z43.5 Encounter for attention to cystostomy (principal); R33.8 Other retention of urine; Z97.8 Presence of other specified devices | CPT/HCPCS: 87077; 87086 ==

== ENCOUNTER → 2024-02-04 14:43 | Outpatient (CLI) | payer OTHER, SELFPAY | PROVIDERS: PCP Family Medicine; Visit Provider Urology | DX: Z43.5 Encounter for attention to cystostomy (principal); R33.8 Other retention of urine; Z97.8 Presence of other specified devices | CPT/HCPCS: 51705; 87077; 87086; 87186 ==

== ENCOUNTER → 2024-06-02 15:01 | Outpatient (CLI) | payer OTHER, SELFPAY | PROVIDERS: PCP Family Medicine; Visit Provider Urology | DX: Z43.5 Encounter for attention to cystostomy (principal); Z97.8 Presence of other specified devices; R33.8 Other retention of urine | CPT/HCPCS: 87077; 87086 ==

== ENCOUNTER → 2024-06-30 15:01 | Outpatient (CLI) | payer OTHER, SELFPAY | PROVIDERS: PCP Family Medicine; Visit Provider Urology | DX: Z43.5 Encounter for attention to cystostomy (principal); R33.8 Other retention of urine | CPT/HCPCS: 87086 ==

== ENCOUNTER → 2024-08-04 15:49 | Outpatient (CLI) | payer OTHER, SELFPAY | PROVIDERS: PCP Family Medicine; Visit Provider Urology | DX: Z43.5 Encounter for attention to cystostomy (principal); Z97.8 Presence of other specified devices; R33.8 Other retention of urine | CPT/HCPCS: 87086 ==

== ENCOUNTER → 2024-08-04 16:23 | Outpatient (CLI) | payer OTHER, SELFPAY ==
[2024-08-04 19:47] LABS: Vitamin D 25 Hydroxy (D3) 40.9 ng/mL (30.0-100.0)
[2024-08-04 21:40] LABS: Prostate Specific Antigen 0.145 ng/mL (0.10-4.00)
== END ==
PROVIDERS: PCP Family Medicine; Referring Provider Urology; Visit Provider Urology
DX: C61 Malignant neoplasm of prostate (principal); M81.0 Age-related osteoporosis without current pathological fracture; Z43.5 Encounter for attention to cystostomy; Z97.8 Presence of other specified devices; R33.8 Other retention of urine
CPT/HCPCS: 36415; 82306; 84153; 87086

== ENCOUNTER → 2024-09-01 16:16 | Outpatient (CLI) | payer OTHER, SELFPAY | PROVIDERS: PCP Family Medicine; Visit Provider Urology | DX: R33.8 Other retention of urine (principal); Z97.8 Presence of other specified devices | CPT/HCPCS: 87077; 87086 ==

== ENCOUNTER → 2024-09-29 15:51 | Outpatient (CLI) | payer OTHER, SELFPAY ==
[2024-09-29 15:48] VITALS: BMI 24.4
== END ==
PROVIDERS: PCP Family Medicine; Visit Provider Urology
DX: Z97.8 Presence of other specified devices (principal); Z43.5 Encounter for attention to cystostomy; R33.8 Other retention of urine
CPT/HCPCS: 51705; 87077; 87086; 87186

== ENCOUNTER → 2024-10-27 16:41 | Outpatient (CLI) | payer OTHER, SELFPAY ==
[2024-09-29 15:48] VITALS: BMI 24.4
== END ==
PROVIDERS: PCP Family Medicine; Visit Provider Urology
DX: Z43.5 Encounter for attention to cystostomy (principal); Z97.8 Presence of other specified devices; R39.9 Unspecified symptoms and signs involving the genitourinary system
CPT/HCPCS: 51702; 87077; 87086

== ENCOUNTER → 2024-12-29 16:00 | Outpatient (CLI) | payer OTHER, SELFPAY ==
[2024-09-29 15:48] VITALS: BMI 24.4
== END ==
PROVIDERS: PCP Family Medicine; Visit Provider Urology
DX: Z43.5 Encounter for attention to cystostomy (principal); R33.8 Other retention of urine; Z97.8 Presence of other specified devices
CPT/HCPCS: 87077; 87086